=== PATIENT | female | born 1960 | race Caucasian/White ===

== ENCOUNTER 2019-04-04 14:03 | Day surgery (SDC) | payer OTHER, SELFPAY ==
--- NOTE | 2019-04-02 21:29 | PCM.HP.BLA ---
History and Physical Date of Admission: 04/04/19 Louise Vinson 1960 ? ? REFERRING PHYSICIAN: Luz Wisdom MD ? CHIEF COMPLAINT: Consult (Consult Colonoscopy) ? HPI: The patient is a 58 year old female presents for consideration of screening for colon cancer via colonoscopy. Last colonoscopy was in 2007 No colon cancer known in family. Denies heartburn, denies acid indigestion. Had been evaluated by ENT and felt that she had reflux. Trialed on antacids with no relief. Feels like mucus buildup in the pharyngeal area. Occasional blood in stools. Denies abdominal pain Denies changes in bowel habits. Denies weight changes, denies fevers. She states that she takes an herbal at night time to be able to have a bowel movement, otherwise when she stops taking, then she is constipated ? ? PAST MEDICAL HISTORY ? Multiple thyroid nodules ? ? PAST SURGICAL HISTORY ? APPENDECTOMY ? 1974 ? CARPAL TUNNEL Right 2013 ? COLONOSCOP W/ OR W/O [facility] SPEC ? 04/28/2008 ? Colonoscopy ? ? Current Outpatient Medications ? OTC NUTRITIONAL SUPPLEMENT immune support ? LYSINE ORAL Take by mouth. ? lisinopril (ZESTRIL, PRINIVIL) 10 mg tablet Take 10 mg by mouth once daily. ? hydroCHLOROthiazide (HYDRODIURIL, ESIDRIX) 25 mg tablet ? ? BURRER OPERATOR THYROID 30 mg tablet ? ? OTC NUTRITIONAL SUPPLEMENT liver balance ? multivitamin tablet Take 1 tablet by mouth once daily. ? peg 3350-electrolytes (COLYTE) 240-22.72-6.72 -5.84 gram solution Take 4,000 mL by mouth one time only for 1 dose. ? L.ACID/L.CASEI/B.BIF/B.KRYSTIAN/FOS (PROBIOTIC BLEND ORAL) Take by mouth. ? ? ALLERGIES: Nsaids (Non-Steroidal Anti-Inflammatory Drug) ? PERSONAL HISTORY: Social History Tobacco Use ? Smoking status: Never Smoker ? Smokeless tobacco: Never Used Substance Use Topics ? Alcohol use: No ? Drug use: No ? FAMILY HISTORY ? Heart Father ? ? Diabetes Father ? ? Cancer Sister ? ? Half Sister: Ovarian/Uterine ? Cancer Maternal Grandmother ? ? Ovarian/Uterine ? ? REVIEW OF SYSTEMS: General - denies fevers Cardiovascular - denies chest pain, has MVP Pulmonary - denies shortness of breath Gastrointestinal - see HPI, denies abdominal pain Neurological - denies seizures Genitourinary - denies burning with urination Hematological - denies spontaneous/prolonged bleeding Skin - denies nonhealing skin wounds Musculoskeletal - denies chronic joint/back pain Endocrine - denies diabetes Psychological ? denies hallucinations ? PHYSICAL EXAMINATION: General: ?The patient is 56 year old female, well nourished, well hydrated in no acute distress. ?The patient is oriented to time, place, and person. VITALS: Blood pressure 164/94, pulse 77, temperature 36.9 ?C (98.5 ?F), temperature source Temporal Artery, height 170.2 cm (5' 7), weight 76 kg (167 lb 9.6 oz), last menstrual period 05/16/2014, SpO2 100 %. Body mass index is 26.25 kg/m?. Head ? Normocephalic. EOM intact with sclera clear and no icterus noted. Mouth with mucus membranes moist. Neck - supple with no jugular venous distention noted. Trachea is midline. Lungs ? clear to auscultation. Normal breath sounds. No rales/rhonchi/wheezing noted. No labored breathing noted, such as retractions. . Heart ? normal S1 and S2 auscultated. No rubs/clicks/murmurs noted. Regular rate. Abdomen ? soft and benign. Normal bowel sounds. Extremities ? no calf tenderness noted. Skin ? normal skin integrity. Neurological ??gait normal, no focal deficits noted Psych ? calm and appropriate ? IMPRESSION: screening for colon cancer via colonoscopy ? PLAN: I have discussed the above with the patient. I have offered colonoscopy, possible biopsies I have explained the procedure to the patient. I have counseled the patient as to the risks of the procedure, including but not limited to: infection, bleeding, perforation of the GI tract, injury to any intraabdominal organs such as the liver/spleen, inability to complete the procedure, complications of anesthesia, etc. ? the patient understands. The patient wishes to proceed. I have answered all questions to the patient?s satisfaction and the patient has no further questions. . Diagnoses: (Z12.11) Screening for colon cancer (primary encounter diagnosis) Return to Clinic: The patient is instructed to follow-up with me as above
[2019-04-04] VITALS (7 sets, daily range): BP systolic 145–159; BP diastolic 79–92; PULSE 63–68; RESP 16; TEMP 35.6–36.7; O2SAT 98–100; BMI 25.4
--- NOTE | 2019-04-04 15:15 | COLBX_PTH ---
PATIENT: THELMA TOLEDO LOC: EN U#:[id number] AGE/SX: 58/F ROOM: RE04/04/[address]: Dr. Luz Wisdom MD : 1960 BED: DIS: 04/04/2019 SPEC #: [id number] RECD: 04/04/19 16:47 STATUS: LEOBARDO RELuis Antonio #: [id number] MARK: 04/04/19 15:[address]: Luz Wisdom DEPT: SURGICAL PATHOLOGY RECD BY: Jose Guadalupe Horton ENTERED: 04/05/19 10:45 SP TYPE: COLON BX OTHR DR: Dr. Narcisa Segovia, Tissues: COLON BIOPSY Procedures: Surgery Specimen Level IV HEADER OPERATION: Colonoscopy (MAC) PRE-OP DIAGNOSIS: Screening TISSUE SUBMITTED: Right colon polyp (cold snare) MICROSCOPIC DIAGNOSIS Right colon polyp, biopsy: Tubular adenoma. AM:malena 04/06/19 MICROSCOPIC DESCRIPTION Slides are reviewed. GROSS DESCRIPTION Received in fixative is one container labeled with the patient's name and designated right colon polyp. The specimen consists of one irregular fragment of light cisneros soft tissue that measures 0.2 x 0.2 x 0.1 cm. The specimen is totally submitted in one cassette. / AM:malena 04/05/19 TC:5 CPT: 19495
--- NOTE | 2019-04-04 16:39 | OP.COLON_ITS ---
Patient Name: Louise Vinson Procedure Date: 04/04/2019 3:32 PM Date of : 1960 Age: 58 Procedure: Colonoscopy Indications: Screening for colorectal malignant neoplasm Providers: Luz Wisdom MD Referring MD: Narcisa Segovia Medicines: See the Anesthesia note for documentation of the administered medications Patient Profile: Refer to note in patient chart for documentation of history and physical. Last Colonoscopy: 10 years ago. Complications: No immediate complications. Procedure: Pre-Anesthesia Assessment: - see anesthesia note After I obtained informed consent, the scope was passed under direct vision. Throughout the procedure, the patient's blood pressure, pulse, and oxygen saturations were monitored continuously. The colonoscope was introduced through the anus and advanced to the cecum, identified by the appendiceal orifice, IC valve and transillumination. The colonoscopy was performed without difficulty. The patient tolerated the procedure well. The quality of the bowel preparation was poor, there was still retained fecal material. Therefore lavage and aspiration was done to clear the fecal material. This took some time. The wilkins were cleared adequately after prolonged time was spent in doing this. Scope In: 3:42:55 PM Scope Withdrawal Time 0 hours 14 minutes 58 seconds Scope Out: 4:29:39 PM Total Procedure Duration Time 0 hours 46 minutes 44 seconds Findings: The perianal and digital rectal examinations were normal. Pertinent negatives include normal sphincter tone. A 3 to 8 mm polyp was found in the ascending colon. The polyp was semi-pedunculated. The polyp was removed with a cold biopsy forceps. Resection and retrieval were complete. Verification of patient identification for the specimen was done by the nurse. Estimated blood loss was minimal. Non-bleeding internal hemorrhoids were found. Impression: - Preparation of the colon was poor. - One 3 to 9 mm polyp in the ascending colon, removed with a cold biopsy forceps. Resected and retrieved. - Non-bleeding internal hemorrhoids. Recommendation: - Repeat colonoscopy date to be determined after pending pathology results are reviewed for surveillance based on pathology results. - My office will telephone with pathology results in 1-2 weeks with above - Continue present medications. Procedure Code(s): --- Professional --- 77215, Colonoscopy, flexible; with biopsy, single or multiple Diagnosis Code(s): --- Professional --- Z12.11, Encounter for screening for malignant neoplasm of colon K64.8, Other hemorrhoids D12.2, Benign neoplasm of ascending colon CPT copyright 2017 [employer]. All rights reserved. The codes documented in this report are preliminary and upon travel coordinator review may be revised to meet current compliance requirements. MD Luz Blair MD 04/04/2019 4:38:38 PM This report has been signed electronically. Number of Addenda: 0 Note Initiated On: 04/04/2019 3:32 PM
== END 2019-04-04 17:22 | disposition home or self-care (01) ==
LOC: EN 14:05 → AC 14:09
PROVIDERS: Referring Provider Surgery; Visit Provider Surgery
PROC: 0DJD8ZZ Inspection of Lower Intestinal Tract, Via Natural or Artificial Opening Endoscopic (ICD-10-PCS; CPT 45378; principal; 2019-04-04 15:10)
DX: Z12.11 Encounter for screening for malignant neoplasm of colon (principal); D12.2 Benign neoplasm of ascending colon; K64.8 Other hemorrhoids; I10 Essential (primary) hypertension; E04.1 Nontoxic single thyroid nodule; Z78.0 Asymptomatic menopausal state; Z79.899 Other long term (current) drug therapy
CPT/HCPCS: 45380; 88305; J7050; J7120; J2405

== ENCOUNTER 2021-02-21 17:29 | Outpatient (CLI) | payer OTHER, SELFPAY ==
[2021-02-21] MEDS: 0.9% Saline Lock 10 ML Syringe IV (17:43)
[2021-02-21 17:45] VITALS: BP 126/69; PULSE 89; RESP 16; TEMP 37.4; O2SAT 99; BMI 25.8
[2021-02-21 18:40] VITALS: BP 130/63; PULSE 73; RESP 16; TEMP 36.8; O2SAT 99
[2021-02-21 19:40] VITALS: BP 156/82; PULSE 98; RESP 16; TEMP 36.7; O2SAT 100
== END 2021-02-21 19:40 | disposition home or self-care (01) ==
LOC: MS3OUT 17:29 → MS3 17:30
PROVIDERS: Referring Provider Nurse Practitioner Adult Health; Visit Provider Nurse Practitioner Adult Health
DX: U07.1 COVID-19 (principal)
CPT/HCPCS: J7050; M0243; A4216; Q0240

== ENCOUNTER 2022-01-18 16:10 | Emergency (ER) | payer OTHER, SELFPAY ==
[2022-01-18 16:12] VITALS: BP 175/72; PULSE 83; RESP 16; TEMP 36.4; O2SAT 98; BMI 25.7
--- NOTE | 2022-01-18 16:20 | EKG12_ITS ---
Test Reason : CP Blood Pressure : / mmHG Vent. Rate : 076 BPM Atrial Rate : 076 BPM P-R Int : 156 ms QRS Dur : 084 ms QT Int : 380 ms P-R-T Axes : 046 018 045 degrees QTc Int : 427 ms Normal sinus rhythm with sinus arrhythmia Nonspecific ST and T wave abnormality Abnormal ECG Confirmed by RENZO FRANCISCO, BRODERICK ([id number]), editor managing newspaper AILYN BOWMAN ([id number]) on 01/20/2022 11:16:29 AM Referred By: TL Confirmed By:BRODERICK MULLER MD
[2022-01-18 16:32] VITALS: O2SAT 98
--- NOTE | 2022-01-18 16:34 | NURSING ---
NO OLD EKGS
--- NOTE | 2022-01-18 16:48 | RAD_ITS ---
STUDY: X-RAY CHEST REASON FOR EXAM: Female, 61 years old. chest pain TECHNIQUE: Single AP portable view of the chest. COMPARISON: None. FINDINGS: The lungs are clear and expanded. There is no demonstrated pleural abnormality. Normal size heart. Normal mediastinum and angela. Normal visualized pulmonary arteries. Normal visualized aortic arch and descending thoracic aorta. Normal visualized thoracic spine. Normal visualized ribs, clavicles, and shoulders. There is no demonstrated abnormality of the visualized soft tissue structures of the upper abdomen. RAD/Chest 1 View (Portable) IMPRESSION: Normal x-ray examination of the chest. Electronically Signed: Win Melgar MD at 17:42 EDT ,
[2022-01-18 16:52] LABS: Absolute Lymphocyte Count 1.94 X10^3/uL (0.83-4.51); Absolute Neutrophil Count 2.7 X10^3/uL (2.0-7.7); Basophil# 0.03 X10^3/uL; Basophil% 0.6 % (0-1); Eosinophil# 0.04 X10^3/uL; Eosinophils% 0.8 % (0-5); Hematocrit 35.5 % (37-47); Hemoglobin 11.5 g/dL (12.0-15.0); Lymphocyte # 1.94 X10^3/ul (0.83-4.51); Lymphocyte % 37.4 % (19-41); Mean Corp Hgb Conc 32.4 g/dL (32-36); Mean Corpuscular Hgb 28.8 pg (27.0-32.0); Mean Platelet Vol. 10.5 fl (6.2-12.0); Monocyte# 0.52 X10^3/uL; NRBC Flagged by Analyzer 0 % (0-5); Neutrophil # 2.65 X10^3/uL (2.7-7.7); Platelet Count 235 K/mm3 (150-450); RBC Distribution Width CV 13.5 % (11.6-14.6); RBC Distribution Width SD 44.3 fl (35.1-43.9); Red Blood Count 3.99 M/mm3 (4.2-5.4); White Blood Count 5.2 K/mm3 (4.4-11.0)
[2022-01-18 17:11] LABS: Anion Gap 7 (5-15); BUN 18 mg/dL (7-18); BUN/Creat Ratio 20.9 RATIO (10-20); Calcium,Total 9.7 mg/dL (8.5-10.1); Chloride 107 mmol/L (98-107); Creatinine, Serum 0.86 mg/dL (0.55-1.02); EST Glomerular Filtration Rate 71 mL/min (>60); Est Glom Filt Rate - Afr Amer 86 mL/min (>60); Glucose 109 mg/dL (74-106); Potassium 3.4 mmol/L (3.5-5.1); Sodium Level 141 mmol/L (136-145); Troponin-I HS 10 pg/mL (3.0-54.0)
--- NOTE | 2022-01-18 17:19 | CT_ITS ---
STUDY: CT BRAIN WITHOUT CONTRAST REASON FOR EXAM: Female, 61 years old. headaches RADIATION DOSAGE (If Supplied By Facility): CTDIvol = ( 44.99 ) mGy, DLP = ( 762.36 ) mGycm TECHNIQUE: Transaxial CT imaging of the brain was performed without administration of intravenous contrast material. Individualized dose optimization techniques were used for this CT. COMPARISON: No relevant priors. FINDINGS: Normal soft tissue structures. Normal calvarium. Normal size ventricles and extra-axial spaces for the patient''s age. Normal white matter tracts of the cerebral hemispheres. Normal basal ganglia and thalami. Normal brainstem. Normal cerebellum. There is no intracranial hemorrhage. There are no findings of an acute ischemic infarction. Normal visualized paranasal sinuses. CT/Brain/Head without Contrast IMPRESSION: Normal unenhanced CT scan of the brain. Electronically Signed: Win Melgar MD at 17:51 EDT ,
[2022-01-18 18:09] VITALS: BP 152/78; PULSE 64; RESP 16; O2SAT 99
--- NOTE | 2022-01-18 18:47 | EDS_ITS ---
HPI History of Present Illness Chief Complaint: Hypertension Informant: patient Narrative Narrative: Patient is here for concern of her blood pressure. She has a longstanding history of blood pressure. She was on twelve 1/2 hydrochlorothiazide and 10 mg of lisinopril. She was having some intermittent palpitations and pounding in her chest with a little pressure in the back of her head. This was correlated with elevated blood pressure. She saw her doctor and her dose was increased to 20 of lisinopril and 12-1/2 of hydrochlorothiazide. She still has a symptoms occasionally. She denies chest pain but she gets a thumping feeling. She was concerned because her blood pressures been running 150s and even as high as 190 once at home. She is due to fly out of the country here in a few days and she was concerned because of the blood pressure. She is not having symptoms now. [facility] Medical History HTN (hypertension) HTN (hypertension) Home Medications hydrochlorothiazide 25 mg tablet 12.5 mg PO DAILY 03/14/16 [History Last Taken Unknown] lisinopril 20 mg tablet 20 mg PO QHS 03/14/16 [History Last Taken Unknown] thyroid (pork) 30 mg tablet ([place] Thyroid) 30 mg PO DAILY 03/14/16 [History Last Taken 04/04/19] Vsc 1 cap PO DAILY 04/01/19 [History Last Taken Unknown] Mucinex 02/21/21 [History Last Taken Unknown] [place] 3 02/21/21 [History Last Taken Unknown] famotidine 20 mg tablet (Pepcid) 20 mg PO DAILY 02/21/21 [History Last Taken Unknown] Allergy/AdvReac Type Severity Reaction Status Date / Time NSAIDS (Non-Steroidal AdvReac Other Verified 01/18/22 16:39 Anti-Inflamma Social History Smoking Status: Never smoker ROS ROS ED Constitutional Constitutional ED: Denies chills or fever(s) Eyes Eyes: Denies blurry vision, change in vision or diplopia ENT ENT ED: Denies rhinorrhea or sore throat Cardiovascular Cardiovascular: Reports palpitations; Denies chest pain or racing heartbeat Respiratory/Chest Respiratory/Chest: Denies cough or dyspnea Gastrointestinal Gastrointestinal: Denies nausea or vomiting Musculoskeletal Musculoskeletal: Denies back pain or neck pain Integumentary Denies rash Neurologic Neurologic: Reports headache(s); Denies paresthesias or weakness Endocrine Endocrinology: Denies polydipsia or polyuria Hematologic/Lymphatic Hematologic/Lymphatic: Denies easy bleeding or easy bruising Allergic/Immunologic Allergic/Immunologic ED: Denies urticaria EXAM Physical Exam Const Vital Signs: 01/18/22 16:12 01/18/22 16:32 01/18/22 16:39 Temperature 97.5 F L Temperature Source Temporal Pulse Rate 83 Respiratory Rate 16 Respiratory Effort Normal Blood Pressure 175/72 H Blood Pressure Mean 106 Pulse Ox 98 98 Oxygen Delivery Method Room Air Room Air 01/18/22 18:09 Temperature Temperature Source Pulse Rate 64 Respiratory Rate 16 Respiratory Effort Blood Pressure 152/78 H Blood Pressure Mean 102 Pulse Ox 99 Oxygen Delivery Method Room Air Positive well nourished Constitutional Narrative: No temporal artery tenderness. No sign of mass skin changes or tenderness on the scalp General Appearance ED: NAD HEENT Reports moist mucous membranes Eyes PERRL and EOMs intact bilaterally Resp normal respiratory effort and clear to auscultation bilaterally Cardio regular rate and regular rhythm GI normal to inspection, nondistended, normoactive bowel sounds and non-tender Palpation: soft Back/Spine no CVA tenderness Extremity normal to inspection General Extremety ED: Negative for edema or tenderness General Extremity: Negative for edema Neuro oriented x3 and no sensory deficits noted Sensorium / Orientation: alert Motor Exam: strength 5/5 throughout Psych mental status grossly normal Skin no rashes or lesions noted MDM MDM MDM Narrative Medical decision making narrative: Patient had an essentially normal CBC other than minimal anemia at 11.5. This is nonspecific and can be worked up as an outpatient. Potassium was minimally low at 3.4. Diet should correct this. Glucose was 109. Troponins negative. Chest x-ray was negative. CT scan of the head was negative Patient's blood pressure is generally been running about 150s over 80s here. I explained that this needs long-term treatment but does not need acute lowering. She has room to increase her lisinopril if her blood pressure remains high. We recommended contacting her physician. Return with chest pain, trouble breathing, neurologic deficit or other concerns Lab Data Attestation: I reviewed the patient's lab results. Labs: Laboratory Results - last 24 hr 01/18/22 01/18/22 16:35 16:35 WBC 5.2 RBC 3.99 L Hgb 11.5 L Hct 35.5 L MCV 89.0 MCH 28.8 MCHC 32.4 RDW Std Deviation 44.3 H RDW Coeff of [place] 13.5 Plt Count 235 MPV 10.5 Immature Gran % (Auto) 0.200 Neut % (Auto) 51.0 Lymph % (Auto) 37.4 [place] % (Auto) 10.0 Eos % (Auto) 0.8 Baso % (Auto) 0.6 Absolute Neuts (auto) 2.7 Absolute Lymphs (auto) 1.94 Nucleated RBC % 0 Sodium 141 Potassium 3.4 L Chloride 107 Carbon Dioxide 27.0 Anion Gap 7 BUN 18 Creatinine 0.86 Estim Creat Clear Calc 66.80 Est GFR (MDRD) Af Amer 86 Est GFR (MDRD) Non-Af 71 BUN/Creatinine Ratio 20.9 H Glucose 109 H Calcium 9.7 Troponin I High Sens 10 Radiography Diagnostic Testing: Clinical Impression(s) from Imaging Studies Chest X-Ray 01/18/22 16:48 IMPRESSION: Normal x-ray examination of the chest. Electronically Signed: Win Melgar MD at 17:42 EDT , Brain CT 01/18/22 17:19 IMPRESSION: Normal unenhanced CT scan of the brain. Electronically Signed: Win Melgar MD at 17:51 EDT , Discharge Plan Triage Chief Complaint: Hypertension ED Provider: Alireza Hutton Dx/Rx/DC Orders Clinical Impression: Elevated blood pressure reading, Intermittent headache, History of palpitations Prescriptions: No Action lisinopril 20 MG tablet 20 mg PO QHS hydrochlorothiazide 25 MG tablet 12.5 mg PO DAILY thyroid (pork) [[place] Thyroid] 30 MG tablet 30 mg PO DAILY Vsc 1 cap PO DAILY famotidine [Pepcid] 20 mg Tablet 20 mg PO DAILY Mucinex [place] 3 Primary Care Provider: Carmen Man NP Referrals: Carmen Man NP, [employer] [Primary Care Provider] - As soon as possible Disposition Disposition: Home, Self Care
--- NOTE | 2022-01-18 18:54 | EX.ED.DYSGE1 ---
HPI History of Present Illness Chief Complaint: Hypertension [facility] Medical History HTN (hypertension) HTN (hypertension) Home Medications hydrochlorothiazide 25 mg tablet 12.5 mg PO DAILY 03/14/16 [History Last Taken Unknown] lisinopril 20 mg tablet 20 mg PO QHS 03/14/16 [History Last Taken Unknown] thyroid (pork) 30 mg tablet ([place] Thyroid) 30 mg PO DAILY 03/14/16 [History Last Taken 04/04/19] Vsc 1 cap PO DAILY 04/01/19 [History Last Taken Unknown] Mucinex 02/21/21 [History Last Taken Unknown] [place] 3 02/21/21 [History Last Taken Unknown] famotidine 20 mg tablet (Pepcid) 20 mg PO DAILY 02/21/21 [History Last Taken Unknown] Allergy/AdvReac Type Severity Reaction Status Date / Time NSAIDS (Non-Steroidal AdvReac Other Verified 01/18/22 16:39 Anti-Inflamma Social History Smoking Status: Never smoker EXAM Physical Exam Const Vital Signs: 01/18/22 16:12 01/18/22 16:32 01/18/22 16:39 Temperature 97.5 F L Temperature Source Temporal Pulse Rate 83 Respiratory Rate 16 Respiratory Effort Normal Blood Pressure 175/72 H Blood Pressure Mean 106 Pulse Ox 98 98 Oxygen Delivery Method Room Air Room Air 01/18/22 18:09 Temperature Temperature Source Pulse Rate 64 Respiratory Rate 16 Respiratory Effort Blood Pressure 152/78 H Blood Pressure Mean 102 Pulse Ox 99 Oxygen Delivery Method Room Air [facility] MDM Lab Data Labs: Laboratory Results - last 24 hr 01/18/22 01/18/22 16:35 16:35 WBC 5.2 RBC 3.99 L Hgb 11.5 L Hct 35.5 L MCV 89.0 MCH 28.8 MCHC 32.4 RDW Std Deviation 44.3 H RDW Coeff of [place] 13.5 Plt Count 235 MPV 10.5 Immature Gran % (Auto) 0.200 Neut % (Auto) 51.0 Lymph % (Auto) 37.4 [place] % (Auto) 10.0 Eos % (Auto) 0.8 Baso % (Auto) 0.6 Absolute Neuts (auto) 2.7 Absolute Lymphs (auto) 1.94 Nucleated RBC % 0 Sodium 141 Potassium 3.4 L Chloride 107 Carbon Dioxide 27.0 Anion Gap 7 BUN 18 Creatinine 0.86 Estim Creat Clear Calc 66.80 Est GFR (MDRD) Af Amer 86 Est GFR (MDRD) Non-Af 71 BUN/Creatinine Ratio 20.9 H Glucose 109 H Calcium 9.7 Troponin I High Sens 10 Radiography Diagnostic Testing: Clinical Impression(s) from Imaging Studies Chest X-Ray 01/18/22 16:48 IMPRESSION: Normal x-ray examination of the chest. Electronically Signed: Win Melgar MD at 17:42 EDT Reading Location ID and State: [id number] / [employer] Tel , Service support , Brain CT 01/18/22 17:19 IMPRESSION: Normal unenhanced CT scan of the brain. Electronically Signed: Win Melgar MD at 17:51 EDT Reading Location ID and State: [id number] / [employer] Tel , Service support , EKG Initial EKG: Comments: He can for work-up of palpitations read by me shows sinus rhythm with mild sinus arrhythmia. Overall rate of 76. Nonspecific ST and T wave change but no sign of infarct or ischemia acutely. WI interval, QRS duration and QTc normal. Discharge Plan Triage Chief Complaint: Hypertension ED Provider: Alireza Hutton Dx/Rx/DC Orders Clinical Impression: Elevated blood pressure reading, Intermittent headache, History of palpitations Prescriptions: No Action lisinopril 20 MG tablet 20 mg PO QHS hydrochlorothiazide 25 MG tablet 12.5 mg PO DAILY thyroid (pork) [[place] Thyroid] 30 MG tablet 30 mg PO DAILY Vsc 1 cap PO DAILY famotidine [Pepcid] 20 mg Tablet 20 mg PO DAILY Mucinex [place] 3 Primary Care Provider: Carmen Man NP Referrals: Carmen Man NP, [facility] [Primary Care Provider] - As soon as possible Disposition Disposition: Home, Self Care
[2022-01-18 19:25] VITALS: BP 152/78; RESP 18
== END 2022-01-18 19:27 | disposition home or self-care (01) ==
PROVIDERS: Emergency Provider Emergency Medicine; PCP Nurse Practitioner Family; Visit Provider Emergency Medicine
DX: I10 Essential (primary) hypertension (principal); R51.9 Headache, unspecified; Z79.899 Other long term (current) drug therapy
CPT/HCPCS: 70450; 71045; 80048; 84484; 85025; 93005; 99284; A4216

== ENCOUNTER 2022-04-25 05:55 | Day surgery (SDC) | payer OTHER, SELFPAY ==
--- NOTE | 2022-04-24 22:36 | PCM.HP.BLA ---
History and Physical Date of Admission: 04/25/22 HISTORY OF PRESENT ILLNESS 61 year old woman presents with a painful soft tissue mass left anterior thigh that she has had for several years that has recently enlarged over the last several months.? She denies any trauma.? She denies any recent infection. She also noticed a soft tissue mass on her right anterior thigh that has started to enlarge but more slowly as compared to the left thigh. ? She has smaller soft tissue masses on her bilateral upper extremities and right upper abdominal wall/lower chest wall that are not bothering her at this time.? She has had a basal cell carcinoma excised from her right medial leg in the past.? She has no problems with using her extremities for activities of daily living.? There is some discomfort when the left anterior thigh mass is bumped.? She presents at this time for further evaluation and treatment. PAST MEDICAL HISTORY Benign lipomatous neoplasm of kidney COVID-19 Dysesthesia Rosibel's thyroiditis Heart murmur HTN (hypertension) HTN (hypertension) Personal history of skin cancer Skin cancer, basal cell Subcutaneous mass of abdominal wall Subcutaneous mass of left lower extremity Subcutaneous mass of left upper extremity Subcutaneous mass of right lower extremity Subcutaneous mass of right upper extremity UTI (urinary tract infection) PAST SURGICAL HISTORY Carpal tunnel syndrome History of appendectomy ALLERGIES NSAIDS MEDICATIONS hydrochlorothiazide lisinopril thyroid (pork) ([place] Thyroid) Vsc 1 [place] 3? famotidine FAMILY HISTORY Mother - Angina at rest, Hypertension, Multiple lipomas Father - Angina at rest, Diabetes, Heart disease, CVA (cerebral vascular accident), Lymphoma Brother - Diabetes, Heart disease Sister - Lymphoma SOCIAL HISTORY Smoking Status:? Never smoker alcohol intake:? never substance use type:? does not use REVIEW OF SYSTEMS General - Denies fever and weight loss.? Has fatigue. Eyes - Denies cataracts and glaucoma. ENT - Denies nasal congestion and sore throat. Endocrine - Has excessive thirst and urination.? Has Rosibel's disease. Skin - Has personal history of skin cancer.? Has painful soft tissue mass left anterior thigh.? Has soft tissue masses right anterior thigh, bilateral upper extremities, and right upper abdominal wall/lower chest wall. Musculoskeletal - Denies joint pain, joint stiffness, weakness of muscles and joints, back pain, and arthritis. Neuro - Denies headaches. Cardiovascular - Denies chest pain, fatigue, and shortness of breath with exertion. Psych - Denies anxiety and depression. Respiratory - Denies chronic cough and shortness of breath. Gastrointestinal - Denies nausea, vomiting, diarrhea, and constipation. Hematologic - Denies abnormal bruising and bleeding. Genitourinary - Denies hematuria.? Has urinary frequency. PHYSICAL EXAMINATION General - Alert and Oriented. HEENT - PERRL. EOMI.? Throat is clear.? No suspicious lesions noted. Neck - Supple and nontender.? No cervical adenopathy.? No suspicious lesions noted. Lungs - Clear to auscultation. Heart - Regular rate and rhythm. Abdomen - Soft and nondistended.? On the right upper abdominal wall/lower chest wall over the lower ribs is a soft tissue mass.? Measures 2 cm.? It is mobile.? No evidence of infection. No other suspicious lesions noted. Extremities - FROM. No axillary adenopathy.? Radial pulses are palpable.? Patient is right hand dominant.? On the left proximal anterior thigh is a soft tissue mass that is multilobular.? It is mobile.? Some discomfort with palpation.? Measures 9 cm.? No ulceration.? No evidence of infection.? On the right proximal anterior thigh is a soft tissue mass.? It is mobile.? Measures 7 cm.? No ulceration.? Mass is nontender.? No evidence of infection. On the left proximal volar forearm are two soft tissue masses.? They are mobile.? The radial one measures 2.5 cm.? The ulnar one measures 2.5 cm.? No ulceration.? Masses are nontender.? No evidence of infection. On the left medial antecubital area is a soft tissue mass.? It is mobile.? Measures 4 cm.? No ulceration.? Mass is nontender.? No evidence of infection. On the left anterior arm is a soft tissue mass.? It is mobile.? Measures 4 cm.? No ulceration.? Mass is nontender.? No evidence of infection. On the right volar forearm are three soft tissue masses.? They are mobile.? The proximal one measures 2 cm.? The mid forearm one measures 4 cm.? The distal one measures 2 cm.? No ulceration.? Masses are nontender.? No evidence of infection. On the right medial antecubital area is a soft tissue mass.? It is mobile.? Measures 4 cm.? No ulceration.? Mass is nontender.? No evidence of infection. On the right anterior arm is a soft tissue mass.? It is mobile.? Measures 2 cm.? No ulceration.? Mass is nontender.? No evidence of infection. Neuro - CN II-XII grossly intact. Psych - Normal mood and affect. ASSESSMENT 1.? 9 cm painful soft tissue mass left proximal anterior thigh. 2.? 7 cm soft tissue mass right proximal anterior thigh. 3.? 2 cm soft tissue mass right upper abdominal wall/lower chest wall. 4.? 2.5 cm soft tissue mass left proximal volar forearm, ulnar. 5.? 2.5 cm soft tissue mass left proximal volar forearm, radial. 6.? 4 cm soft tissue mass left medial antecubital area. 7.? 4 cm soft tissue mass left anterior arm. 8.? 2 cm soft tissue mass right proximal volar forearm. 9.? 4 cm soft tissue mass right mid volar forearm. 10.? 2 cm soft tissue mass right distal volar forearm. 11,? 4 cm soft tissue mass right medial antecubital area. 12. 2 cm soft tissue mass right anterior arm. 13.? Personal history of skin cancer. PLAN Recommend excision of the painful soft tissue mass left proximal anterior thigh and send it to Pathology for analysis to rule out carcinoma.? If carcinoma is present, then further excision is necessary.? Skin graft or skin flap reconstruction may be needed. The other soft tissue masses are not bothering her at this time.? If they become symptomatic in the future, then excision can be done at that time. Due to the large size of the soft tissue mass left proximal anterior thigh, a drain will be placed for 7-10 days followed by irland[place] wrap compression to minimize a seroma formation postoperatively. After excision, if there are some irregularities at the edges, power assisted lipoplasty may be done to help feather out the edges. Surgery can be done under local anesthesia and IV sedation or general anesthesia on an outpatient basis. Patient was informed of the risks and complications of the procedure including alternatives to surgery.? These were discussed with the patient personally.? Patient voices understanding and wishes to proceed. Some of the risks and complications were included in a form from the [place] [employer]. Patient states that she may have one of her kidneys removed in the near future due to what appears to be the growth of a benign appearing mass with a vascular component according to the patient. After healing has occurred, she will have the soft tissue mass right proximal anterior thigh excised. UPDATE Since the dictation was done yesterday, 04/24/22, there has been no changes to her History and Physical for her elective surgery on 04/25/22. Assessment & Plan Assessment/Plan (1) Subcutaneous mass of left lower extremity: (2) Dysesthesia: (3) Personal history of skin cancer:
[2022-04-25] VITALS (7 sets, daily range): BP systolic 123–174; BP diastolic 67–80; PULSE 63–79; RESP 16–18; TEMP 36.6–36.7; O2SAT 94–99; BMI 26.6
[2022-04-25] MEDS: Lactated Ringers 1,000 ML 15 ML IV (06:30)
[2022-04-25] MEDS: Cefazolin 2 GM in 0.9% Normal Saline 100 ML IV (07:26)
--- NOTE | 2022-04-25 07:30 | MASS_PTH ---
PATIENT: THELMA TOLEDO LOC: [facility] [place] U#:[id number] AGE/SX: 61/F ROOM: RE04/25/[address]: Dr. Mynor Le MD : 1960 BED: DIS: 04/25/2022 SPEC #: [id number] RECD: 04/25/22 10:35 STATUS: LEOBARDO REQ #: [id number] MARK: 04/25/22 07:[address]: Mynor Le DEPT: SURGICAL PATHOLOGY RECD BY: Di Parish ENTERED: 04/25/22 13:12 SP TYPE: Mass OTHR DR: Carmen Man, SAS ETL DEVELOPER-C Tissues: Thigh, NOS Procedures: Surgery Specimen Level IV HEADER OPERATION: Excision soft tissue mass anterior thigh PRE-OP DIAGNOSIS: 9 cm painful soft tissue mass left proximal anterior thigh TISSUE SUBMITTED: Left proximal anterior thigh mass MICROSCOPIC DIAGNOSIS Left proximal anterior thigh soft tissue mass, excision: Consistent with angiolipoma. AM:malena 04/28/2022 MICROSCOPIC DESCRIPTION Slides are reviewed. GROSS DESCRIPTION Received in fixative is one container labeled with the patient's name and designated left proximal anterior thigh mass. The specimen consists of multiple lobulated fragments of yellow adipose tissue that in aggregate measure 14 x 13 x 4 cm. Sections reveal yellow adipose cut surfaces without area of hemorrhage, necrosis or cystic degeneration. Lime Kiln Operator sections are submitted in four cassettes. / SJ:malena 04/25/2022 TC:1 CPT: 29540
[2022-04-25] MEDS: Lidocaine 2% /Epi 1:100 (20ml) 20 ML VIAL (07:57)
[2022-04-25] MEDS: Mupirocin Ointment 22gm Tube 1 APPLIC (09:40)
--- NOTE | 2022-04-25 09:49 | PCM.OPRPT ---
Problems Associated Problem List Diagnoses (1) Subcutaneous mass of left lower extremity: (2) Dysesthesia: (3) Personal history of skin cancer: Report of Operation Date of Procedure: 04/25/22 Pre-Operative Diagnosis: 1. 9 cm painful soft tissue mass left proximal anterior thigh. 2. Personal history of skin cancer. Post-Operative Diagnosis: Same. Surgery/Procedure Performed:: Excision 9 cm painful soft tissue mass left proximal anterior thigh with 9 cm layered closure. Description of Surgical Findings:: 61 year old woman presents with a painful soft tissue mass left anterior thigh that she has had for several years that has recently enlarged over the last several months.? She denies any trauma.? She denies any recent infection. She also noticed a soft tissue mass on her right anterior thigh that has started to enlarge but more slowly as compared to the left thigh. ? She has smaller soft tissue masses on her bilateral upper extremities and right upper abdominal wall/lower chest wall that are not bothering her at this time.? She has had a basal cell carcinoma excised from her right medial leg in the past.? She has no problems with using her extremities for activities of daily living.? There is some discomfort when the left anterior thigh mass is bumped.? She presents at this time for further evaluation and treatment. Patient was informed of the risks and complications of the procedure including alternatives to surgery. These were discussed with the patient personally. Patient voices understanding and wishes to proceed. Some of the risks and complications were included in a form from the [employer] [employer]. I used Brandee absorbable hemostat, (I used 2 vials). Reference Number - [id number]. Lot Number - [id number]. Expiration - November 05, 2026. Reference Number - [id number]. Lot Number - [id number]. Expiration - July 08, 2026. I used 900 ml Tumescent Anesthetic Solution 0.05%. ? Normal Saline- 936.5 ml. ? Lidocaine 1% - 50 ml. ? Epinephrine (1 mg/ml) - 1 ml. ? Sodium Bicarbonate - 12.5 mEq I removed 300 ml fatty aspirate from the left proximal anterior thigh area. Another 300 ml of tumescent anesthetic solution oozed out of the wound incision during the lipoplasty. Surgeon: Mynor Le MD supervisor home economics: Rhiannon Frank RNFA. Type of Anesthesia: General Anesthesiologist: Flaquito Mckeon MD and Sebastian Nguyen CRNA Specimen's removed: Painful soft tissue mass left proximal anterior thigh to Pathology. Drains: Khadar. Estimated Blood Loss (mL): 50. Description of Procedure: Patient was taken to OR in supine position and was placed under general anesthesia. The left thigh was prepped and draped in the usual fashion. SCD's were placed for DVT prophylaxis. Perioperative antibiotics were given intravenously. Longitudinal marking was made in the central aspect of the soft tissue mass. Using xylocaine with epinephrine, the marking left proximal anterior thigh was infiltrated. After waiting 5 minutes for the anesthetic to take effect, I made an incision into the subcutaneous tissue. The soft tissue mass was lumpy. There were several smaller soft tissue masses in the superficial subcutaneous tissue that were manually removed and will be sent with the rest of the specimen. After dissecting the mass in its entirety, I then excised the mass off the underlying muscle and fascia. There was no involvement of the mass with the muscle and fascia. The femoral sensory nerves overlying the muscle were seen and preserved. There was some lumpiness at the edges of the wound, so I used power assisted lipoplasty to help with contouring and feathering in this area. I temporarily closed the thigh incision with surgical clips. I used the existing incision for the infiltration of the tumescent solution into the left proximal anterior thigh. ?I I infiltrated about 900 mL into the area.? I then used a power-assisted lipoplasty and removed about 300 mL of fatty aspirate from the left proximal anterior thigh.? I stopped when there was minimal friction and the areas felt clinically smooth and some bloody aspirate was noted in the canister. Because the wound was not occlusive with the surgical clips, some of the tumescent solution came out of the wound, about 250 ml. I irrigated the wound with saline. Hemostasis was obtained with electrocautery. I placed a size 15 blade through a separate stab incision inferiorly and secured to the skin with 3-0 Nylong suture. I sprayed Brandee absorbable hemostat into the left thigh wound to minimize seroma. I used 2 vials. I closed the thigh wound in a multiple layered fashion with 3-0 Monocryl interrupted sutures for the deep dermis and subcutaneous tissue. The skin was approximated with 4-0 Prolene vertical mattress interrupted sutures. ? At the end of the procedure, no hematomas were noted.? I placed antibiotic ointment on the incision followed by Kerlix gauze and a compression irland[place] wrap. ? Patient tolerated the procedure well and was sent to PACU in satisfactory condition. Patient will be sent home on antibiotics and pain medication. Patient will followup in a week for a wound check and for discussion of the pathology report. The sutures will be removed in 2 weeks. The drain will be removed in 10-14 days. She will keep her left leg elevated when sitting. She can ambulate but should minimize standing. Grafts/Implants Used: Brandee x2. Procedure Start Time: 07:57 Procedure Stop Time: 09:46 Complications None. Admit VTE Documentation VTE Present on Admission: No VTE Mechan Device Prophylaxis: SCD's VTE Pharm Prophylaxis ordered?: No Addendum Addendum: Surgery Charges CPT - 69252 ICD-10 - R22.42, R20.8, Z85.828
--- NOTE | 2022-04-25 10:14 | PCM.DC ---
Discharge Instructions Diet Discharge Diet: No restrictions Activity Discharge Activity: May Shower (place plastic bag over left entire leg when showering. Or leave the left leg out of the shower and when finished, can wash the left leg in the sink. Avoid getting the drain site wet.) and - (elevate left leg when sitting. minimize standing.) May shower in (days): 1 (place plastic bag over left entire leg when showering. ) May resume sexual activity in: 10-14 days Weight Bearing Status: Weight bearing as tolerated Keep extremity elevated above heart level: Left Leg Additional Activity Instructions:: if the ir[place]a is too tight, patient may loosen the [place] and rewrap the thigh. Dressing / Incision Call your doctor if your incision/area has: Continuous Slow Oozing, Sudden Increased Bleeding, Increased Pain/ Swelling, Increased Redness, Foul Smelling Discharge and Swelling at the incision site Call your doctor if you observe: Fever of 101 or Higher, Coldness, Increased Pain, Shortness of breath, Chest pain, Calf discomfort and Uncontrolled pain Change Dressing in: do not change dressing (will change operative dressing in the office.) Remove Dressing in: do not remove dressing (can remove the outer [place] wrap if it is too tight and then rewrap a little looser.) Cleanse incision/area with: Keep Dressing Clean & Dry (wear plastic bag over left leg when showering.) Drain: Suction (empty and record drainage daily.) Follow Up Care Please Follow Up With: Mynor Le MD When: one week. call [phone] for appt. Test Results: Test results from this visit will be discussed in further detail at your follow-up appointment, if applicable. Discharge Plan Admission Primary Reason for Your Visit: excision painful soft tissue mass left proximal anterior thigh Attending Provider: Mynor Le Primary Care Provider: Carmen Man NP Discharge Orders/Prescriptions Prescriptions: New cefadroxil 500 mg capsule 500 mg PO BID Qty: 30 0RF L.acidoph,saliva-B.bif-S.therm [Acidophilus Probiotic Blend] 175 mg capsule 1 cap PO DAILY Qty: 30 0RF oxycodone-acetaminophen [Percocet] 5-325 mg tablet 1 tab PO Q6H PRN (Reason: pain (scale score 7-10)) 7 Days Qty: 28 0RF Rx Instructions: 28 tabs (twenty-eight) Continued lisinopril 20 MG tablet 20 mg PO BID hydrochlorothiazide 25 MG tablet 6.25 mg PO DAILY thyroid (pork) [[place] Thyroid] 30 MG tablet 30 mg PO DAILY [place] 3 1 tab OTHER DAILY famotidine [Pepcid] 20 mg tablet 20 mg PO DAILY PRN (Reason: Heartburn) garlic 1,000 mg Capsule 1,000 mg PO DAILY Bill Multiple/Chelated Mineral Tablet 3 tab PO BID multivitamin Capsule 1 cap PO DAILY fiber Capsule 6 cap PO DAILY cholecalciferol (vitamin D3) [Vitamin D3] 25 mcg (1,000 unit) Capsule 25 mcg PO DAILY Referrals / Follow Up: Mynor Le MD [Med Staff - Active Staff] - (followup one week.) Carmen Man NP, UROGYNECOLOGY PHYSICIAN-C [Primary Care Provider] - Disposition Disposition (needs filled in before D/C Order can be placed): Home, Self Care
== END 2022-04-25 12:10 | disposition home or self-care (01) ==
LOC: SDC 05:55 → AC 05:56
PROVIDERS: PCP Nurse Practitioner Family; Referring Provider Nurse Practitioner Family; Visit Provider Surgery
PROC: (CPT 27337; principal; 2022-04-25 07:15)
DX: R22.42 Localized swelling, mass and lump, left lower limb (principal); R20.8 Other disturbances of skin sensation; I10 Essential (primary) hypertension; Z86.16 Personal history of COVID-19; R19.01 Right upper quadrant abdominal swelling, mass and lump; Z85.828 Personal history of other malignant neoplasm of skin; E06.3 Autoimmune thyroiditis; R22.32 Localized swelling, mass and lump, left upper limb; R22.31 Localized swelling, mass and lump, right upper limb; R22.41 Localized swelling, mass and lump, right lower limb
CPT/HCPCS: 27337; 00400; 88305; J7030; J7120; J2405

== ENCOUNTER → 2022-09-17 | Outpatient (CLI) | payer OTHER, SELFPAY ==
--- NOTE | 2022-09-17 08:25 | CT_ITS ---
STUDY: CT ABDOMEN AND PELVIS WITH CONTRAST REASON FOR EXAM: Female, 61 years old. Hypertension -- Creatinine on August 01 was 0.58. RADIATION DOSAGE (If Supplied By Facility): CTDIvol = ( 14.74 ) mGy, DLP = ( 835.69 ) mGycm TECHNIQUE: Transaxial images were obtained from the dome of the diaphragm to the symphysis pubis without oral contrast. Oral and amp; IV Readi-CAT and amp; 100mL Isovue-370 was administered. Sagittal and coronal images were reconstructed. Individualized dose optimization techniques were used for this CT. COMPARISON: None. FINDINGS: The visualized lung bases are unremarkable. The visualized portions of the heart are within normal limits. There is decreased attenuation of the liver consistent with steatosis. Normal gallbladder and extrahepatic biliary system. Normal spleen. Normal pancreas. Normal bilateral adrenal glands. 2 adjacent subcentimeter cysts are seen in the lateral upper pole of the right kidney. Small cysts are also seen in the left kidney. There is a small hiatal hernia. Normal small intestine. Moderate amount of fecal material is seen in the colon more prominent in the right hemicolon. The patient is status post appendectomy. Normal abdominal aorta. Normal inferior vena cava. Normal retroperitoneum. Normal urinary bladder. Normal abdominal wall. Normal osseous structures. CT/Abdomen/Pelvis WITH Contrast IMPRESSION: Moderate amount of fecal material is seen in the colon. Fatty projection of the liver. Small bilateral renal cysts. Electronically Signed: Steve Land MD at 14:53 EDT ,
[2022-09-17 08:55] LABS: CREATININE FINGERSTICK < 0.9 mg/dL (0.55-1.02); EGFR FINGERSTICK > 60.0000 mL/min (>60)
== END | disposition home or self-care (01) ==
LOC: CT 08:24
PROVIDERS: PCP Nurse Practitioner Family; Referring Provider Internal Medicine Cardiovascular Disease; Visit Provider Internal Medicine Cardiovascular Disease
DX: I10 Essential (primary) hypertension (principal)
CPT/HCPCS: 74177; Q9967

== ENCOUNTER → 2022-11-25 | Outpatient (CLI) | payer OTHER, SELFPAY ==
[2022-11-25 10:42] LABS: Anion Gap 3 (5-15); BUN 15 mg/dL (7-18); BUN/Creat Ratio 21.2 RATIO (10-20); Calcium,Total 9.1 mg/dL (8.5-10.1); Chloride 106 mmol/L (98-107); Creatinine, Serum 0.71 mg/dL (0.55-1.02); EST Glomerular Filtration Rate 89 mL/min (>60); Est Glom Filt Rate - Afr Amer 108 mL/min (>60); Glucose 94 mg/dL (74-106); Potassium 3.6 mmol/L (3.5-5.1); Sodium Level 139 mmol/L (136-145)
== END | disposition home or self-care (01) ==
PROVIDERS: PCP Nurse Practitioner Family; Referring Provider Nurse Practitioner Family; Visit Provider Nurse Practitioner Family
DX: Z51.81 Encounter for therapeutic drug level monitoring (principal); Z79.899 Other long term (current) drug therapy
CPT/HCPCS: 36415; 80048

== ENCOUNTER → 2023-04-14 | Outpatient (CLI) | payer OTHER, SELFPAY ==
--- NOTE | 2023-04-14 13:45 | ST.MBS ---
Modified Barium Swallow Patient Information Study Date: 04/14/23 Study Time: 13:00 Direct Billable Minutes: 98 Total Minutes procedure & reportin Diagnosis: Dysphagia R13.10 Referring Physician: Johann Leos Reason for Referral: Objectively assess swallow function, assess risk for aspiration, and determine recommendations for least restrictive diet textures and compensatory strategies to improve safety of swallow. Medical History: PMH: Dysphagia, HTN, Hiatal hernia, GERD (SEE EMR for full PMH). The patient was referred from Dr. Leos due to concerns for dysphagia. The patient had an EGD completed years ago that revealed a hiatal hernia and recommended taking medication for reflux. The patient felt that reflux medication did not help. She had an episode of choking on her own saliva in congregational ~1 month ago resulting in her gasping for air. She has ~1-2 episodes of coughing and choking on foods every 6 months, which also resulted in her gasping for air. These issues have been happening for the past 2-3 years. She also reports excess mucous in her throat and coughing when she lies down. Current Diet Ordered: Regular textures / Thin liquids Dentition: WNL and Natural Teeth Mental Status: WNL Respiratory Status: Oxygenating on Room Air Penetration-Aspiration Scale Penetration-Aspiration Scale: OBJECTIVE ASSESSMENT OF SWALLOW FUNCTION (QUANTITATIVE ? PER TRIAL): PENETRATION / ASPIRATION SCALE (GARBER): 1 = does not enter airway 2 = enters airway/above vocal folds/ejected 3 = enters airway/above vocal folds/not ejected 4 = enters airway/contacts vocal folds/ejected 5 = enters airway/contacts vocal folds/not ejected 6 = enters airway/below vocal folds/ejected 7 = enters airway/below vocal folds/not ejected despite effort 8 = enters airway/below vocal folds/no effort VIDEOFLOROSCOPIC SCALE SCORE (GARBER): Grade I = aspiration of material that has penetrated into the laryngeal vestibule, intact cough reflex Grade II = aspiration < 10 % of the bolus, intact cough reflex Grade III = aspiration of < 10 % of the bolus, reduced cough reflex or aspiration of > 10 % of the bolus, intact cough reflex Grade IV = aspiration of > 10 % of the bolus, reduced cough reflex Penetration-Aspiration Scale Score Thin Liquid via teaspoon: Result: 1= does not enter airway Thin Liquid via teaspoon Trial 2: Result: 1= does not enter airway Thin Liquid via large single sip: cup: Result: 1= does not enter airway Patrick Thick Liquid via large single sip: cup: Result: 1= does not enter airway Pudding via teaspoon: Result: 1= does not enter airway Comment: Esophageal screen = complete clearance. 1/2 Cookie: Result: 1= does not enter airway Comment: Esophageal screen = Retention of ~1/2 of cookie throughout the mid and lower esophagus. Thin Liquid via sequential sips:straw: Result: 1= does not enter airway Comment: Esophageal screen = retrograde flow of barium contrast from the lower to mid esophagus with eventual clearance. Oral Phase Labial Seal: No Labial Escape Tongue Control During Bolus Hold: Posterior escape of less than half of bolus Bolus Preparation/Mastication: Timely and efficient chewing and mashing Bolus Transport/Lingual Motion: Brisk tongue motion Oral Residue: Residue collection on oral structures (piecemeal deglutition of cookie) Pharyngeal Phase Initiation of Pharyngeal Swallow: Bolus head in pyriforms Soft Palate Elevation: Trace column of contrast/air between soft palate and pharyngeal wall Laryngeal Elevation: Comp. Superior move thyroid cart w/comp. apprx arytenoid cart-epig pet Anterior Hyoid Excursion: Complete anterior movement Epiglottic Movement: Complete inversion Laryngeal Vestibule Closure at Height of Swallow: Complete; no air/contrast in laryngeal vestibule Pharyngeal Stripping Wave: Present - complete Pharyngoesophageal Segment Opening: Complete distension and complete duration; no obstruction of flow Tongue Base Retraction: Narrow column of contrast between tongue base & post. pharyngeal wall (sequential sips of thin via straw) Pharyngeal Residue: Collection of residue within or on pharyngeal structures (mild pharyngeal residue with sequential sips of thin, independently cleared with an additional swallow after completion of drink) Esophageal Phase Esophageal Clearance: Esophageal retention w/ retrograde flow below pharyngoesophageal seg. Diagnosis/Impression Diagnosis: Oropharyngeal swallow function grossly WNL; Esophageal dysphagia R13.14 Impression: The patient's oropharyngeal swallow function was grossly WNL. Piecemeal deglutition of cookie with complete clearance after second swallow. The patient's swallow onset with the bolus head in the pyriforms with larger or sequential sips; however, she demonstrated good airway closure throughout the study with no laryngeal penetration or aspiration observed. Small collection of residue in the pyriforms with sequential sips of thin liquids, which she fully cleared with an additional swallow; otherwise, the patient had trace pharyngeal residues after the swallow. The esophageal phase is primarily marked by... -Esophageal retention of cookie in the mid and lower esophagus, which cleared after liquid wash. -Retrograde flow of thin liquids from the lower to the mid esophagus prior to emptying through the lower esophageal sphincter. -CP bar at the level of C5, which did not appear to impact bolus clearance through the upper esophageal sphincter. Recommendations Diet: Regular Textures and Thin Liquids Compensatory Strategies: Small Bites, Small Sips, Slow Rate, Alternate bites/solids and sips/liquids, Sitting upright and Remain sitting upright for 30 minutes after PO intake Recommend Repeat Modified Barium Swallow: No Need for Skilled Speech Therapy Services: No Recommended Referrals: GI Consult (Esophageal retention of cookie. Retrograde flow of liquids.) Education Completed: 1. Described result of evaluation. Status Active ST Patient: Active Contact Information [facility] Speech Therapy:: Willa Lancaster M.A. [facility] Speech-Language Pathologist [facility] [id number] [place] [address] [phone]
== END | disposition home or self-care (01) ==
LOC: RAD 12:57
PROVIDERS: Referring Provider Surgery; Visit Provider Surgery
DX: R13.10 Dysphagia, unspecified (principal)
CPT/HCPCS: 74230; 92611

== ENCOUNTER → 2023-09-23 | Outpatient (CLI) | payer OTHER, SELFPAY ==
--- NOTE | 2023-09-23 17:28 | US_ITS ---
STUDY: RENAL ULTRASOUND - COMPLETE REASON FOR EXAM: Female, 62 years old. RENAL MASS TECHNIQUE: Ultrasound evaluation of the kidneys was performed with real-time and static malave-scale imaging. COMPARISON: CT 09/17/2022 FINDINGS: RIGHT KIDNEY: Normal location of the right kidney, which is normal in size. The right kidney measures 11.2 cm. There is a normal cortex of the right kidney. The renal cortex measures 1.4 cm. There is no change in the 2 subcentimeter hyperechoic areas within the midsection of right kidney corresponding to the fat-containing mass is seen on CT consistent with small lipomas. There are no right renal calculi. There is no right hydronephrosis. DISTAL RIGHT URETER: There is non-visualization of the distal right ureter. There is no demonstrated right ureterovesical junction calculus. There is a visualized right ureteral jet. LEFT KIDNEY: Normal location of the left kidney, which is normal in size. The left kidney measures 10.5 cm. There is a normal cortex of the left kidney. The renal cortex measures 1.3 cm. Similar 3 cm bilobed hyperechoic mass within the midsection of the left kidney which corresponds to a heterogeneous area seen on CT but not definitely consistent with a lipoma or angiomyolipoma. Therefore correlation with a renal mass protocol CT is recommended. There are no left renal calculi. There is no left hydronephrosis. DISTAL LEFT URETER: There is non-visualization of the distal left ureter. There is no demonstrated left ureterovesical junction calculus. There is a visualized left ureteral jet. BLADDER: The distended urinary bladder has a volume of 175 ml. The empty urinary bladder has a volume of 120 ml. There is a normal wall thickness of the distended urinary bladder. There is no demonstrated mass within the urinary bladder. There are no demonstrated bladder calculi. US/Kidney and Bladder IMPRESSION: 1. 2 subcentimeter lipomas in the midsection of right kidney. 2. 3 cm hyperechoic mass in the midsection left kidney likely consistent with lipoma or angiomyolipoma. Correlation with renal mass protocol CT is recommended. 3. Significant post void residual. Electronically Signed: Win Melgar MD at 19:47 EDT ,
== END | disposition home or self-care (01) ==
LOC: US 17:27
PROVIDERS: Referring Provider Urology; Visit Provider Urology
DX: D49.511 Neoplasm of unspecified behavior of right kidney (principal)
CPT/HCPCS: 76770

== ENCOUNTER → 2023-10-15 | Outpatient (CLI) | payer OTHER, SELFPAY ==
--- NOTE | 2023-10-15 07:58 | CT_ITS ---
STUDY: CT ABDOMEN AND PELVIS WITH AND WITHOUT CONTRAST REASON FOR EXAM: Female, 63 years old. Follow up for renal mass. RADIATION DOSAGE (If Supplied By Facility): CTDIvol = ( 14.17 ) mGy, DLP = ( 2074.15 ) mGycm TECHNIQUE: Transaxial images were obtained from the dome of the diaphragm to the symphysis pubis without oral contrast. 100ML ISOVUE 370 was administered. Sagittal and coronal images were reconstructed. Individualized dose optimization techniques were used for this CT. COMPARISON: Comparison is made with prior study dated September 17, 2022. FINDINGS: The visualized lung bases are unremarkable. The visualized portions of the heart are within normal limits. There is decreased attenuation of the liver consistent with steatosis. Normal gallbladder and extrahepatic biliary system. Normal spleen. Normal pancreas. Normal bilateral adrenal glands. Tiny hypodensities in the right kidney. These were demonstrated to be angiomyolipomas on prior ultrasound. Stable 2 cm x 2.9 cm fat-containing renal mass in the midsection of the left kidney suggestive of a angiomyolipoma. This corresponds to the sonographic findings dated September 23, 2023. 1 cm cyst in the lateral aspect of the left kidney.. There is a small hiatal hernia. Normal small intestine. There are scattered colonic diverticula consistent with diverticulosis. The patient is status post appendectomy. There is scattered atherosclerotic calcification of the abdominal aorta, without a demonstrated aneurysm. Normal inferior vena cava. Normal retroperitoneum. Normal urinary bladder. Normal abdominal wall. Normal osseous structures. CT/CT Abd/Pelvis W/WO Contrast IMPRESSION: Stable fat-containing nodular density in the left kidney as described corresponding to the sonographic findings. This most likely represents angiomyolipoma. Fatty infiltration of the liver. Electronically Signed: Steve Land MD at 9:09 EDT ,
[2023-10-15 08:24] LABS: CREATININE FINGERSTICK < 1.0 mg/dL (0.55-1.02); EGFR FINGERSTICK > 60.0000 mL/min (>60)
== END | disposition home or self-care (01) ==
LOC: CT 07:56
PROVIDERS: Referring Provider Urology; Visit Provider Urology
DX: D49.511 Neoplasm of unspecified behavior of right kidney (principal)
CPT/HCPCS: 74178; Q9967

== ENCOUNTER → 2024-09-20 | Outpatient (CLI) | payer OTHER, SELFPAY ==
--- NOTE | 2024-09-20 12:30 | US_ITS ---
PROCEDURE: KIDNEY AND BLADDER 09/20/2024 REASON FOR EXAM: RENAL MASS TECHNIQUE: Bilateral renal ultrasound. COMPARISON: Comparison is made with prior sonogram dated September 23, [address] scan dated October 15, 2023. FINDINGS: RIGHT Kidney Size: 10.8 cm x 5.2 cm x 6.1 cm Volume: 177.6 mL Cortical Thickness (if discernible): 1.4 (>6mm is normal) Once again, there are 2 subcentimeter angiomyolipomas. These are unchanged. The larger measures 8 mm x 8 mm x 9 mm. LEFT Kidney Size: 10.6 cm x 4.2 cm x 4.9 cm Volume: 113.6 mL Cortical Thickness (if discernible): 1.5 (>6mm is normal) Stable 1.9 cm x 2 cm x 1.8 cm angiomyolipoma. Stable 1.4 cm x 1.5 cm 1.2 cm renal cyst. The urinary bladder is unremarkable. US/Kidney and Bladder IMPRESSION: Stable examination with bilateral angiomyolipomas and left renal cyst. Reading Location: [id number]
== END | disposition home or self-care (01) ==
LOC: OPUS 12:27
PROVIDERS: Referring Provider Urology; Visit Provider Urology
DX: D49.511 Neoplasm of unspecified behavior of right kidney (principal)
CPT/HCPCS: 76770

== ENCOUNTER 2024-12-01 15:36 | Emergency (ER) | payer OTHER, SELFPAY ==
[2024-12-01 15:37] VITALS: BP 152/64; PULSE 67; RESP 18; TEMP 37; O2SAT 98; BMI 26.5
--- NOTE | 2024-12-01 16:06 | EKG12_ITS ---
Test Reason : Blood Pressure : */* mmHG Vent. Rate : 69 BPM Atrial Rate : 69 BPM P-R Int : 172 ms QRS Dur : 86 ms QT Int : 400 ms P-R-T Axes : 38 -10 9 degrees QTcB Int : 428 ms Sinus rhythm with marked sinus arrhythmia Minimal voltage criteria for LVH, may be normal variant ( R in aVL ) Nonspecific ST abnormality Abnormal ECG Confirmed by RENZO FRANCISCO, BRODERICK ([id number]), features editor REX LOPEZ ([id number]) on 12/05/2024 9:40:51 AM Referred By: Mainor Portillo Confirmed By: BRODERICK MULLER MD
--- NOTE | 2024-12-01 16:07 | ED.VIS.BACK ---
HPI History of Present Illness Chief Complaint: Back Narrative Narrative: 64-year-old female past medical history of hypertension presents with her daughter because of thoracic back pain that she has had between her shoulder blades since Thursday, 4 days ago. Today, she began having anterior chest pain and heaviness. She denies any fevers or chills, no cough, no nausea or vomiting, no diaphoresis. She also had left arm pain. It is described more as dull and achy. Her back pain is relatively constant, and her chest pain that began today at around 1030 approximately 5 hours ago is relatively constant as well. No recent falls or trauma. 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 Skin cancer, basal cell Heart murmur UTI (urinary tract infection) COVID-19 Home Medications ?Medication ?Instructions ?Recorded ?Last Taken ?Type thyroid (pork) 30 mg tablet 30 mg PO DAILY 03/14/16 12/01/24 History ([place] Thyroid) lisinopril 20 mg tablet 20 mg PO DAILY #90 tabs 04/28/24 12/01/24 Rx hydrochlorothiazide 25 mg tablet 25 mg PO DAILY #90 tabs 09/29/24 12/01/24 Rx Allergy/AdvReac Type Severity Reaction Status Date / Time NSAIDS (Non-Steroidal AdvReac Other Verified 12/01/24 15:38 Anti-Inflamma Family History Mother Angina at rest Hypertension Multiple lipomas Atrial fibrillation Father Angina at rest Diabetes Heart disease CABG CVA (cerebral vascular accident) Lymphoma CAD (coronary artery disease) 14 stents between heart, carotids, kidney Atrial fibrillation Brother Diabetes Heart disease Sister Lymphoma Uterine cancer Grandmother Cervical cancer Surgical History Status post excision of lipoma History of carpal tunnel release History of appendectomy Carpal tunnel syndrome Social History Smoking Status: Never smoker alcohol intake: never substance use type: does not use caffeine: Yes (Rarely) additional social history: Does Take Aspirin As Needed Does Take Ibuprofen As Needed ROS ROS ED ROS Narrative Review of systems positive for thoracic back pain worse with some movements, and touching a small area. No fevers or chills, no nausea or vomiting. Positive chest achiness midsternal, pinpoint. No diaphoresis. Reported left arm heaviness as well. EXAM Physical Exam Narrative Exam Narrative: Afebrile. Vital signs noted. Nontoxic-appearing. Cardiovascular examination reveals a regular rate and rhythm. Lungs are clear to auscultation bilaterally. Abdomen is soft and nontender. Positive tenderness to palpation mid thoracic back between scapula. No step-off. Positive tenderness to palpation midsternal area between breasts, no crepitance. Full range of motion bilateral upper extremities. Ambulatory in ED. Neurological examination nonfocal and nonlateralizing. Const Vital Signs: 12/01/24 15:37 12/01/24 16:30 Temperature 98.6 F Temperature Source Oral Pulse Rate 67 Respiratory Rate 18 Blood Pressure 152/64 H Blood Pressure Mean 93 Pulse Ox 98 Oxygen Delivery Method Room Air Room Air MDM MDM MDM Narrative Medical decision making narrative: The differential diagnosis includes but not limited to thoracic compression fracture versus musculoskeletal back pain/thoracic strain versus ACS/unstable angina. History and physical does not necessarily support ACS. Comprehensive workup was pursued. She has not had a fall so I have lower suspicion for thoracic compression fracture. X-rays will be obtained of the thoracic spine to rule out fracture. EKG was obtained and interpreted by myself independently as normal sinus rhythm with sinus arrhythmia at [address] changes. No STEMI. Chest x-ray in 1 view interpreted by myself independently shows no evidence of an acute process, no pneumonia or pneumothorax. I reviewed the radiology report which confirms my independent interpretation. On my individual interpretation of the thoracic spine x-rays, there is no evidence of compression fracture. I reviewed the radiology report as well, which once again confirms my independent interpretation. In review of her laboratory work she has normal white count of 6.1, hemoglobin 13.2 with hematocrit normal at 38.0, platelet count 211. BMP is grossly unremarkable with normal sodium and potassium. Glucose 91. Initial high-sensitivity troponin is less than 6. Upon repeat examination, she feels that her chest tightness and dull achiness could have been from either the heat or inhalation of certain fumes. I did offer her analgesics for her back pain, but she declined. She has an intolerance to NSAIDs, and she was also offered Tylenol or something stronger/narcotic but she declined. As long as her second high-sensitivity troponin at 2 hours is within acceptable delta, I do feel that she can be discharged to follow-up with her primary care provider. Her second high-sensitivity troponin is 7 for an acceptable delta troponin. I feel she has been ruled out for ACS with biomarkers. Upon repeat examination, she remains resting comfortably on the cot. She is declining any prescriptions for analgesia. Return instructions were reviewed. Disposition is discharged home in stable condition. History & Record Review Discussion w/independent historian: Patient Additional record(s) reviewed:: Prior ED visit (Last visit 2021) Lab Data Attestation: I reviewed the patient's lab results. Labs: Laboratory Results - last 24 hr 12/01/24 12/01/24 16:26 18:14 WBC 6.1 RBC 4.30 Hgb 13.2 Hct 38.0 MCV 88.4 MCH 30.7 MCHC 34.7 RDW Std Deviation 40.6 RDW Coeff of Lynn 12.5 Plt Count 211 MPV 10.2 Immature Gran % (Auto) 0.200 Neut % (Auto) 57.9 Lymph % (Auto) 31.0 [place] % (Auto) 9.5 Eos % (Auto) 0.7 Baso % (Auto) 0.7 Absolute Neuts (auto) 3.5 Absolute Lymphs (auto) 1.89 Nucleated RBC % 0 Sodium 138 Potassium 3.6 Chloride 102 Carbon Dioxide 23.9 Anion Gap 13 BUN 16 Creatinine 0.95 Estim Creat Clear Calc 63.96 Est GFR (MDRD) Non-Af 67 BUN/Creatinine Ratio 17.1 Glucose 91 Calcium 9.4 Troponin T High Sens < 6 Troponin T Hi Sens 2 Hr 7 Radiography Chest X-Ray - ED: 1 View, Read by ED Physician, Read by Radiologist and No Acute Disease X-Ray: T-Spine, Read by ED Physician, Read by Radiologist, No Fracture and Normal Bony Alignment Diagnostic Testing: Clinical Impression(s) from Imaging Studies Chest X-Ray 12/01/24 16:37 IMPRESSION: No Acute Findings. Reading Location: [facility] Thoracic Spine X-Ray 12/01/24 16:37 IMPRESSION: No acute osseous abnormalities. Reading Location: [facility] Discharge Plan Triage Chief Complaint: Back ED Provider: Mainor Portillo Dx/Rx/DC Orders Clinical Impression: Thoracic back pain, Chest pain Instructions: ED Back Pain (Acute or Chronic), ED Chest Pain, Uncertain Cause, ED Pain, Acute, Uncertain Cause Prescriptions: No Action lisinopril 20 mg tablet 20 mg PO DAILY Qty: 90 3RF thyroid (pork) [[place] Thyroid] 30 MG tablet 30 mg PO DAILY hydrochlorothiazide 25 mg tablet 25 mg PO DAILY Qty: 90 3RF Primary Care Provider: Mena Junior Referrals: Mena Juinor [Primary Care Provider] - 3-5 Days if not improving Activity Restrictions/Additional Instructions: Return with increasing pain, new or worsening symptoms. Follow-up with your primary care provider. Print Language: Ecuadorean Disposition Disposition: Home, Self Care
[2024-12-01 16:35] LABS: Hematocrit 38.0 % (37-47); Hemoglobin 13.2 g/dL (12.0-15.0); Immature Granulocytes Count 0.010 X10^3/uL (0.0-0.0); Mean Corp Hgb Conc 34.7 g/dL (32-36); Mean Corpuscular Volume 88.4 fL (81-99); Mean Platelet Vol. 10.2 fl (6.2-12.0); NRBC Flagged by Analyzer 0 % (0-5); Platelet Count 211 K/mm3 (150-450); RBC Distribution Width CV 12.5 % (11.6-14.6); RBC Distribution Width SD 40.6 fl (35.1-43.9); Red Blood Count 4.30 M/mm3 (4.2-5.4); White Blood Count 6.1 K/mm3 (4.4-11.0)
--- NOTE | 2024-12-01 16:37 | RAD_ITS ---
PROCEDURE: THORACIC SPINE 3 VIEWS 12/01/2024 REASON FOR EXAM: PAIN TECHNIQUE: THORACIC SPINE 3 VIEWS COMPARISON: None. FINDINGS: No evidence of acute fracture or dislocation. Mild discogenic degenerative changes. S shaped scoliosis. RAD/Thoracic Spine 3 Views IMPRESSION: No acute osseous abnormalities. Reading Location: [id number]
--- NOTE | 2024-12-01 16:37 | RAD_ITS ---
PROCEDURE: CHEST 1 VIEW (PORTABLE) 12/01/2024 REASON FOR EXAM: CHEST PAIN TECHNIQUE: Frontal view of the chest. COMPARISON: None. FINDINGS: The heart is normal in size. The lungs are clear. No pleural effusion or pneumothorax. No acute osseous abnormalities. RAD/Chest 1 View (Portable) IMPRESSION: No Acute Findings. Reading Location: [id number]
[2024-12-01 17:16] LABS: Anion Gap 13 (5-15); BUN 16 mg/dL (4-19); BUN/Creat Ratio 17.1 RATIO (10-20); Calcium,Total 9.4 mg/dL (7.6-11.0); Carbon Dioxide 23.9 mmol/L (21.0-32.0); Chloride 102 mmol/L (98-108); Estimated Creatinine Clearance 63.96 ml/min (50-250); Glucose 91 mg/dL (70-99); Potassium 3.6 mmol/L (3.3-5.1); Troponin T High Sensitivity < 6 ng/L (<=14)
[2024-12-01 18:40] LABS: Troponin T High Sens 2 HR 7 ng/L (<=14)
[2024-12-01 18:55] VITALS: BP 152/64; PULSE 67; RESP 18; TEMP 37; O2SAT 98
== END 2024-12-01 18:55 | disposition home or self-care (01) ==
PROVIDERS: Emergency Provider Emergency Medicine; Referring Provider Emergency Medicine; Visit Provider Emergency Medicine
DX: M54.6 Pain in thoracic spine (principal); I10 Essential (primary) hypertension; R07.9 Chest pain, unspecified; Z85.828 Personal history of other malignant neoplasm of skin; Z79.899 Other long term (current) drug therapy; Z90.49 Acquired absence of other specified parts of digestive tract
CPT/HCPCS: 71045; 72072; 80048; 84484; 85025; 93005; 99284; A4216

== ENCOUNTER → 2025-02-10 | Outpatient (CLI) | payer OTHER, SELFPAY ==
--- OUTSIDE RECORDS SUMMARY | 2025-02-10 12:35 | XMS RPT_ITS | CCD ---
Author Organization [facility] CliniSyaz Care Team Providers Care Mechanism Inspector Name Role Phone DONOVAN POND-JEFF, CARMEN Primary Care Physician ( [phone] Donovan PUBLIC RELATIONS COORDINATOR, PUBLIC RELATIONS COORDINATOR-C Carmen Primary Care Provider [phone] [phone] Donovan PUBLIC RELATIONS COORDINATOR, PUBLIC RELATIONS COORDINATOR-C Carmen Referring Provider Dr. Mynor Le Attending Provider [phone] Dr. Mynor Le Other Provider [phone] REBA POND-JEFF, MENA A Primary Care Physi [facility] Donovan PUBLIC RELATIONS COORDINATOR, PUBLIC RELATIONS COORDINATOR-C Carmen Primary Care Provider 1(08 [phone] Donovan PUBLIC RELATIONS COORDINATOR, PUBLIC RELATIONS COORDINATOR-C Carmen Referring Provider Gerda PUBLIC RELATIONS COORDINATOR, PUBLIC RELATIONS COORDINATOR-C Gloria Ramon Attending Provider [phone] Mari Fox Attending Provider Unavailable Dr. Mahesh Hoyt Attending Provider [phone] Donovan PUBLIC RELATIONS COORDINATOR, PUBLIC RELATIONS COORDINATOR-C Carmen Referring Provider Emile PUBLIC RELATIONS COORDINATOR, PUBLIC RELATIONS COORDINATOR-C Sakina Attending Provider Mena Britton Primary Care Provider Unavail able Mena Britton Referring Provider UnavailDr. Annelise Linder Attending Provider JOYA RAMOS Attending Ana BRITTON APRN-JEFF, MENA A Primary Care Un available RONIT SAHUN-NUTRITION WORKEROLIVE Attending Unavailab jannet BRITTON APRN-JEFF, MENA Troncoso Primary Care Un available REBA SAHUN-NUTRITION WORKER, MENA Troncoso Attending Un available REBA POND-NUTRITION WORKER, MENA A Primary Care Un available REBA SAHUN-JEFF, MENA A Attending Un available REBA COMMUNITY SERVICE PATROL OFFICER-NUTRITION WORKER, MENA A Primary Care Un available REBA COMMUNITY SERVICE PATROL OFFICER-NUTRITION WORKER, MENA A Attending Un available REBA COMMUNITY SERVICE PATROL OFFICER-NUTRITION WORKER, MENA A Primary Care Un available Reba COMMUNITY SERVICE PATROL OFFICER.NUTRITION WORKER, Mena Primary Care Provide r Unavailable JOEYNIRMAL OBRIENEL Bin Attending Unavailable AMARILYS DEMARCO Referring Unavailable HANNAHAMARILYS Attending Unavailable REBA COMMUNITY SERVICE PATROL OFFICER-NUTRITION WORKER, MENA A Attending Un available REBA COMMUNITY SERVICE PATROL OFFICER-NUTRITION WORKER, MENA A Primary Care Un available Reba, Mena Primary Care Provider Unavail able Doyle FRANCISCO, Dr. Gil Attending Provider Doyle FRANCISCO, Dr. Gil Referring Provider [phone] Bandar FRANCISCO, Mainor Referring Provider [phone] Mainor Portillo MD Emergency Provider Mainor Portillo Attending Unavailable Mainor Portillo Referring Unavailable Reba, Mena Primary Care Unavailable Reba PUBLIC RELATIONS COORDINATOR, Mena Attending Unavailabl e Reba PUBLIC RELATIONS COORDINATOR, Mena Referring Unavailabl e Reba, Mena Primary Care Unavailable Reba PUBLIC RELATIONS COORDINATOR, Mena Attending Unavailabl e Reba, Mena Primary Care Unavailable Mahesh Hoyt Attending Unavailable Reba, Mena Primary Care Unavailable Reba, Mena Referring Unavailable Thelma Kwon Attending Unavailable Thelma Kwon Referring Unavailable Reba, Mena Primary Care Unavailable Allergies Allergy Classification Reported Allergen(s) Allergy Type Date of Onset Reaction(s) Facility (11 sources) Ibuprofen; Translations: [ibuprofen] Drug Allergy Reflux gastritis (disorder) [facility] (11 sources) nonsteroidal antiinflammatory agent; Translations: [nonsteroidal anti-inflammatory agents] Drug allergy [facility] (5 sources) Nonsteroidal Anti-inflammatory Compounds Propensity to adverse reactions 01-19-20 22 Other [facility] Comment on above: reflux (2 sources) Non-steroidal anti-inflammatory agent; Translations: [NSAIDS (NON-STEROIDAL ANTI-INFLAMMATORY DRUG)] Drug Intolerance 03-25-20 19 GI Upset [facility] (1 source) NSAIDs Drug allergy (disorder) 12-02-19 [facility] Repository Medications Current Medications Medication Drug Class(es) Dates Sig (Normalized) Sig (Original) Ascorbic Acid (3 sources) Vitamin C Start: 2 vitamin c vitamin c, 0 Refill(s), 76.7 Start Date: 01/08/22 Status: Ordered Aspirin (2 sources) Platelet Aggregation Inhibitor, Nonsteroidal Anti-inflammator y Drug Start: 1 aspirin 81 mg oral delayed release tablet Dose : 81 mg = 1 tab(s), Oral, Daily, 0 Refill(s) Start Date: 02/21/21 Status: Ordered beet root (3 sources) Start: 2 beet root beet root, 0 Refill(s), 76.7 Start Date: 01/08/22 Status: Ordered Fish Oils (3 sources) Start: 2 take 1 mg by mouth once daily Manvel-3 Fish Oil mg =, Oral, qDay, 0 Refill(s) Start Date: 01/08/22 Status: Ordered hydroCHLOROthiazide 25 mg oral tablet (20 sources) Thiazide Diuretic Start: 3 End: 3 take 6.25 mg by mouth once daily Hydrochlorothiazide 12.5 mg tablet Discontinued 6.25 mg PO DAILY September 05, 2022 12:00am September 05, 2022 2:12pm Start: 09-05-2022 End: 09-05-2022 take 6.25 mg by mouth once daily Hydrochlorothiazide Discontinued 6.25 MG PO DAILY September 04, 2022 11:00pm September 05, 2022 1:12pm Start: 09-02-2022 End: 09-05-2022 Hydrochlorothiazide 25 mg ta blet Discontinued 12.5 mg PO DAILY September 02, 2022 3:24pm September 05, 2022 1:11pm Start: 09-02-2022 End: 09-05-2022 take 12.5 mg by mouth once daily Hydrochlorothiazide Discontinued 12.5 MG PO DAILY September 02, 2022 2:24pm September 05, 2022 12:11pm Start: 06-18-2022 End: 06-13-2023 take 0.5 tablet by mouth once daily hydroCHLOROthiazide 12.5 mg oral tablet 0.5, Oral, qDay, # 90 tab(s), 3 Refill(s), Pharmacy: [id number], 170.2, cm, 06/18/22 8:36:00 EST, Height, kg, 06/18/22 8:36:00 EST, Dosing Weight Start Date: 06/18/22 Stop Date: 06/13/23 Status: Ordered Start: 03-14-2021 End: 03-09-2022 take 0.5 tablet by mouth once daily hydroCHLOROthiazide 12.5 mg oral tablet 0.5, Oral, qDay, # 90 tab(s), 3 Refill(s), Pharmacy: [id number], 169.5, cm, 03/14/21 10:40:00 EDT, Height, kg, 03/14/21 10:40:00 EDT, Dosing Weight Start Date: 03/14/21 Stop Date: 03/09/22 Status: Ordered Start: 01-26-2017 End: 10-14-2025 hydroCHLOROthiazide 25 mg or al tablet Dose : 25 mg = 1 tab(s), Oral, qDay, TAKE 1 TABLET BY MOUTH ONCE DAILY, # 90 tab(s), 3 Refill(s), Pharmacy: [id number], 170, cm, 10/19/24 8:59:00 EDT, Height, kg, 10/19/24 8:59:00 EDT, Dosing Weight Start Date: 10/19/24 Stop Date: 10/14/25 Status: Ordered Quantity: 90.0 Unit: tab(s) Repeat number: 4 Start: 03-14-2016 End: 09-02-2022 take 6.25 mg by mouth once daily Hydrochlorothiazide 25 MG tablet Discontinued 6.25 mg PO DAILY March 14, 2016 12:00am September 02, 2022 3:28pm Start: 03-14-2016 End: 09-02-2022 take 6.25 mg by mouth once daily Hydrochlorothiazide Discontinued 6.25 MG PO DAILY March 13, 2016 11:00pm September 02, 2022 2:28pm Start: 03-14-2016 take 12.5 mg by mout h once daily Hydrochlorothiazide Active 12.5 MG PO DAILY March 14, 2016 12:00am hydroCHLOROthiazide 12.5 mg / lisinopril 20 mg oral tablet (1 source) Thiazide Diuretic, Angiotensin Converting Enzyme Inhibitor Start: 01-08-2022 End: 02-07-2022 take 1 tablet by mouth once daily hydrochlorothiazide-lisinopril 12.5 mg-20 mg oral tablet Dose = 1 tab(s), Oral, Daily, # 30 tab(s), 0 Refill(s), Pharmacy: [id number], 170, cm, 01/08/22 7:59:00 EDT, Height Start Date: 01/08/22 Stop Date: 02/07/22 Status: Ordered Inulin (1 source) take 4 capsules by mouth once daily FIBER CHOICE ORAL Take 4 capsules by mouth once daily. Active lisinopril 20 mg oral tablet (20 sources) Angiotensin Converting Enzyme Inhibitor Start: 04-28-2024 End: 10-14-2025 lisinopril 20 mg oral tablet Dose : 20 mg = 1 tab(s), Oral, qDay, TAKE 1 TABLET BY MOUTH ONCE DAILY, # 90 tab(s), 3 Refill(s), Pharmacy: [id number], 170, cm, 10/19/24 8:59:00 EDT, Height, kg, 10/19/24 8:59:00 EDT, Dosing Weight Start Date: 10/19/24 Stop Date: 10/14/25 Status: Ordered Quantity: 90.0 Unit: tab(s) Repeat number: 4 Start: 04-28-2024 End: 04-28-2024 Lisinopril 40 mg tablet Disc ontinued 20 mg PO DAILY April 28, 2024 9:59am April 28, 2024 10:20am Start: 09-05-2022 End: 04-28-2024 take 1 tablet by mouth once daily Lisinopril 40 mg tablet Discontinued 40 mg PO DAILY 90 3 October 01, 2023 8:35am April 28, 2024 10:00am Start: 09-05-2022 End: 09-05-2022 take 1 tablet by mouth once daily in the evening Lisinopril 20 mg tablet Discontinued 20 mg PO EVERY EVENING September 05, 2022 12:00am September 05, 2022 2:12pm Start: 09-02-2022 End: 09-05-2022 take 1 tablet by mouth once daily in the morning Lisinopril 30 mg tablet Discontinued 30 mg PO EVERY MORNING September 05, 2022 1:08pm September 05, 2022 2:13pm Start: 06-18-2022 lisinopril 20 mg oral tablet Dose : 20 mg = 1 tab(s), Oral, BID, # 180 tab(s), 3 Refill(s), Pharmacy: [id number], 170.2, cm, 06/18/22 8:36:00 EST, Height, kg, 06/18/22 8:36:00 EST, Dosing Weight Start Date: 06/18/22 Status: Ordered Start: 03-14-2021 End: 03-09-2022 lisinopril 10 mg oral tablet Dose : 10 mg = 1 tab(s), Oral, qDay, # 90 tab(s), 3 Refill(s), Pharmacy: [id number], 169.5, cm, 03/14/21 10:40:00 EDT, Height, kg, 03/14/21 10:40:00 EDT, Dosing Weight Start Date: 03/14/21 Stop Date: 03/09/22 Status: Ordered Start: 03-14-2016 End: 09-02-2022 take 1 tablet by mouth twice daily Lisinopril 20 MG tablet Discontinued 20 mg PO TWICE A DAY March 14, 2016 12:00am September 02, 2022 3:23pm multivitamin tablet (1 source) take 1 tablet by mouth once daily multivitamin tablet Take 1 tablet by mouth once daily. Active nitrofurantoin, macrocrystals 25 mg / nitrofurantoin, monohydrate 75 mg oral capsule (1 source) Nitrofuran Antibacterial Start: 06-18-19 End: 06-23-19 nitrofurantoin macrocrystals-monohyd rate 100 mg oral capsule Dose : 100 mg = 1 cap(s), Oral, BID, Take with food, X 5 day(s), # 10 cap(s), 0 Refill(s), 06/23/22 9:04:00 EST, Pharmacy: [facility]/pharmacy #[id number], Dysuria, 170.2, cm, 06/18/22 8:36:00 EST, Height, 76.1 Start Date: 06/18/22 Stop Date: 06/23/22 Status: Ordered nutritional supplement (5 sources) Start: 12-25-19 nutritional supplement fiber, 0 Refill(s) Start Date: 12/24/22 Status: Ordered Repeat number: 1 Start: 12-24-2022 nutritional best pplement fiber, 0 Refill(s) Start Date: 12/24/22 Status: Ordered sulfamethoxazole 800 mg / trimethoprim 160 mg oral tablet (3 sources) Dihydrofolate Reductase Inhibitor Antibacterial, Sulfonamide Antimicrobial Start: 11-26-2023 End: 12-01-2023 take 1 tablet by mouth twice daily Bactrim DS 800 mg-160 mg oral tablet Dose = 1 tab(s), Oral, BID, X 5 day(s), # 10 tab(s), 0 Refill(s), Pharmacy: [facility]/pharmacy #[id number], 170, cm, 11/26/23 10:59:00 EDT, Height, 77.1, kg, 11/26/23 10:59:00 EDT, Dosing Weight Start Date: 11/26/23 Stop Date: 12/01/23 Status: Ordered Start: 07-26-2022 End: 07-31-2022 take 1 tablet by mouth every twelve hours sulfamethoxazole-trimethoprim 800 mg-160 mg oral tablet Dose = 1 tab(s), Oral, q12h, X 5 day(s), # 10 tab(s), 0 Refill(s), 76.7 Start Date: 07/26/22 Stop Date: 07/31/22 Status: Ordered Start: 10-17-2021 End: 10-24-2021 take 1 tablet by mouth every twelve hours Bactrim DS 800 mg-160 mg oral tablet Dos e = 1 tab(s), Oral, q12h, X 7 day(s), # 14 tab(s), 0 Refill(s), Pharmacy: [facility]/pharmacy #[id number], 168.91, cm, 10/17/21 10:13:00 EDT, Height, 76.7 Start Date: 10/17/21 Stop Date: 10/24/21 Status: Ordered Thyroid (Pork) ([place] Thyroid) 30 MG tablet (1 source) Start: 03-14-2016 take 1 tablet by mouth once daily Thyroid (Pork) ([place] Thyroid) 30 MG tablet Active 30 mg PO DAILY March 14, 2016 12:00am thyroid ([facility]) 30 mg oral tablet (16 sources) Start: 10-19-2024 End: 01-17-2025 PUBLIC RELATIONS COORDINATOR Thyroid 30 mg oral tablet Dose : 30 mg = 1 tab(s), Oral, qDay, # 90 tab(s), 0 Refill(s), Pharmacy: [id number], Hypothyroid, 170, cm, 10/19/24 8:59:00 EDT, Height, kg, 10/19/24 8:59:00 EDT, Dosing Weight Start Date: 10/19/24 Stop Date: 01/17/25 Status: Ordered Quantity: 90.0 Unit: tab(s) Repeat number: 1 Indications: Hypothyroidism, unspecified; Start: 03-14-2016 End: 07-16-2024 PUBLIC RELATIONS COORDINATOR Thyroid 30 mg oral tablet Dose : 30 mg = 1 tab(s), Oral, qDay, # 90 tab(s), 3 Refill(s), Pharmacy: [id number], Hypothyroid, 169.5, cm, 07/22/23 9:12:00 EDT, Height, kg, 07/22/23 9:12:00 EDT, Dosing Weight Start Date: 07/22/23 Stop Date: 07/16/24 Status: Ordered Vitamin D (3 sources) Start: 01-08-2022 vitamin D senthil min D, 0 Refill(s), 76.7 Start Date: 01/08/22 Status: Ordered Vsc (1 source) Start: 04-01-2019 take 1 capsule by [facility] once daily Vsc Active 1 CAP PO DAILY April 01, 2019 1:00am Completed/Discontinued Medications Medication Drug Class(es) Dates Sig (Normalized) Sig (Original) acetaminophen 500 mg oral tablet (7 sources) Start: 09-02-2022 End: 09-05-2022 take 2 tablets by mouth three times daily as needed Acetaminophen 500 mg tablet Discontinued 1000 mg PO THREE TIMES A DAY as needed September 02, 2022 12:00am September 05, 2022 1:07pm Start: 09-02-2022 End: 09-05-2022 take 1000 mg by mouth three times daily Acetaminophen Discontinued 1000 MG PO THREE TIMES A DAY September 01, 2022 11:00pm September 05, 2022 12:07pm Start: 10-17-2021 acetaminophen 500 mg oral tablet Dose : 1,000 mg = 2 tab(s), Oral, TID, PRN pain or fever, 0 Refill(s) Start Date: 10/17/21 Status: Ordered acetaminophen 325 mg / oxyCODONE hydrochloride 5 mg oral tablet (4 sources) Opioid Agonist Start: 04-25-2022 End: 06-03-2022 take 7-10 tablets by mouth every six hours as needed for pain Oxycodone-Acetaminophen (Percocet) 5-325 mg tablet Discontinued 1 {tbl} PO EVERY 6 HOURS as needed for pain (scale score 7-10) 28 7 0 April 25, 2022 June 03, 2022 10:06am Other acute postprocedural pain Other acute postprocedural pain 28 tabs (twenty-eight) amLODIPine 10 mg oral tablet (12 sources) Dihydropyridine Calcium Channel Roopa Start: 04-28-2024 End: 04-28-2024 take 5 mg by mouth once daily Amlodipine 10 mg tablet Discontinued 5 mg PO DAILY April 28, 2024 9:59am April 28, 2024 10:20am Start: 09-05-2022 End: 04-28-2024 take 1 tablet by mouth once daily Amlodipine 10 mg tablet Discontinued 10 mg PO DAILY 90 3 October 01, 2023 8:35am April 28, 2024 10:00am cefadroxil 500 mg oral capsule (4 sources) Cephalosporin Antibacterial Start: 04-25-2022 End: 05-13-2022 take 1 capsule by mouth twice daily Cefadroxil 500 mg capsule Discontinued 500 mg PO TWICE A DAY 30 0 April 25, 2022 1:00am May 13, 2022 10:18am cholecalciferol 0.025 mg oral capsule (4 sources) Vitamin D Start: 04-18-2022 End: 02-25-2023 take 1 capsule by mouth once daily Cholecalciferol (Vitamin D3) (Vitamin D3) 25 mcg (1,000 unit) Capsule Discontinued 25 ug PO DAILY April 18, 2022 1:00am February 25, 2023 8:31am collagen peptides Powder (3 sources) Start: 05-20-2022 End: 09-02-2022 collagen peptides Powder Discontinued PO DAILY May 20, 2022 12:00am September 02, 2022 2:27pm 1-2 teaspoons daily in liquid drink Start: 05-20-2022 End: 09-02-2022 collagen peptides Powder Dis continued PO DAILY May 20, 2022 1:00am September 02, 2022 3:27pm 1-2 teaspoons daily in liquid drink famotidine 20 mg oral tablet (9 sources) Histamine-2 Receptor Antagonist Start: 02-21-2021 End: 09-02-2022 take 1 tablet by mouth once daily as needed for gastroesophageal reflux disease Famotidine (Pepcid) 20 mg tablet Discontinued 20 mg PO DAILY as needed for Heartburn March 05, 2022 10:56am September 02, 2022 3:27pm Fiber (4 sources) Start: 04-18-2022 End: 09-02-2022 take 1 capsule by mouth once daily Fiber Capsule Discontinued 6 NMA PO DAILY April 18, 2022 1:00am September 02, 2022 3:26pm Start: 04-18-2022 End: 09-02-2022 take 6 capsules by mouth once daily Fiber Discontinued 6 CAP PO DAILY April 18, 2022 12:00am September 02, 2022 2:26pm Start: 04-18-2022 End: 09-02-2022 take 6 capsules by mouth once daily Fiber Discontinued 6 CAP PO DAILY April 18, 2022 1:00am September 02, 2022 3:26pm Start: 04-18-2022 take 6 capsules by m out once daily Fiber Active 6 CAP PO DAILY April 18, 2022 12:00am Garlic (7 sources) Non-Standardized Food Allergenic Extract Start: 04-18-2022 End: 02-25-2023 take 1 capsule by mouth once daily Garlic 1,000 mg Capsule Discontinued 1000 mg PO DAILY April 18, 2022 1:00am February 25, 2023 8:31am Start: 04-18-2022 End: 02-25-2023 take 1000 mg by mouth once daily Garlic Discontinued 1000 MG PO DAILY April 18, 2022 12:00am February 25, 2023 7:31am Start: 04-18-2022 take 1000 mg by mout h once daily Garlic Active 1000 MG PO DAILY April 18, 2022 1:00am Start: 04-18-2022 take 1000 mg by mout h once daily Garlic Active 1000 MG PO DAILY April 18, 2022 12:00am Start: 01-08-2022 garlic garlic, 0 Refill(s), 76.7 Start Date: 01/08/22 Status: Ordered guaiFENesin (5 sources) Start: 02-21-2021 End: 03-05-2022 Mucinex Discontinued February 21, 2021 12:00am March 05, 2022 10:56am Start: 02-21-2021 End: 03-05-2022 Mucinex Discontinued February 20, 2021 11:00pm March 05, 2022 9:56am Start: 02-21-2021 Mucinex Active February 21, 2021 12:00am L.Acidoph,Saliva-B.Bif-S.The rm (Acidophilus Probiotic Blend) 175 mg capsule (4 sources) Start: 04-25-2022 End: 06-03-2022 take 1 capsule by mouth once daily L.Acidoph,Saliva-B.Bif-S.Therm (Acidophilus Probiotic Blend) 175 mg capsule Discontinued 1 NMA PO DAILY April 25, 2022 1:00am June 03, 2022 10:06am Start: 04-25-2022 End: 06-03-2022 take 1 capsule by mouth once daily L.Acidoph,Saliva-B.Bif-S.Therm (Acidophi jona Probiotic Blend) 175 mg capsule Discontinued 1 CAP PO DAILY April 25, 2022 12:00am June 03, 2022 9:06am Start: 04-25-2022 End: 06-03-2022 take 1 capsule by mouth once daily L.Acidoph,Saliva-B.Bif-S.Therm (Acidophi jona Probiotic Blend) 175 mg capsule Discontinued 1 CAP PO DAILY April 25, 2022 1:00am June 03, 2022 10:06am Start: 04-25-2022 take 1 capsule by mouth once daily L.Acidoph,Saliva-B.Bif-S.Therm (Acidophi jona Probiotic Blend) 175 mg capsule Active 1 CAP PO DAILY April 25, 2022 12:00am 24 hr metoprolol succinate 50 mg extended release oral tablet (16 sources) beta-Adrenergic Roopa Start: 04-28-2024 End: 04-28-2024 take 2 tablets by mouth once daily Metoprolol Succinate (Toprol Xl) 50 mg tablet extended release 24 hr Discontinued 25 mg PO DAILY April 28, 2024 10:00am April 28, 2024 10:20am Start: 12-09-2022 Metoprolol Suc cinate ER 50 mg oral TABLET extended release Dose : 50 mg = 1 tab(s), Oral, qDay, # 30 tab(s), 0 Refill(s) Start Date: 12/09/22 Status: Ordered Start: 11-26-2022 End: 04-28-2024 take 1 tablet by mouth once daily Metoprolol Succinate (Toprol Xl) 50 mg tablet extended release 24 hr Discontinued 50 mg PO DAILY 90 3 September 28, 2023 10:34am April 28, 2024 10:00am Start: 11-25-2022 End: 11-26-2022 take 2 tablets by mouth once daily Metoprolol Succinate (Toprol Xl) 50 mg tablet extended release 24 hr Discontinued 25 mg PO DAILY 60 2 November 25, 2022 12:28pm November 26, 2022 1:04pm Start: 09-17-2022 End: 11-25-2022 take 1 tablet by mouth once daily Metoprolol Succinate (Toprol Xl) 50 mg tablet extended release 24 hr Discontinued 50 mg PO DAILY 60 2 October 14, 2022 10:27am November 25, 2022 12:28pm Multivitamin Capsule (1 source) Start: 04-18-2022 End: 02-25-2023 Multivitamin Capsule Discontinued 1 NMA PO DAILY April 18, 2022 1:00am February 25, 2023 8:46am Multivitamin preparation (9 sources) Start: 04-18-2022 End: 02-25-2023 take 1 capsule by mouth once daily Multivitamin Discontinued 1 CAP PO DAILY April 18, 2022 12:00am February 25, 2023 7:46am Start: 04-18-2022 take 1 capsule by mo ut once daily Multivitamin Active 1 CAP PO DAILY April 18, 2022 1:00am Start: 04-18-2022 take 1 capsule by mo uth once daily Multivitamin Active 1 CAP PO DAILY April 18, 2022 12:00am Start: 09-18-2017 [facility] Mult[facility]itamin Dose = 1 tab(s), Oral, Daily, 0 Refill(s) Start Date: 09/18/17 Status: Ordered Multivitamin With Minerals ( Bill Multiple/Chelated Mineral) Tablet (4 sources) Start: 04-18-2022 End: 09-02-2022 Multivitamin With Minerals (Bill Multiple/Chelated Mineral) Tablet Discontinued 3 {tbl} PO TWICE A DAY April 18, 2022 1:00am September 02, 2022 3:27pm Start: 04-18-2022 End: 09-02-2022 take 3 tablets by mouth twice daily Multivitamin With Minerals (Bill Multiple/Chelated Mineral) Tablet Discontinued 3 TABLET PO TWICE A DAY April 18, 2022 12:00am September 02, 2022 2:27pm Start: 04-18-2022 End: 09-02-2022 take 3 tablets by mouth twice daily Multivitamin With Minerals (Bill Multiple/Chelated Mineral) Tablet Discontinued 3 TABLET PO TWICE A DAY April 18, 2022 1:00am September 02, 2022 3:27pm Start: 04-18-2022 take 3 tablets by mo [facility] twice daily Multivitamin With Minerals (Bill Multiple/Chelated Mineral) Tablet Active 3 TABLET PO TWICE A DAY April 18, 2022 12:00am Nervous system supplement (3 sources) Start: 09-05-2022 End: 02-25-2023 Nervous system supplement Discontinued PO September 05, 2022 12:00am February 25, 2023 8:46am Start: 09-05-2022 End: 02-25-2023 Nervous system supplement Di scontinued PO September 04, 2022 11:00pm February 25, 2023 7:46am Start: 09-05-2022 Nervous system supplement Active PO September 05, 2022 12:00am Manvel 3 (5 sources) Start: 02-21-2021 End: 09-02-2022 Manvel 3 Discontinued 1 {tbl} OTHER DAILY February 21, 2021 12:00am September 02, 2022 3:25pm Start: 02-21-2021 End: 09-02-2022 Manvel 3 Discontinued 1 TABLE T OTHER DAILY February 20, 2021 11:00pm September 02, 2022 2:25pm Start: 02-21-2021 End: 09-02-2022 Manvel 3 Discontinued 1 TABLE T OTHER DAILY February 21, 2021 12:00am September 02, 2022 3:25pm Start: 02-21-2021 Manvel 3 Active 1 TABLET OTHER DAILY February 20, 2021 11:00pm Start: 02-21-2021 Manvel 3 Active February 21, 2021 12:00am Manvel 6-Fba-Ebw-Fish Oil (Fi sh Oil) 1,200 (144-216) mg capsule (2 sources) Start: 04-07-2023 End: 04-28-2024 Manvel 2-Hbl-Ryw-Fish Oil (Fi sh Oil) 1,200 (144-216) mg capsule Discontinued NMA PO April 07, 2023 1:00am April 28, 2024 10:00am Start: 04-07-2023 Manvel 3-Dha-Ep a-Fish Oil (Fish Oil) 1,200 (144-216) mg capsule Active CAP PO April 07, 2023 12:00am Xymvh-2l-Oxq-Epa-Fish Oil (Manvel-3 Fish Oil) 300-1,000 mg capsule (3 sources) Start: 09-02-2022 End: 02-25-2023 take 3-300 capsules by mouth once daily Spzdc-2j-Wnk-Epa-Fish Oil ([place]vel-3 Fish Oil) 300-1,000 mg capsule Discontinued 1 NMA PO DAILY September 02, 2022 12:00am February 25, 2023 8:46am Start: 09-02-2022 End: 02-25-2023 Kkbah-3w-Lxj-Epa-Fish Oil (O bill-3 Fish Oil) 300-1,000 mg capsule Discontinued 1 CAP PO DAILY September 01, 2022 11:00pm February 25, 2023 7:46am Start: 09-02-2022 Rllyl-1r-Qhd-E pa-Fish Oil ([place]-3 Fish Oil) 300-1,000 mg capsule Active 1 CAP PO DAILY September 02, 2022 12:00am psyllium 520 mg oral capsule (4 sources) Start: 04-28-2024 End: 12-01-2024 Psyllium Husk (Daily Fiber) 0.52 gram capsule Discontinued 0.52 g PO daily April 28, 2024 1:00am December 01, 2024 4:33pm Start: 09-05-2022 End: 04-07-2023 Psyllium Husk (Daily Fiber) 0.4 gram capsule Discontinued 0.4 g PO DAILY September 05, 2022 12:00am April 07, 2023 2:51pm saccharomyces boulardii 250 mg oral capsule (2 sources) Start: 04-07-2023 End: 12-01-2024 take 1 capsule by mouth twice daily Saccharomyces Boulardii (Daily Probiotic (S. Boulardii)) 250 mg capsule Discontinued 250 mg PO TWICE A DAY April 07, 2023 1:00am December 01, 2024 4:32pm Vitamin D3-Vitamin K2 (Mk4) (K2 Plus D3) 1,000-100 unit-mcg tablet (2 sources) Start: 04-07-2023 End: 04-28-2024 Vitamin D3-Vitamin K2 (Mk4) (K2 Plus D3) 1,000-100 unit-mcg tablet Discontinued 1 {tbl} PO DAILY April 07, 2023 1:00am April 28, 2024 9:59am Start: 04-07-2023 take 1 tablet by nima th once daily Vitamin D3-Vitamin K2 (Mk4) (K2 Plus D3) 1,000-100 unit-mcg tablet Active 1 TABLET PO DAILY April 07, 2023 12:00am Problems Active Problems Problem Classification Problem Date Documented Da te Episodic/Chronic Endometriosis (3 sources) Uterine adenomyosis; Translations: [Adenomyosis of uterus] 09-05-2022 Chronic Esophageal disorders (20 sources) Gastroesophageal reflux disease; Translations: [Reflux] 08-26-2020 Chronic Essential hypertension (20 sources) Hypertensive disorder; Translations: [Essential (primary) hypertension] Onset: 5 09-16-2017 Chronic Genitourinary symptoms and ill-defined conditions (4 sources) Painful micturition, unspecified; Translations: [Unspecified symptoms and signs involving the genitourinary system] Onset: 3 Episodic Headache; including migraine (13 sources) Headache; Translations: [Intermittent headache] 01-08-2022 Episodic Nonspecific chest pain (1 source) Chest pain; Translations: [Chest pain, unspecified] 12-01-2024 Episodic Other aftercare (1 source) Patient encounter status; Translations: [Encounter for therapeutic drug level monitoring] 11-14-2022 Episodic Other aftercare (1 source) Long-term current use of diuretic; Translations: [Encounter for therapeutic drug level monitoring] 11-14-2022 Episodic Other and unspecified benign neoplasm (4 sources) Benign neoplasm of kidney; Translations: [Benign lipomatous neoplasm of kidney] 03-05-2022 Episodic Other circulatory disease (5 sources) Elevated blood pressure; Translations: [Elevated blood-pressure reading, without diagnosis of hypertension] 01-26-2022 Episodic Other connective tissue disease (2 sources) Swelling of left lower limb; Translations: [Other specified soft tissue disorders] 11-27-2022 Episodic Comment on above: distal aspect left t high after excision of angiolipoma and power assisted lipoplasty to feather out the edges of the lipoma site. Other connective tissue disease (1 source) Pain in left foot; Translations: [Pain in left foot] Onset: Episodic Other connective tissue disease (1 source) Metatarsalgia, unspecified foot; Translations: [Metatarsalgia, unspecified foot] Onset: Episodic Other gastrointestinal disorders (2 sources) Dysphagia; Translations: [Dysphagia, unspecified] 04-07-2023 Episodic Other gastrointestinal disorders (1 source) Dysphagia, unspecified; Translations: [Dysphagia, unspecified] 04-07-2023 Episodic Other lower respiratory disease (11 sources) Wheezing 02-21-2021 Episodic Other nervous system disorders (11 sources) Carpal tunnel syndrome 06-01-2019 Chronic Other nervous system disorders (4 sources) Acute postoperative pain; Translations: [Other acute postprocedural pain] 04-25-2022 Episodic Other nervous system disorders (4 sources) Abnormal sensation; Translations: [Other disturbances of skin sensation] 03-07-2022 Episodic Comment on above: 9 cm painful soft ti ssue mass left proximal anterior thigh Other nervous system disorders (3 sources) Other disturbances of skin sensation; Translations: [Disturbance of skin sensation] Episodic Other nervous system disorders (5 sources) Paresthesia 12-24-2022 Episodic Other nervous system disorders (2 sources) Paresthesia of left lower limb; Translations: [Paresthesia of skin] 11-27-2022 Episodic Comment on above: involving left later al thigh in area of lateral femoral cutaneous nerve Other non-epithelial cancer of skin (7 sources) History of malignant neoplasm of skin; Translations: [Personal history of other malignant neoplasm of skin] Episodic Other nutritional; endocrine; and metabolic disorders (11 sources) 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 Other skin disorders (4 sources) Mass of subcutaneous tissue of left lower limb; Translations: [Localized swelling, mass and lump, left lower limb] 03-07-2022 Episodic Comment on above: 9 cm painful soft ti ssue mass left proximal anterior thigh Other skin disorders (4 sources) Mass of subcutaneous tissue of right lower limb; Translations: [Localized swelling, mass and lump, right lower limb] 03-07-2022 Episodic Other skin disorders (4 sources) Mass of subcutaneous tissue of right upper limb; Translations: [Localized swelling, mass and lump, right upper limb] 03-07-2022 Episodic Comment on above: 2 cm soft tissue mas s right proximal volar forearm.4 cm soft tissue mass right mid volar forearm.2 cm soft tissue mass right distal volar forearm.4 cm soft tissue mass right medial antecubital area.2 cm soft tissue mass right anterior arm. Other skin disorders (4 sources) Mass of subcutaneous tissue of left upper limb; Translations: [Localized swelling, mass and lump, left upper limb] 03-07-2022 Episodic Comment on above: 2.5 cm soft tissue m ass left proximal volar forearm, ulnar.2.5 cm soft tissue mass left proximal volar forearm, radial.4 cm soft tissue mass left medial antecubital area.4 cm soft tissue mass left anterior arm. Other skin disorders (1 source) Localized swelling, mass and lump, trunk; Translations: [Localized superficial swelling, mass, or lump] Episodic Other skin disorders (3 sources) Localized swelling, mass and lump, left lower limb; Translations: [Localized superficial swelling, mass, or lump] Episodic Other skin disorders (2 sources) Localized swelling, mass and lump, left upper limb; Translations: [Localized superficial swelling, mass, or lump] Episodic Other skin disorders (2 sources) Localized swelling, mass and lump, right lower limb; Translations: [Localized superficial swelling, mass, or lump] Episodic Other skin disorders (1 source) Localized swelling, mass and lump, right upper limb; Translations: [Localized superficial swelling, mass, or lump] Episodic Other upper respiratory infections (11 sources) Maxillary sinusitis 02-25-2019 Chronic Residual codes; unclassified (5 sources) History of palpitations; Translations: [Personal history of other specified conditions] 01-26-2022 Episodic Residual codes; unclassified (5 sources) Edema of lower extremity 12-24-2022 Episodic Residual codes; unclassified (2 sources) H/O: neoplasm; Translations: [Other specified postprocedural states] 11-27-2022 Episodic Comment on above: excision 9 cm painfu l soft tissue mass left proximal anterior thigh with 9 cm layered closure - 04/25/22 Spondylosis; intervertebral disc disorders; other back problems (2 sources) Thoracic back pain; Translations: [Pain in thoracic spine] Onset: 5 12-01-2024 Episodic Thyroid disorders (20 sources) Goiter; Translations: [Hypothyroidism] Onset: 5 06-01-2019 Chronic Unclassified (18 sources) Patient encounter status 08-27-2020 Urinary tract infections (4 sources) Urinary tract infectious disease 07-26-2022 Episodic Viral infection (5 sources) Disease caused by 2019-nCoV; Translations: [COVID-19] 03-05-2022 Episodic Viral infection (11 sources) Disease caused by 2019-nCoV 02-21-2021 Past or Other Problems Problem Classification Problem Date Documented Da te Episodic/Chronic Neoplasms of unspecified nature or uncertain behavior (12 sources) Neoplasm of kidney; Translations: [Neoplasm of unspecified behavior of right kidney] Onset: 09-29-2024 09-18-2017 Episodic Other and unspecified benign neoplasm (1 source) History of polyp of colon; Translations: [History of colonic polyps] Onset: 06-04-2023 06-04-2023 Episodic Other and unspecified benign neoplasm (1 source) Personal history of colonic polyps; Translations: [History of colonic polyps] Onset: 06-04-2023 Episodic Other screening for suspected conditions (not mental disorders or infectious disease) (1 source) Encounter for screening for malignant neoplasm of colon; Translations: [Encounter for screening for malignant neoplasm of colon] Onset: 06-04-2023 Episodic Results Test Name Value Interpretation Reference Range Facility 12 Lead EKGon 12-01-2024 12 Lead EKG [facility] Cardiovascular Services [address] [place] [address] 12 Lead EKG 12/01/24 1617 MR#: [id number] Acct: [id number] Name: THELMA VINSON Rep #: [id number] : 1960 64 From: Mahesh Hoyt MD Attending Dr: Status: DEP ER Ordering Dr: Mianor Portillo MD Date: 12/01/24 Location: ED Sex: F C Admitted: Test Reason : Blood Pressure : */* mmHG Vent. Rate : 69 BPM Atrial Rate : 69 BPM P-R Int : 172 ms QRS Dur : 86 ms QT Int : 400 ms P-R-T Axes : 38 -10 9 degrees QTcB Int : 428 ms Sinus rhythm with marked sinus arrhythmia Minimal voltage criteria for LVH, may be normal variant ( R in aVL ) Nonspecific ST abnormality Abnormal ECG Confirmed by MAHESH HOYT MD ([id number]), purchasing expeditor REX LOPEZ ([id number]) on 12/05/2024 9:40:51 AM Referred By: Mainor Portillo Confirmed By: MAHESH HOYT MD 12/05/24 0940 Date Mahesh Hoyt MD CC: Dr. Mainor Portillo MD; Mena Britton Signed Normal [facility] Absolute lymphocyte countOrd ered By: Mainor Portillo on 12-01-2024 Lymphocytes Auto (Unsp spec) [#/Vol] 1.89 10*3/uL 0.83-4.51 [facility] Absolute neutrophil countOrd ered By: Mainor Portillo on 12-01-2024 Neutrophils (Bld) [#/Vol] 3.5 10*3/uL 2.0-7.7 [facility] Anion gap in Serum or Plasma Ordered By: Mainor Portillo on 12-01-2024 Anion gap [Moles/Vol] 13 mmol/L 5- [facility] Automated lymphocyte count a s percentage of total leukocytesOrdered By: Mainor Portillo on 12-01-2024 Lymphocytes/100 WBC Auto (Unsp spec) 31.0 % [facility] BUN/creatinine ratioOrdered By: Mainor Portillo on 12-01-2024 Urea nitrogen/Creatinine [Mass ratio] 17.1 mg/mg 02-27 [facility] Basic Metabolic Profile (BMP )on 12-01-2024 BUN/CRE 17.1 RATIO Normal 02-27 [facility] Comment on above: Performed By: #### L 500.2500, L100.0100, L501.4021 #### [facility] [address] [place], [address] Calcium [Mass/Vol] 9.4 mg/dL Normal 7.6-11.0 [facility] Comment on above: Performed By: #### L 500.2500, L100.0100, L501.4021 #### [facility] [address] [place], [address] Chloride [Moles/Vol] 102 mmol/L Normal 98-108 [facility] Comment on above: Performed By: #### L 500.2500, L100.0100, L501.4021 #### [facility] [address] [place], [address] CO2 [Moles/Vol] 23.9 mmol/L Normal 21.0-32.0 [facility] Comment on above: Performed By: #### L 500.2500, L100.0100, L501.4021 #### [facility] [address] [place], [address] Creatinine [Mass/Vol] 0.95 mg/dL Normal 0.70-1.20 [facility] Comment on above: Performed By: #### L 500.2500, L100.0100, L501.4021 #### [facility] [address] [place], [address] ECRCL 63.96 ml/min Normal 50-250 [facility] Comment on above: Performed By: #### L 500.2500, L100.0100, L501.4021 #### [facility] [address] [place], [address] GAP 13 Normal 5-15 [facility] Comment on above: Performed By: #### L 500.2500, L100.0100, L501.4021 #### [facility] [address] [place], [address] GFR/1.73 sq M.predicted among non-blacks MDRD (S/P/Bld) [Vol rate/Area] 67 mL/min/{1.73_m2} Normal >60 [facility] Comment on above: Result Comment: mL/m in/1.73m2 CKD-EPI Creatinine Equation (2020) Performed By: #### L 500.2500, L100.0100, L501.4021 #### [facility] [address] [place], [address] Glucose [Mass/Vol] 91 mg/dL Normal 70-99 [facility] Comment on above: Performed By: #### L 500.2500, L100.0100, L501.4021 #### [facility] [address] [place], [address] Potassium [Moles/Vol] 3.6 mmol/L Normal 3.3-5.1 [facility] Comment on above: Performed By: #### L 500.2500, L100.0100, L501.4021 #### [facility] [address] [place], [address] Sodium [Moles/Vol] 138 mmol/L Normal 133-145 [facility] Comment on above: Performed By: #### L 500.2500, L100.0100, L501.4021 #### [facility] [address] [place], [address] Urea nitrogen [Mass/Vol] 16 mg/dL Normal 4-19 [facility] Comment on above: Performed By: #### L 500.2500, L100.0100, L501.4021 #### [facility] [address] [place], [address] Basophil percentageOrdered B y: Mainor Portillo on 12-01-2024 Basophils/100 WBC (Bld) 0.7 % 0-1 [facility] CBC W/Diff, Automatedon 11-09 Absolute Lymph 1.89 X10 3/uL Normal 0.83-4.51 [facility] Comment on above: Performed By: #### L 500.2500, L100.0100, L501.4021 #### [facility] [address] [place], [address] Absolute Neut 3.5 X10 3/uL Normal 2.0-7.7 [facility] Comment on above: Performed By: #### L 500.2500, L100.0100, L501.4021 #### [facility] [address] [place], [address] Basophils/100 WBC (Bld) 0.7 % Normal 0-1 [facility] Comment on above: Performed By: #### L 500.2500, L100.0100, L501.4021 #### [facility] [address] [place], [address] Eosinophils/100 WBC (Bld) 0.7 % Normal 0-5 [facility] Comment on above: Performed By: #### L 500.2500, L100.0100, L501.4021 #### [facility] [address] [place], [address] Erythrocyte distribution width (RBC) [Ratio] 12.5 % Normal 11.6-14.6 [facility] Comment on above: Performed By: #### L 500.2500, L100.0100, L501.4021 #### [facility] [address] [place], [address] Hematocrit (Bld) [Volume fraction] 38.0 % Normal 37-47 [facility] Comment on above: Performed By: #### L 500.2500, L100.0100, L501.4021 #### [facility] [address] [place], [address] Hemoglobin (Bld) [Mass/Vol] 13.2 g/dL Normal 12.0-15.0 [facility] Comment on above: Performed By: #### L 500.2500, L100.0100, L501.4021 #### [facility] [address] [place], [address] IG% 0.200 Normal 0.0-0.9 [facility] Comment on above: Result Comment: IG% - Immature Granulocytes (promyelocytes, myelocytes and metamyelocytes) > 1% indicates that a LEFT SHIFT is Present. Performed By: #### L 500.2500, L100.0100, L501.4021 #### [facility] [address] [place], [address] Lymphocytes/100 WBC (Bld) 31.0 % Normal 19-41 [facility] Comment on above: Performed By: #### L 500.2500, L100.0100, L501.4021 #### [facility] [address] [place], [address] MCH (RBC) [Entitic mass] 30.7 pg Normal 27.0-32.0 [facility] Comment on above: Performed By: #### L 500.2500, L100.0100, L501.4021 #### [facility] [address] [place], [id number] MCHC (RBC) [Mass/Vol] 34.7 g/dL Normal 32-36 [facility] Comment on above: Performed By: #### L 500.2500, L100.0100, L501.4021 #### [facility] [address] [place], [id number] MCV (RBC) [Entitic vol] 88.4 fL Normal 81-99 [facility] Comment on above: Performed By: #### L 500.2500, L100.0100, L501.4021 #### [facility] [address] [place], [id number] Monocytes/100 WBC (Bld) 9.5 % Normal 0-10 [facility] Comment on above: Performed By: #### L 500.2500, L100.0100, L501.4021 #### [facility] [address] [place], [id number] Neutrophils/100 WBC (Bld) 57.9 % Normal 47-70 [facility] Comment on above: Performed By: #### L 500.2500, L100.0100, L501.4021 #### [facility] [address] [place], [id number] Nucleated RBC (Bld) [#/Vol] 0 10*3/uL Normal 0-5 [facility] Comment on above: Performed By: #### L 500.2500, L100.0100, L501.4021 #### [facility] [address] [place], [id number] Platelet mean volume (Bld) [Entitic vol] 10.2 fL Normal 6.2-12.0 [facility] Comment on above: Performed By: #### L 500.2500, L100.0100, L501.4021 #### [facility] [address] [place], [address] Platelets (Bld) [#/Vol] 211 10*3/uL Normal 150-450 [facility] Comment on above: Performed By: #### L 500.2500, L100.0100, L501.4021 #### [facility] [address] [place], [address] RBC (Bld) [#/Vol] 4.30 10*6/uL Normal 4.2-5.4 [facility] Comment on above: Performed By: #### L 500.2500, L100.0100, L501.4021 #### [facility] [address] [place], [address] RDW SD 40.6 fl Normal 35.1-43.9 [facility] Comment on above: Performed By: #### L 500.2500, L100.0100, L501.4021 #### [facility] [address] [place], [address] WBC (Bld) [#/Vol] 6.1 10*3/uL Normal 4.4-11.0 [facility] Comment on above: Performed By: #### L 500.2500, L100.0100, L501.4021 #### [facility] [address] [place], [address] Carbon dioxide, total [Moles /volume] in Central venous bloodOrdered By: Mainor Portillo on 12-01-2024 CO2 [Moles/Vol] 23.9 mmol/L 21.0-32.0 [facility] Chest 1 View (Portable)on Chest 1 View (Portable) [facility] Imaging Services [address] [place] [address] Chest 1 View (Portable) MR#: [id number] Acct: [id number] Name: THELMA VINSON Rep #: [id number] : 1960 F 64 From: Abel Salazar MD PCP: Mena Britton Status: REG ER Study: Chest 1 View (Portable) Date of Exam: 12/01/24 Exam# [id number] Ordering Dr: Mainor Portillo MD PROCEDURE: CHEST 1 VIEW (PORTABLE) 12/01/2024 REASON FOR EXAM: CHEST PAIN TECHNIQUE: Frontal view of the chest. COMPARISON: None. FINDINGS: The heart is normal in size. The lungs are clear. No pleural effusion or pneumothorax. No acute osseous abnormalities. RAD/Chest 1 View (Portable) IMPRESSION: No Acute Findings. Reading Location: [facility] CC: Dr. Mainor Portillo MD; Mena Britton Tree Surgeon: Signed Normal [facility] Chloride assayOrdered By: Nasir Portillo on 12-01-2024 Chloride [Moles/Vol] 102 mmol/L 98-108 [facility] Emergency Department Summary on 12-01-2024 Emergency Department Summary [facility] Medical Records Department [address] [place] [address] Emergency Department Summary 12/01/24 MR#: [id number] Acct: [id number] Name: THELMA VINSON Rep #: [id number] : 1960 64 From: Maionr Portillo MD PCP: Mena Britton Status:REG ER Location: ED HPI History of Present Illness Chief Complaint: Back Narrative Narrative: 64-year-old female past medical history of hypertension presents with her daughter because of thoracic back pain that she has had between her shoulder blades since Thursday, 4 days ago. Today, she began having anterior chest pain and heaviness. She denies any fevers or chills, no cough, no nausea or vomiting, no diaphoresis. She also had left arm pain. It is described more as dull and achy. Her back pain is relatively constant, and her chest pain that began today at around 1030 approximately 5 hours ago is relatively constant as well. No recent falls or trauma. 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 Skin cancer, basal cell Heart murmur UTI (urinary tract infection) COVID-19 Home Medications ???Medication ???Instructions ???Recorded ???Last Taken ???Type thyroid (pork) 30 mg tablet 30 mg PO DAILY 03/14/16 12/01/24 H istory ([place] Thyroid) lisinopril 20 mg tablet 20 mg PO DAILY #90 tabs 04/28/24 0 12/01/24 Rx hydrochlorothiazide 25 mg tablet 25 mg PO DAILY #90 tabs 09/29/24 0 12/01/24 Rx Allergy/AdvReac Type Severity Reaction Status Date / Time NSAIDS (Non-Steroidal AdvReac Other Verified 12/01/24 15:38 Anti-Inflamma Family History Mother Angina at rest Hypertension Multiple lipomas Atrial fibrillation Father Angina at rest Diabetes Heart disease CABG CVA (cerebral vascular accident) Lymphoma CAD (coronary artery disease) 14 stents between heart, carotids, kidney Atrial fibrillation Brother Diabetes Heart disease Sister Lymphoma Uterine cancer Grandmother Cervical cancer Surgical History Status post excision of lipoma History of carpal tunnel release History of appendectomy Carpal tunnel syndrome Social History Smoking Status: Never smoker alcohol intake: never substance use type: does not use caffeine: Yes (Rarely) additional social history: Does Take Aspirin As Needed Does Take Ibuprofen As Needed ROS ROS ED ROS Narrative Review of systems positive for thoracic back pain worse with some movements, and touching a small area. No fevers or chills, no nausea or vomiting. Positive chest achiness midsternal, pinpoint. No diaphoresis. Reported left arm heaviness as well. EXAM Physical Exam Narrative Exam Narrative: Afebrile. Vital signs noted. Nontoxic-appearing. Cardiovascular examination reveals a regular rate and rhythm. Lungs are clear to auscultation bilaterally. Abdomen is soft and nontender. Positive tenderness to palpation mid thoracic back between scapula. No step-off. Positive tenderness to palpation midsternal area between breasts, no crepitance. Full range of motion bilateral upper extremities. Ambulatory in ED. Neurological examination nonfocal and nonlateralizing. Const Vital Signs: 12/01/24 15:37 12/01/24 16:30 Temperature 98.6 F Temperature Source Oral Pulse Rate 67 Respiratory Rate 18 Blood Pressure 152/64 H Blood Pressure Mean 93 Pulse Ox 98 Oxygen Delivery Method Room Air Room Air MDM MDM MDM Narrative Medical decision making narrative: The differential diagnosis includes but not limited to thoracic compression fracture versus musculoskeletal back pain/thoracic strain versus ACS/unstable angina. History and physical does not necessarily support ACS. Comprehensive workup was pursued. She has not had a fall so I have lower suspicion for thoracic compression fracture. X-rays will be obtained of the thoracic spine to rule out fracture. EKG was obtained and interpreted by myself independently as normal sinus rhythm with sinus arrhythmia at [address] changes. No STEMI. Chest x (more content not included)... Normal [facility] Eosinophil percentageOrdered By: Mainor Portillo on 12-01-2024 Eosinophils/100 WBC (Bld) 0.7 % 0-5 [facility] Erythrocyte distribution wid th ratioOrdered By: Mainor Portillo on 12-01-2024 Erythrocyte distribution width (RBC) [Ratio] 12.5 % 11.6-14.6 [facility] Erythrocyte distribution wid th standard deviationOrdered By: Mainor Portillo on 12-01-2024 Erythrocyte distribution width (RBC) [Ratio] 40.6 fl 35.1-43.9 [facility] Glomerular filtration rate ( GFR) estimation/1.73 sq m using serum, plasma, or whole bOrdered By: Mainor Portillo on 12-01-2024 GFR/1.73 sq M.predicted among non-blacks MDRD (S/P/Bld) [Vol rate/Area] 67 mL/min/{1.73_m2} >60 [facility] Comment on above: mL/min/1.73m2 CKD-EP I Creatinine Equation (2020) Hematocrit Auto (Bld) [Volum e fraction]Ordered By: Mainor Portillo on 12-01-2024 Hematocrit (Bld) [Volume fraction] 38.0 % 37-47 [facility] Hemoglobin measurementOrdere d By: Mainor Portillo on 12-01-2024 Hemoglobin (Bld) [Mass/Vol] 13.2 g/dL 12.0-15.0 [facility] Immature granulocytes/100 WB C Auto (Bld)Ordered By: Mainor Portillo on 12-01-2024 Immature granulocytes/100 WBC (Bld) 0.200 % 0.0-0.9 [facility] Comment on above: IG% - Immature Granu locytes (promyelocytes, myelocytes and metamyelocytes) > 1% indicates that a LEFT SHIFT is Present. L501.4021on 12-01-2024 Trop T High Sen < 6 Normal <=14 [facility] Comment on above: Performed By: #### L 500.2500, L100.0100, L501.4021 #### [facility] Laboratory [address] [facility] [place], [address] MCV (mean corpuscular volume ) determinationOrdered By: Mainor Portillo on 12-01-2024 MCV (RBC) [Entitic vol] 88.4 fL 81-99 [facility] Mean corpuscular hemoglobin (MCH) determinationOrdered By: Mainor Portillo on 12-01-2024 MCH (RBC) [Entitic mass] 30.7 pg 27.0-32.0 [facility] Mean corpuscular hemoglobin concentration (MCHC) determinationOrdered By: Mainor Portillo on 12-01-2024 MCHC (RBC) [Mass/Vol] 34.7 g/dL 32-36 [facility] Mean platelet volume determi nationOrdered By: Mainor Portillo on 12-01-2024 Platelet mean volume (Bld) [Entitic vol] 10.2 fL 6.2-12.0 [facility] Monocyte percentageOrdered B y: Mainor Portillo on 12-01-2024 Monocytes/100 WBC (Bld) 9.5 % 0-10 [facility] Neutrophil percentageOrdered By: Mainor Portillo on 12-01-2024 Neutrophils/100 WBC (Bld) 57.9 % 47-70 [facility] Nucleated red blood cell per centageOrdered By: Mainor Portillo on 12-01-2024 Nucleated RBC/100 WBC (Bld) [Ratio] 0 % 0-5 [facility] Platelet countOrdered By: Nasir Portillo on 12-01-2024 Platelets (Bld) [#/Vol] 211 10*3/uL 150-450 [facility] Potassium measurement (mass/ volume)Ordered By: Mainor Portillo on 12-01-2024 Potassium (Unsp spec) [Mass/Vol] 3.6 mmol/L 3.3-5.1 [facility] RBC Auto (Bld) [#/Vol]Ordere d By: Mainor Portillo on 12-01-2024 RBC (Bld) [#/Vol] 4.30 10*6/uL 4.2-5.4 [facility] Serum creatinine measurement (mass/volume)Ordered By: Mainor Portillo on 12-01-2024 Creatinine [Mass/Vol] 0.95 mg/dL 0.70-1.20 [facility] Serum glucose measurement (m ass/volume)Ordered By: Mainor Portillo on 12-01-2024 Glucose [Mass/Vol] 91 mg/dL 70-99 [facility] Serum or plasma calcium sue urement (mass/volume)Ordered By: Mainor Portillo on 12-01-2024 Calcium [Mass/Vol] 9.4 mg/dL 7.6-11.0 [facility] Serum or plasma urea nitroge n measurement (mass/volume)Ordered By: Mainor Portillo on 12-01-2024 Urea nitrogen [Mass/Vol] 16 mg/dL 4-19 [facility] Sodium levelOrdered By: Mainor Portillo on 12-01-2024 Sodium [Moles/Vol] 138 mmol/L 133-145 [facility] Thoracic Spine 3 Viewson Thoracic Spine 3 Views [facility] Imaging Services [address] [address] Thoracic Spine 3 Views MR#: [id number] Acct: [id number] Name: THELMA VINSON Rep #: [id number] : 1960 F 64 From: Abel Salazar MD PCP: Mena Britton Status: REG ER Study: Thoracic Spine 3 Views Date of Exam: 12/01/24 Exam# [id number] Ordering Dr: Mainor Portillo MD PROCEDURE: THORACIC SPINE 3 VIEWS 12/01/2024 REASON FOR EXAM: PAIN TECHNIQUE: THORACIC SPINE 3 VIEWS COMPARISON: None. FINDINGS: No evidence of acute fracture or dislocation. Mild discogenic degenerative changes. S shaped scoliosis. RAD/Thoracic Spine 3 Views IMPRESSION: No acute osseous abnormalities. Reading Location: [facility] CC: Dr. Mainor Portillo MD; Mena Britton Tree Surgeon: Signed Normal [facility] Troponin T HS 2 HRon 025 Trop T High Sen 7 ng/L Normal <=14 [facility] Comment on above: Performed By: #### L 499.0042 #### [facility] Laboratory [address] [place], [place], [address] Troponin T HS 4 HRon 025 Trop T High Sen Normal <=14 [facility] Comment on above: Result Comment: Canc elled via OM: Order cancelled - Patient discharged Performed By: #### L 499.0043 ####[facility] [id number] [facility] [place], [place], [address] Troponin T.cardiac [Mass/vol ume] in Serum or Plasma by High sensitivity methodOrdered By: Mainor Portillo on 12-01-2024 Troponin T.cardiac High sensitivity method [Mass/Vol] 7 ng/L <14 [facility] Troponin T.cardiac High sensitivity method [Mass/Vol] < 6 ng/L <14 [facility] White blood cell (WBC) count Ordered By: Mainor Portillo on 12-01-2024 WBC (Bld) [#/Vol] 6.1 10*3/uL 4.4-11.0 [facility] MAMMOGRAM SCREENING BILAT ERAL W/TOMOon 11-04-2024 MA MAMMOGRAM SCREENING BILATERAL W/LUPILLO ORIGINAL FROM: [place] [address] [address] PROCEDURE FOR: THELMA VINSON [address] [place] [address] Home: PID#: [id number] Exam#: [id number] : 1960 Age: 64 TO: MENA BRITTON [employer] [facility] [address] [place], [place] [address] Fax: NO FAX EXAMINATION: SCREENING DIGITAL BILATERAL MAMMOGRAM WITH TOMOSYNTHESIS, 11/04/2024 8:03 am TECHNIQUE: Screening mammography of the bilateral breasts was performed with tomosynthesis. 2D standard and 3D tomosynthesis combination imaging performed through both breasts in the MLO and CC projection. Computer aided detection was utilized in the interpretation of this exam. COMPARISON: 08/05/2023, 07/24/2022 HISTORY: Breast cancer screening. FINDINGS: BREAST DENSITY: There are scattered areas of fibroglandular density. There are no significant masses or calcifications. IMPRESSION: No mammographic evidence of malignancy. Continued screening with annual mammograms is recommended. Jenni Zamudio risk calculations, generated with the history provided, report this patient's 10 year risk and lifetime risk for developing breast cancer at 2.8% and 6.0%, respectively. Based on this assessment tool, if the patient's calculated lifetime risk is below 20%, then the patient is considered at average risk for developing breast cancer. If the patient's calculated lifetime risk is at or above 20%, then the patient is considered high risk for developing breast cancer and may be a candidate for supplemental breast MRI screening in addition to annual mammographic screening per the [place] [employer]. BIRADS: BI-RADS: 1: Negative RECALL: 1 year screening RECALL TYPE: mammo LETTER SENT: Normal BI-RADS 1 and 2 Interpreted by: Edmond Peck MD Preliminary Report By: Edmond Peck MD Electronically signed By Edmond Peck MD Dictated Date: 11/04/2024 11:01:37 AM Prelim Date: 11/04/2024 11:05:23 AM Sign Date: 11/04/2024 11:05:23 AM Ordering Provider: MENA BRITTON Interpreted by: Edmond Peck MD Preliminary Report By: Edmond Peck MD Electronically signed By Edmond Peck MD Dictated Date: 11/04/2024 11:01:37 AM Prelim Date: 11/04/2024 11:05:23 AM Sign Date: 11/04/2024 11:05:23 AM Ordering Provider: MENA BRITTON Sulphate Tester: JOÃO LEBLANC RT(R)(CT) letter sent: Normal BI-RADS 1 and 2 Mammogram BI-RADS: [address] [facility] Kidney and Bladderon 025 Kidney and Bladder [facility] Imaging Services [address] [place] [id number] Kidney and Bladder MR#: [id number] Acct: [id number] Name: THELMA VINSON Rep #: [id number] : 1960 F 63 From: Steve ames MD PCP: Mena Britton Status: REG CLI Study: Kidney and Bladder Date of Exam: 09/20/24 Exam# [id number] Ordering Dr: Thelma Kwon MD PROCEDURE: KIDNEY AND BLADDER 09/20/2024 REASON FOR EXAM: RENAL MASS TECHNIQUE: Bilateral renal ultrasound. COMPARISON: Comparison is made with prior sonogram dated September 23, [address] scan dated October 15, 2023. FINDINGS: RIGHT Kidney Size: 10.8 cm x 5.2 cm x 6.1 cm Volume: 177.6 mL Cortical Thickness (if discernible): 1.4 (>6mm is normal) Once again, there are 2 subcentimeter angiomyolipomas. These are unchanged. The larger measures 8 mm x 8 mm x 9 mm. LEFT Kidney Size: 10.6 cm x 4.2 cm x 4.9 cm Volume: 113.6 mL Cortical Thickness (if discernible): 1.5 (>6mm is normal) Stable 1.9 cm x 2 cm x 1.8 cm angiomyolipoma. Stable 1.4 cm x 1.5 cm 1.2 cm renal cyst. The urinary bladder is unremarkable. US/Kidney and Bladder IMPRESSION: Stable examination with bilateral angiomyolipomas and left renal cyst. Reading Location: [id number] CC: Dr. Thelma Kwon MD; Mena Britton Tree Surgeon: Signed Normal [facility] Cardiology Visit Reporton Cardiology Visit Report [facility] [address] [place] [address] OFFICE VISIT Date of Service: 04/28/24 MR#: [id number] Acct: [id number] Name: THELMA VINSON Rep #: [id number] : 1960 Provider: Dr. Mahesh Hoyt MD Age/Sex: 63/F [place] [facility] [place] Status: Signed HPI HPI History of Present Illness Details: This is a 63-year-old lady who presents to the office today for a cardiovascular follow-up visit. She has a history of hypertension, history of Rosibel's thyroiditis and difficult to control blood pressure. She says that she has had this problem since she developed COVID about a year and a half ago. She has also been quite concerned since her friend also . She has been under some amount of stress. She has been in the emergency room in January 2022 and was evaluated. She did have an echocardiogram performed recently which demonstrated an ejection fraction of 55 to 60% with no wall motion abnormalities. Valvular structures were noted to be normal. From a cardiac standpoint, the patient is doing well. She denies any palpitations, chest pain, pressure or heaviness. She denies SOB, Orthopnea, and PND. She does not have bleeding issues; no blood in urine, stool or nosebleeds. She denies any decrease in energy level, myalgias, or claudication. She does not have edema, or sudden weight gain. She denies dizziness, lightheadedness, syncopal or near syncopal episodes, and headaches. 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 boulardii)) hydrochlorothiazide 25 mg tablet 25 mg PO DAILY #90 tabs 10/01/23 04/28/24 Rx lisinopril 20 mg tablet 20 mg PO DAILY #90 tabs 04/28/24 04/28/24 Rx psyllium husk 0.52 gram capsule 0.52 g PO QDAY 04/28/24 04/28/24 History (Daily Fiber) Have you fallen in the past year?: No PFSH Medical History Dysphagia Paresthesia of left lower extremity Swelling of left lower extremity Adenomyosis GERD (gastroesophageal reflux disease) Essential hypertension Other acute postprocedural pain Wears glasses History of hiatal hernia Heartburn Non-smoker History of echocardiogram History of stress test Personal history of skin cancer Subcutaneous mass of left lower extremity Subcutaneous mass of right lower extremity Subcutaneous mass of abdominal wall Subcutaneous mass of left upper extremity Subcutaneous mass of right upper extremity Dysesthesia Benign lipomatous neoplasm of kidney Rosibel's thyroiditis Skin cancer, basal cell Heart murmur UTI (urinary tract infection) COVID-19 Surgical History Status post excision of lipoma History of carpal tunnel release History of appendectomy Carpal tunnel syndrome Family History Mother Angina at rest Hypertension Multiple lipomas Atrial fibrillation Father Angina at rest Diabetes Heart disease CABG CVA (cerebral vascular accident) Lymphoma CAD (coronary artery disease) 14 stents between heart, carotids, kidney Atrial fibrillation Brother Diabetes Heart disease Sister Lymphoma Uterine cancer Grandmother Cervical cancer Social History Smoking Status: Never smoker alcohol intake: never substance use type: does not use caffeine: Yes (Rarely) additional social history: Does Take Aspirin As Needed Does Take Ibuprofen As Needed ROS Const Const: Negative for fatigue, weakness, headache(s), daytime sleepiness or difficulty sleeping ENT ENT: Negative for headache(s), dizziness or Nosebleed/epistaxis Cardio Chest Pain: No Palpitations: No Edema: None Resp Respiratory: Negative for SOB with activity, SOB at rest, SOB orthopnea SOB lying down or Cough GI GI: Negative nausea, vomiting or heartburn Neuro Neuro: Negative for dizziness, lightheadedness, near syncope, headache(s) or weakness Endo Endo: Negative for fatigue Cardiology Exam Const Appearance: cooperative, healthy appearing, no ac (more content not included)... Normal [facility] No Panel Informationon 11-25 Culture Urine No growth at 48 hours. [facility] Work Phone: MA MAMMOGRAM SCREENING BILAT ERAL W/TOMOon 08-09-2023 MA MAMMOGRAM SCREENING BILATERAL W/LUPILLO ORIGINAL FROM: [address] [address] PROCEDURE FOR: THELMA VINSON [address] [place] [address] Home: PID#: [id number] Exam#: [id number] : 1960 Age: 62 TO: MENA BRITTON APRN [address] [address] Fax: NO FAX EXAMINATION: SCREENING DIGITAL BILATERAL MAMMOGRAM WITH TOMOSYNTHESIS, 08/05/2023 11:30 am TECHNIQUE: Screening mammography of the bilateral breasts was performed with tomosynthesis. 2D standard and 3D tomosynthesis combination imaging performed through both breasts in the MLO and CC projection. Computer aided detection was utilized in the interpretation of this exam. COMPARISON: 07/24/2022, 08/31/2020 HISTORY: Breast cancer screening. FINDINGS: BREAST DENSITY: Scattered fibroglandular tissue There are no significant masses or calcifications. IMPRESSION: No mammographic evidence of malignancy. Continued screening with annual mammograms is recommended. Jenni Zamudio risk calculations, generated with the history provided, report this patient's 10 year risk and lifetime risk for developing breast cancer at 2.8% and 6.4%, respectively. Based on this assessment tool, if the patient's calculated lifetime risk is below 20%, then the patient is considered at average risk for developing breast cancer. If the patient's calculated lifetime risk is at or above 20%, then the patient is considered high risk for developing breast cancer and may be a candidate for supplemental breast MRI screening in addition to annual mammographic screening per the [place] [employer]. BIRADS: MAMMOGRAM BI-RADS: 1: Negative RECALL: 1 year screening RECALL TYPE: mammo LETTER SENT: Normal BI-RADS 1 and 2 Interpreted by: Edmond Peck MD Preliminary Report By: Edmond Peck MD Electronically signed By Edmond Peck MD Dictated Date: 08/09/2023 2:45:31 PM Prelim Date: 08/09/2023 2:47:46 PM Sign Date: 08/09/2023 2:47:46 PM Ordering Provider: MENA BRITTON Sulphate Tester: DIANE LICONA RT(R)(M)(CT) PROJ MGR letter sent: Normal BI-RADS 1 and 2 Mammogram BI-RADS: 1 Negative Normal [facility] (ID) .GFRon 07-17-2023 GFR Non- 101 ml/min/1.73sqm Normal [facility] ([place]) Comment on above: Result Comment: GFR Population mean for , Non- Americans Ages 20-29 = 116 mL/min/1.73 sq.m. Ages 30-39 = 107 mL/min/1.73 sq.m. Ages 40-49 = 99 mL/min/1.73 sq.m. Ages 50-59 = 93 mL/min/1.73 sq.m. Ages 60-69 = 85 mL/min/1.73 sq.m. Ages 70+ = 75 mL/min/1.73 sq.m. Chronic Kidney Disease: Less than 60 mL/min/1.73 square meters End Stage Renal Disease: Less than 15 mL/min/1.73 square meters Performed By: #### A HEATHER, ADIFF, CMP, FT4, GFR, CBC, TSH ####[address] [place], [place] [address] GFR 123 ml/min/1.73sqm Normal [facility] ([place]) Comment on above: Result Comment: GFR Population mean for , Non- Americans Ages 20-29 = 116 mL/min/1.73 sq.m. Ages 30-39 = 107 mL/min/1.73 sq.m. Ages 40-49 = 99 mL/min/1.73 sq.m. Ages 50-59 = 93 mL/min/1.73 sq.m. Ages 60-69 = 85 mL/min/1.73 sq.m. Ages 70+ = 75 mL/min/1.73 sq.m. Chronic Kidney Disease: Less than 60 mL/min/1.73 square meters End Stage Renal Disease: Less than 15 mL/min/1.73 square meters Performed By: #### A HEATHER, ADIFF, CMP, FT4, GFR, CBC, TSH ####[address] [address] CMPon 07-17-2023 Albumin Level 3.9 G/dL Normal 3.4-4.8 [facility] ([place]) Comment on above: Performed By: #### A HEATHER, ADIFF, CMP, FT4, GFR, CBC, TSH #### [place] [address] [address] Albumin/Globulin [Mass ratio] 1.2 {ratio} Normal 1.1-2.5 [facility] ([place]) Comment on above: Performed By: #### A HEATHER, ADIFF, CMP, FT4, GFR, CBC, TSH #### [address] [place] [address] [place], [place] [address] CO2 [Moles/Vol] 29 mmol/L Normal 23-31 [facility] ([place]) Comment on above: Performed By: #### A HEATHER, ADIFF, CMP, FT4, GFR, CBC, TSH #### [address] [address] Electrolyte Balance 8.0 mEq/L Normal 4.0-15.0 [facility] ([place]) Comment on above: Performed By: #### A HEATHER, ADIFF, CMP, FT4, GFR, CBC, TSH #### [address] [address] Globulin 3.2 G/dL Normal [facility] ([place]) Comment on above: Performed By: #### A HEATHER, ADIFF, CMP, FT4, GFR, CBC, TSH #### [address] [address] Total Protein 7.1 G/dL Normal 6.4-8.2 [facility] ([place]) Comment on above: Performed By: #### A HEATHER, ADIFF, CMP, FT4, GFR, CBC, TSH #### [place] [address] ALP [Catalytic activity/Vol] 85 U/L Normal 40-135 [facility] ([place]) Comment on above: Performed By: #### A HEATHER, ADIFF, CMP, FT4, GFR, CBC, TSH #### [address] [address] ALT [Catalytic activity/Vol] 33 U/L Normal 14-59 [facility] ([place]) Comment on above: Performed By: #### A HEATHER, ADIFF, CMP, FT4, GFR, CBC, TSH #### [address] [address] AST [Catalytic activity/Vol] 20 U/L Normal 10-40 [facility] ([place]) Comment on above: Performed By: #### A HEATHER, ADIFF, CMP, FT4, GFR, CBC, TSH #### [address] [address] Bili Total 0.5 mg/dL Normal 0.2-1.0 [facility] ([place]) Comment on above: Result Comment: Use of this assay is not recommended for patients undergoing treatment with eltrombopag due to the potential for falsely elevated results. Performed By: #### A HEATHER, ADIFF, CMP, FT4, GFR, CBC, TSH #### [address] [address] BUN/Creatinine Ratio 35 ratio High 7-27 [facility] ([place]) Comment on above: Performed By: #### A HEATHER, ADIFF, CMP, FT4, GFR, CBC, TSH #### [address] [address] Calcium [Mass/Vol] 9.0 mg/dL Normal 8.4-10.2 Replaced by [facility] ([place]) Comment on above: Performed By: #### A HEATHER, ADIFF, CMP, FT4, GFR, CBC, TSH #### [address] [address] Chloride [Moles/Vol] 101 mmol/L Normal 98-107 [facility] ([place]) Comment on above: Performed By: #### A HEATHER, ADIFF, CMP, FT4, GFR, CBC, TSH #### [address] [address] Creatinine [Mass/Vol] 0.60 mg/dL Normal 0.55-1.02 [facility] ([place]) Comment on above: Performed By: #### A HEATHER, ADIFF, CMP, FT4, GFR, CBC, TSH #### [address] [address] Glucose [Mass/Vol] 96 mg/dL Normal 80-115 Replaced by [facility] ([place]) Comment on above: Performed By: #### A HEATHER, ADIFF, CMP, FT4, GFR, CBC, TSH #### [address] [address] Potassium [Moles/Vol] 4.6 mmol/L Normal 3.5-5.1 [facility] ([place]) Comment on above: Performed By: #### A HEATHER, ADIFF, CMP, FT4, GFR, CBC, TSH #### [address] [address] Sodium [Moles/Vol] 138 mmol/L Normal 136-145 Replaced by [facility] ([place]) Comment on above: Performed By: #### A HEATHER, ADIFF, CMP, FT4, GFR, CBC, TSH #### [place] [address] Urea nitrogen [Mass/Vol] 21 mg/dL High 7-18 [facility] ([place]) Comment on above: Performed By: #### A HEATHER, ADIFF, CMP, FT4, GFR, CBC, TSH #### [place] [address] FT4on 07-17-2023 Free T4 [Mass/Vol] 0.89 ng/dL Normal 0.76-1.46 Replaced by [facility] ([place]) Comment on above: Performed By: #### A HEATHER, ADIFF, CMP, FT4, GFR, CBC, TSH #### [place] [address] TSHon 07-17-2023 TSH Qn 1.92 m[IU]/L Normal 0.36-3.74 [facility] ([place]) Comment on above: Performed By: #### A HEATHER, ADIFF, CMP, FT4, GFR, CBC, TSH #### [address] [address] .Auto Diffon 07-16-2023 Basophil, Absolute 0.0 10 3/mcL Normal 0.0-0.2 [facility] ([place]) Comment on above: Performed By: #### A HEATHER, ADIFF, CMP, FT4, GFR, CBC, TSH #### [address] [address] Basophils/100 WBC (Bld) 0.7 % Normal 0.0-2.5 [facility] ([place]) Comment on above: Performed By: #### A HEATHER, ADIFF, CMP, FT4, GFR, CBC, TSH #### [address] [address] Eosinophil, Absolute 0.1 10 3/mcL Normal 0.0-0.4 [facility] ([place]) Comment on above: Performed By: #### A HEATHER, ADIFF, CMP, FT4, GFR, CBC, TSH #### [address] [address] Eosinophils/100 WBC (Bld) 1.2 % Normal 0.0-7.0 [facility] ([place]) Comment on above: Performed By: #### A HEATHER, ADIFF, CMP, FT4, GFR, CBC, TSH #### [address] [address] Lymphocyte, Absolute 2.4 10 3/mcL Normal 0.8-3.9 [facility] ([place]) Comment on above: Performed By: #### A HEATHER, ADIFF, CMP, FT4, GFR, CBC, TSH #### [address] [address] Lymphocytes/100 WBC (Bld) 35.5 % Normal 10.0-50.0 [facility] ([place]) Comment on above: Performed By: #### A HEATHER, ADIFF, CMP, FT4, GFR, CBC, TSH #### [address] [address] Monocyte, Absolute 0.6 10 3/mcL Normal 0.2-1.0 [facility] ([place]) Comment on above: Performed By: #### A HEATHER, ADIFF, CMP, FT4, GFR, CBC, TSH #### [address] [address] Monocytes/100 WBC (Bld) 9.6 % Normal 1.7-13.0 [facility] ([place]) Comment on above: Performed By: #### A HEATHER, ADIFF, CMP, FT4, GFR, CBC, TSH #### [address] [address] Neutrophils/100 WBC (Bld) 53.0 % Normal 37.0-80.0 [facility] ([place]) Comment on above: Performed By: #### A HEATHER, ADIFF, CMP, FT4, GFR, CBC, TSH #### [address] [address] .NEUABSon 07-16-2023 Neutrophil, Absolute 3.5 10 3/mcL Normal 2.9-6.2 [facility] ([place]) Comment on above: Performed By: #### A HEATHER, ADIFF, CMP, FT4, GFR, CBC, TSH #### [address] [address] CBCon 07-16-2023 Erythrocyte distribution width (RBC) [Ratio] 12.7 % Normal 11.5-14.5 [facility] ([place]) Comment on above: Performed By: #### A HEATHER, ADIFF, CMP, FT4, GFR, CBC, TSH #### [address] [address] Hematocrit (Bld) [Volume fraction] 38.6 % Normal 37.0-47.0 [facility] ([place]) Comment on above: Performed By: #### A HEATHER, ADIFF, CMP, FT4, GFR, CBC, TSH #### [place] [id number] Hgb 13.8 G/dL Normal 12.0-16.0 [facility] ([place]) Comment on above: Performed By: #### A HEATHER, ADIFF, CMP, FT4, GFR, CBC, TSH #### [address] [address] MCH (RBC) [Entitic mass] 31.8 pg High 27.0-31.2 [facility] ([place]) Comment on above: Performed By: #### A HEATHER, ADIFF, CMP, FT4, GFR, CBC, TSH #### [address] [address] MCHC 35.8 G/dL Normal 33.0-37.0 [facility] ([place]) Comment on above: Performed By: #### A HEATHER, ADIFF, CMP, FT4, GFR, CBC, TSH #### [address] [address] MCV (RBC) [Entitic vol] 88.7 fL Normal 80.0-94.0 A [facility] ([place]) Comment on above: Performed By: #### A HEATHER, ADIFF, CMP, FT4, GFR, CBC, TSH #### [address] [address] Platelet 234 10 3/mcL Normal 130-400 [facility] ([place]) Comment on above: Performed By: #### A HEATHER, ADIFF, CMP, FT4, GFR, CBC, TSH #### [address] [address] Platelet mean volume (Bld) [Entitic vol] 8.7 fL Normal 7.4-10.4 [facility] ([place]) Comment on above: Performed By: #### A HEATHER, ADIFF, CMP, FT4, GFR, CBC, TSH #### [address] [address] RBC 4.35 10 6/mcL Normal 4.20-5.40 [facility] ([place]) Comment on above: Performed By: #### A HEATHER, ADIFF, CMP, FT4, GFR, CBC, TSH #### [address] [address] WBC 6.7 10 3/mcL Normal 4.6-10.8 [facility] ([place]) Comment on above: Performed By: #### A HEATHER, ADIFF, CMP, FT4, GFR, CBC, TSH #### [address] [address] LABORATORYOrdered By: SYSTEM SYSTEM on 07-16-2023 Basophil, Absolute 0.0 103/mcL Normal 0.0 - 0.2 10^3/mcL AO Workflow SS Basophils/100 WBC (Bld) 0.7 % Normal 0.0 - 2.5 % AO Workflow SS Eosinophil, Absolute 0.1 103/mcL Normal 0.0 - 0 .4 10^3/mcL AO Workflow SS Eosinophils/100 WBC (Bld) 1.2 % Normal 0.0 - 7.0 % AO Workflow SS Erythrocyte distribution width (RBC) [Ratio] 12.7 % Normal 11.5 - 14.5 % AO Workflow SS Hematocrit (Bld) [Volume fraction] 38.6 % Normal 37.0 - 47.0 % AO Workflow SS Hemoglobin (Bld) [Mass/Vol] 13.8 G/dL Normal 12.0 - 16.0 G/dL AO Workflow SS Lymphocyte, Absolute 2.4 103/mcL Normal 0.8 - 3 .9 10^3/mcL AO Workflow SS Lymphocytes/100 WBC (Bld) 35.5 % Normal 10.0 - 50.0 % AO Workflow SS MCH (RBC) [Entitic mass] 31.8 pg High 27.0 - 31.2 pg AO Workflow SS MCHC 35.8 G/dL Normal 33.0 - 37.0 G/dL AO Workflow SS MCV (RBC) [Entitic vol] 88.7 fL Normal 80.0 - 94.0 fL AO Workflow SS Monocyte, Absolute 0.6 103/mcL Normal 0.2 - 1.0 10^3/mcL AO Workflow SS Monocytes/100 WBC (Bld) 9.6 % Normal 1.7 - 13.0 % AO Workflow SS Neutrophil, Absolute 3.5 103/mcL Normal 2.9 - 6 .2 10^3/mcL AO Workflow SS Neutrophils/100 WBC (Bld) 53.0 % Normal 37.0 - 80.0 % AO Workflow SS Platelet mean volume (Bld) [Entitic vol] 8.7 fL Normal 7.4 - 10.4 fL AO Workflow SS Platelets (Bld) [#/Vol] 234 103/mcL Normal 130 - 400 10^3/mcL AO Workflow SS RBC (Bld) [#/Vol] 4.35 106/mcL Normal 4.20 - 5.4 0 10^6/mcL AO Workflow SS WBC (Bld) [#/Vol] 6.7 103/mcL Normal 4.6 - 10.8 10^3/mcL AO Workflow SS Colonoscopyon 06-04-2023 Colonoscopy [facility] Gastrointestinal Endoscopy Patient Name: Thelma Vinson Procedure Date: 06/04/2023 1:07 PM Date of : 1960 Admit Type: Outpatient Age: 62 Gender: Female Note Status: Experienced Truck Driver Override Procedure: Colonoscopy Indications: High risk colon cancer surveillance: Personal history of colonic polyps Providers: Giancarlo Corrales MD Patient Profile: This is a 62 year old female. Refer to note in patient chart for documentation of history and physical. Last Colonoscopy: 2018. Referring Physician: Amarilys Demarco (pa) (Referring MD) Medicines: Fentanyl 100 micrograms IV, Midazolam 7 mg IV, Diphenhydramine 50 mg IV, Meperidine 50 mg IV Complications: No immediate complications. Estimated blood loss: None. Requesting Provider: Procedure: Pre-Anesthesia Assessment: - Prior to the procedure, a History and Physical was performed, and patient medications and allergies were reviewed. The patient's tolerance of previous anesthesia was also reviewed. The risks and benefits of the procedure and the sedation options and risks were discussed with the patient. All questions were answered, and informed consent was obtained. Prior Anticoagulants: The patient has taken no anticoagulant or antiplatelet agents. ASA Grade Assessment: II - A patient with mild systemic disease. After reviewing the risks and benefits, the patient was deemed in satisfactory condition to undergo the procedure. - Prior to the procedure, a History and Physical was performed, and patient medications and allergies were reviewed. The patient's tolerance of previous anesthesia was also reviewed. The risks and benefits of the procedure and the sedation options and risks were discussed with the patient. All questions were answered, and informed consent was obtained. Prior Anticoagulants: The patient has taken no anticoagulant or antiplatelet agents. ASA Grade Assessment: II - A patient with mild systemic disease. After reviewing the risks and benefits, the patient was deemed in satisfactory condition to undergo the procedure. After I obtained informed consent, the scope was passed under direct vision. Throughout the procedure, the patient's blood pressure, pulse, and oxygen saturations were monitored continuously. The Colonoscope was introduced through the anus and advanced to the cecum, identified by appendiceal orifice and ileocecal valve. The patient tolerated the procedure well. The colonoscopy was performed with difficulty due to a tortuous colon. The ileocecal valve, appendiceal orifice, and rectum were photographed. The quality of the bowel preparation was adequate to identify polyps greater than 5 mm in size. Moderate Sedation: The administration of moderate sedation was initiated at 13:19 PM. Moderate (conscious) sedation was personally administered by the endoscopist. The following parameters were monitored: oxygen saturation, heart rate, blood pressure, respiratory rate, EKG, adequacy of pulmonary ventilation, and response to care. Total physician intraservice time was 32 minutes. Findings: The perianal and digital rectal examinations were normal. The colon (entire examined portion) was significantly tortuous. Advancing the scope required applying abdominal pressure. Non-bleeding internal hemorrhoids were found during retroflexion. The hemorrhoids were mild and small. The exam was otherwise without abnormality. Impression: - Tortuous colon. - Non-bleeding internal hemorrhoids. - The examination was otherwise normal. - No specimens collected. Recommendation: - Patient has a contact number available for emergencies. The signs and symptoms of potential delayed complications were discussed with the patient. Return to normal activities tomorrow. Written discharge instructions were provided to the patient. - Resume previous diet. - Continue present medications. - Await pathology results. - Repeat colonoscopy in 10 years for screening purposes. - Return to primary care physician PRN. Procedure Code(s): --- Professional --- 06885, Colonoscopy, flexible; diagnostic, including collection of specimen(s) by brushing or washing, when performed (separate procedure) G0500, Moderate sedation services provided by the same physician or other qualified health vp care management performing a gastrointestinal endoscopic service that sedation supports, requiring the presence of an independent trained observer to assist in the monitoring of the patient's level of consciousness and physiological status; initial 15 minutes of intra-service time; patient age 5 years or older (additional time may be reported with 73669, as appropriate) [address], Moderate sedation; each additional 15 minutes intraservice time Diagnosis Code(s): --- Professional --- Z12.11, Encounter for screening for malignant neoplasm of colon Z86.010, Personal history of col (more content not included)... [facility] HISTORY PHYSICALon HISTORY PHYSICAL HNO ID: [id number] Author: GIANCARLO CORRALES MD Service: General Surgery Author Type: Physician Type: H&P Filed: 06/04/2023 13:18 Note Text: HISTORY AND PHYSICAL Thelma Moreno [place]el 1960 REFERRING PHYSICIAN: No ref. provider found CHIEF COMPLAINT: Consult (Screening for colon cancer) HPI: The patient is a 62 year old female referred for endoscopy. Thelma notes no colon complaints currently. Patient denies any change in bowel habits, weight changes, blood in stools, black tarry stools or abdominal pain. Denies family history of colon issues. The patient notes no upper GI complaints. Thelma has undergone prior endoscopy. Most recent colonoscopy was March [address] Wisdom with 5 year follow-up recommended due to adenomatous polyp. Patient notes was also told her bowel prep was suboptimal at that time. Patient denies chest pain, shortness of breath or recent hospitalizations. Denies problems with sedation in the past. PAST MEDICAL HISTORY PAST MEDICAL HISTORY Diagnosis Date Dysuria Essential hypertension Hypothyroidism Multiple thyroid nodules PAST SURGICAL HISTORY PAST SURGICAL HISTORY Procedure Laterality Date APPENDECTOMY 1975 CARPAL TUNNEL Right 2014 COLONOSCOPY FLX DX W/COLLJ SPEC WHEN PFRMD 04/28/2008 Colonoscopy COLONOSCOPY W/BIOPSY SINGLE/MULTIPLE 04/04/2019 CURRENT MEDICATIONS Current Outpatient Medications Medication Sig metoprolol succinate ER (TOPROL XL) 50 mg 24 hr tablet Take 50 mg by mouth once daily. amLODIPine (NORVASC) 10 mg tablet Take 10 mg by mouth once daily. FIBER CHOICE ORAL Take 4 capsules by mouth once daily. lisinopril (ZESTRIL, PRINIVIL) 10 mg tablet Take 10 mg by mouth once daily. hydroCHLOROthiazide (HYDRODIURIL, ESIDRIX) 25 mg tablet PUBLIC RELATIONS COORDINATOR THYROID 30 mg tablet multivitamin tablet Take 1 tablet by mouth once daily. (Patient not taking: Reported on 06/01/2023) No current facility-administered medications for this visit. ALLERGIES: Nsaids (Non-Steroidal Anti-Inflammatory Drug) PERSONAL HISTORY: SOCIAL HISTORY Social History Tobacco Use Smoking status: Never Smokeless tobacco: Never Vaping Use Vaping Use: Never used Substance Use Topics Alcohol use: No Drug use: No FAMILY HISTORY: FAMILY HISTORY FAMILY HISTORY Problem Relation Age of Onset Heart Father Diabetes Father Cancer Sister Half Sister: Ovarian other (NON HODGEKIN) Sister Heart Brother Diabetes Brother Cancer Maternal Grandmother Ovarian/Uterine REVIEW OF SYMPTOMS: The review of systems data was entered by the nurse and reviewed by mn Nursing Notes: Julisa Silveira LPN 06/01/2023 8:44 AM Signed REVIEW OF SYSTEMS: General: The patient denies fatigue, denies weight loss, denies weight gain, denies feeling hot, and denies feelings of cold. Eyes: The patient denies glaucoma, denies eye injury/surgery, does not wear glasses or contacts. Ear/Nose/Throat: The patient NOTES allergies, denies hayfever, denies ear infections, and denies bloody noses. Cardiovascular: The patient denies chest pain, denies heart disease, NOTES high blood pressure,denies cardiac stent, denies prior heart attack, denies irregular heart beat, denies high cholesterol, denies poor circulation, denies heart failure, other cardiac issues, denies claudication, denies cold feet, denies peripheral arterial stent. Respiratory: The patient denies tuberculosis, denies pneumonia, denies frequent cough, denies pulmonary embolism, denies shortness of breath, and denies coughing up blood. Gastrointestinal: The patient denies difficulty swallowing, denies acid reflux, denies ulcers, denies vomiting, denies jaundice/hepatitis, denies gallbladder problems, denies black or tarry stools, denies hemorrhoids, denies bleeding from rectum, denies diverticulitis, denies constipation, denies diarrhea, denies loss of stool control, and denies hernias. Kidney/Bladder: The patient denies kidney stones, denies urine infections, and denies bloody urine. Skin: The patient NOTES a history of skin cancer, denies bleeding/changing moles, and denies a history of skin rash. Neurologic: The patient denies a history of epilepsy/convulsions, denies headaches, denies head/spinal injuries, and denies stroke/TIA. Psychiatric: The patient denies psychiatric medications, denies depression, and denies voices, denies substance abuse. Endocrine: The patient NOTES thyroid disorders, denies diabetes, and denies hormonal problems. Hematologic: The patient denies a history of bruising, denies bleeding, and denies anemia, denies blood clots. Infections: The patient denies a history of measles and mumps, denies rheumatic fever, and denies sexually transmitted diseases. Musculoskeletal: The patient denies back pain/injury, denies back problems, denies sciatica, denies knee/foot trouble, denies arthritis, or denies gout. When was patient's last Mammogram screening? 2022 Last Colonoscopy: 2 (more content not included)... [facility] NURSING PROGon 06-04-2023 NURSING PROG HNO ID: [id number] Author: BRENDA GRAY RN Service: ? Author Type: Registered Nurse Type: Nursing Progress Note Filed: 06/04/2023 14:55 Note Text: Patient awakens easily, requests to go to restroom, IV removed and ambulates with assist of 2 to restroom. [facility] NURSING PROG HNO ID: [id number] Author: BRENDA GRAY RN Service: ? Author Type: Registered Nurse Type: Nursing Progress Note Filed: 06/04/2023 14:28 Note Text: SBAR received from Jacob RAPHAEL. Patient continues to rest comfortably, spoke to patient, she responds to verbal stimuli, but not ready to sit up for snack yet. Her mother was brought to bedside while patient continues to rest on left side comfortably. [facility] NURSING PROG HNO ID: [id number] Author: JACOB MURPHY RN Service: ? Author Type: Registered Nurse Type: Nursing Progress Note Filed: 06/04/2023 14:14 Note Text: Patient arrived laying on left side. Patient does not appear to be in any pain at this time. Abdomen appears to be nondistended and soft to palpation. Patient encouraged to belch and pass gas as needed. [facility] CNOVon 06-01-2023 CNOV Office Visit (GENSWS ) THELMA VINSON ([id number]) 1960 F Date Time Provider Department 06/01/23 8:30 AM AMARILYS DEMARCO During your visit today, we recorded the following information about you: Temperature Pulse Blood pressure Weight 98.4 degrees 75/minute 128/86 83.1 kg Height 1.702 m Amarilys Demarco PA-C 06/01/2023 10:49 AM Signed HISTORY AND PHYSICAL Thelma Vinson 1960 REFERRING PHYSICIAN: No ref. provider found CHIEF COMPLAINT: Consult (Screening for colon cancer) HPI: The patient is a 62 year old female referred for endoscopy. Thelma notes no colon complaints currently. Patient denies any change in bowel habits, weight changes, blood in stools, black tarry stools or abdominal pain. Denies family history of colon issues. The patient notes no upper GI complaints. Thelma has undergone prior endoscopy. Most recent colonoscopy was March [address] Wisdom with 5 year follow-up recommended due to adenomatous polyp. Patient notes was also told her bowel prep was suboptimal at that time. Patient denies chest pain, shortness of breath or recent hospitalizations. Denies problems with sedation in the past. PAST MEDICAL HISTORY Diagnosis Date Dysuria Essential hypertension Hypothyroidism Multiple thyroid nodules PAST SURGICAL HISTORY Procedure Laterality Date APPENDECTOMY 1975 CARPAL TUNNEL Right 2014 COLONOSCOPY FLX DX W/COLLJ SPEC WHEN PFRMD 04/28/2008 Colonoscopy COLONOSCOPY W/BIOPSY SINGLE/MULTIPLE 04/04/2019 Current Outpatient Medications Medication Sig metoprolol succinate ER (TOPROL XL) 50 mg 24 hr tablet Take 50 mg by mouth once daily. amLODIPine (NORVASC) 10 mg tablet Take 10 mg by mouth once daily. FIBER CHOICE ORAL Take 4 capsules by mouth once daily. lisinopril (ZESTRIL, PRINIVIL) 10 mg tablet Take 10 mg by mouth once daily. hydroCHLOROthiazide (HYDRODIURIL, ESIDRIX) 25 mg tablet PUBLIC RELATIONS COORDINATOR THYROID 30 mg tablet multivitamin tablet Take 1 tablet by mouth once daily. (Patient not taking: Reported on 06/01/2023) No current facility-administered medications for this visit. ALLERGIES: Nsaids (Non-Steroidal Anti-Inflammatory Drug) PERSONAL HISTORY: Social History Tobacco Use Smoking status: Never Smokeless tobacco: Never Vaping Use Vaping Use: Never used Substance Use Topics Alcohol use: No Drug use: No FAMILY HISTORY: FAMILY HISTORY Problem Relation Age of Onset Heart Father Diabetes Father Cancer Sister Half Sister: Ovarian other (NON HODGEKIN) Sister Heart Brother Diabetes Brother Cancer Maternal Grandmother Ovarian/Uterine REVIEW OF SYMPTOMS: The review of systems data was entered by the nurse and reviewed by mn Nursing Notes: Julisa Silveira LPN 06/01/2023 8:44 AM Signed REVIEW OF SYSTEMS: General: The patient denies fatigue, denies weight loss, denies weight gain, denies feeling hot, and denies feelings of cold. Eyes: The patient denies glaucoma, denies eye injury/surgery, does not wear glasses or contacts. Ear/Nose/Throat: The patient NOTES allergies, denies hayfever, denies ear infections, and denies bloody noses. Cardiovascular: The patient denies chest pain, denies heart disease, NOTES high blood pressure,denies cardiac stent, denies prior heart attack, denies irregular heart beat, denies high cholesterol, denies poor circulation, denies heart failure, other cardiac issues, denies claudication, denies cold feet, denies peripheral arterial stent. Respiratory: The patient denies tuberculosis, denies pneumonia, denies frequent cough, denies pulmonary embolism, denies shortness of breath, and denies coughing up blood. Gastrointestinal: The patient denies difficulty swallowing, denies acid reflux, denies ulcers, denies vomiting, denies jaundice/hepatitis, denies gallbladder problems, denies black or tarry stools, denies hemorrhoids, denies bleeding from rectum, denies diverticulitis, denies constipation, denies diarrhea, denies loss of stool control, and denies hernias. Kidney/Bladder: The patient denies kidney stones, denies urine infections, and denies bloody urine. Skin: The patient NOTES a history of skin cancer, denies bleeding/changing moles, and denies a history of skin rash. Neurologic: The patient denies a history of epilepsy/convulsions, denies headaches, denies head/spinal injuries, and denies stroke/TIA. Psychiatric: The patient denies psychiatric medications, denies depression, and denies voices, denies substance abuse. Endocrine: The patient NOTES thyroid disorders, denies diabetes, and denies hormonal problems. Hematologic: The patient denies a history of bruising, denies bleeding, and denies anemia, denies blood clots. Infections: The patient denies a history of measles and mumps, denies rheumatic fever, and denies sexually transmitted diseases. Musculoskeletal: The patient denies back pain/in (more content not included)... Normal [facility] THELMA VINSON ([id number]) 1960 F Date Time Provider Department 06/01/23 AMARILYS DEMARCO During your visit today, we recorded the following information about you: Perla Warren 06/01/2023 9:12 AM Signed 06/18/2023 COLON ASC Patient to do 2 day clear fluid prep with Keila Panda please place order Perla Warren 06/01/2023 1:32 PM Signed Patient called in asking to be scheduled this 06/04/2023 instead Perla Warren Assistant Infant Toddler Teacher Allergies As of Date: 06/01/2023 Noted Allergy Reaction NSAIDS (NON-STEROIDAL ANTI-INFLAM*03/25/2019 8 - GI Upset Comments: Reflux Date Reviewed: 06/01/2023 Reviewed by: Amarilys Demarco PA-C - Fully Assessed Reason for Visit: 06/04/2023 COLON ASC [Other] Prescriptions as of 03/15/2024 - metoprolol succinate ER (TOPROL XL) 50 mg 24 hr tablet Take 50 mg by mouth once daily. - amLODIPine (NORVASC) 10 mg tablet Take 10 mg by mouth once daily. - FIBER CHOICE ORAL Take 4 capsules by mouth once daily. - lisinopril (ZESTRIL, PRINIVIL) 10 mg tablet Take 10 mg by mouth once daily. - hydroCHLOROthiazide (HYDRODIURIL, ESIDRIX) 25 mg tablet - PUBLIC RELATIONS COORDINATOR THYROID 30 mg tablet - multivitamin tablet Take 1 tablet by mouth once daily. Problem List As Of Date: 06/01/2023 (None) Encounter Status:Closed by BRANDYN MACIAS on 03/15/24 [facility] XR SPINE CERVICAL AP/LATon 0 01-02-2023 XR SPINE CERVICAL AP/LAT ORIGINAL EXAMINATION: 3 XRAY VIEWS OF THE CERVICAL SPINE01/02/2023 10:38 am COMPARISON: None. HISTORY: ORDERING SYSTEM PROVIDED HISTORY: Reason for Exam: burning in upper arms, NKI/hx of prev sx. FINDINGS: No acute fractures, compression deformity, or visible aggressive osseous lesions. Slight anterolisthesis seen of C5 on C6. Mild multilevel degenerative changes with anterior disc osteophytes best seen at C6. Mild disc space narrowing at C6-C7. Intervertebral foraminal spaces not adequately assessed on lateral view. Mild facet arthropathy seen in the lower cervical spine. There is no prevertebral soft tissue swelling. The C1-C2 relationship is maintained. The visualized thoracic structures are unremarkable. IMPRESSION: No compression deformity or osseous abnormality. Mild multilevel degenerative changes. I have personally reviewed the images of this examination and agree with the resident's findings and interpretation. Interpreted by: Derrell Mederos MD Preliminary Report By: Rosa Seymour Electronically signed By Derrell Mederos MD Dictated Date: 01/02/2023 2:10:16 PM Prelim Date: 01/02/2023 2:41:08 PM Sign Date: 01/02/2023 2:41:08 PM Ordering Provider: MENA BRITTON [facility]) XR SPINE LUMBAR AP/LATon XR SPINE LUMBAR AP/LAT ORIGINAL EXAMINATION: XRAY VIEWS OF THE LUMBAR SPINE01/02/2023 10:40 am LUMBAR SPINE 2 or 3 VIEWS COMPARISON: None HISTORY: ORDERING SYSTEM PROVIDED HISTORY: Reason for Exam: burning in legs burning in legs. NKI/hx of prev. sx FINDINGS: Lumbar vertebrae are intact with normal height and alignment. Lumbar disc spaces are well preserved. The pedicles are intact. There is no appreciable degenerate facet arthropathy or spondylolysis. Sacrum and sacroiliac joints are normal. IMPRESSION: Normal three-view lumbar spine. Interpreted by: Calvin Darling Preliminary Report By: Calvin Darling Electronically signed By Calvin Darling Dictated Date: 01/02/2023 10:43:11 AM Prelim Date: 01/02/2023 10:43:55 AM Sign Date: 01/02/2023 10:43:55 AM Ordering Provider: MENA BRITTON [facility] ([place]) Basophil percentageOrdered B y: Dr. Hoyt on 09-17-2022 Basophil percentage < 0.9 mg/dL 0.55-1.02 [facility] No Panel InformationOrdered By: Dr. Hoyt on 09-17-2022 Bedside Estimated GFR (eGFR) > 60.0000 mL/min >60 [facility] No Panel Informationon 07-26 Culture Urine <10,000 cfu/ml. No Significant growth. Sensitivity not indicated. [facility] Work Phone: AMIKACIN:SUSC:PT:ISOLATE:ORD QN:MICon 06-18-2022 Amikacin MARIA G [Susc] >100,000 cfu/ml Escherichia coli [facility] Work Phone: Amikacin MARIA G [Susc]on 2022 Escherichia coli Escherichia coli [facility] Work Phone: Absolute lymphocyte counton 01-18-2022 Lymphocytes Auto (Unsp spec) [#/Vol] 1.94 10*3/uL 0.83-4.51 [facility] Work Phone: Basophil percentageon 2021 Basophils/100 WBC (Bld) 0.6 % 0-1 [facility] Work Phone: Chloride [Moles/Vol] 107 mmol/L 98-107 [facility] Work Phone: Eosinophils/100 WBC (Bld) 0.8 % 0-5 [facility] Work Phone: Glucose [Mass/Vol] 109 mg/dL 74-106 [facility] Work Phone: Comment on above: Fasting Glucose resu lt from 100 to 125 mg/dL suggests IMPAIRED HOMEOSTASIS per A.D.A. criteria. Neutrophils (Bld) [#/Vol] 2.7 10*3/uL 2.0-7.7 [facility] Work Phone: Neutrophils/100 WBC (Bld) 51.0 % 47-70 [facility] Work Phone: Potassium [Moles/Vol] 3.4 mmol/L 3.5-5.1 [facility] Work Phone: Sodium [Moles/Vol] 141 mmol/L 136-145 [facility] Work Phone: WBC (Bld) [#/Vol] 5.2 10*3/uL 4.4-11.0 [facility] Work Phone: Blood erythrocytes count (nu mber/volume)on 01-18-2022 RBC (Bld) [#/Vol] 3.99 10*6/uL 4.2-5.4 [facility] Work Phone: Blood hemoglobin measurement (mass/volume)on 01-18-2022 Hemoglobin (Bld) [Mass/Vol] 11.5 g/dL 12.0-15.0 [facility] Work Phone: Blood lymphocytes/100 leukoc yteson 01-18-2022 Lymphocytes/100 WBC (Bld) 37.4 % 19-41 [facility] Work Phone: Blood monocytes/100 leukocyt eson 01-18-2022 Monocytes/100 WBC (Bld) 10.0 % 0-10 [facility] Work Phone: Blood platelet mean volumeon 01-18-2022 Platelet mean volume (Bld) [Entitic vol] 10.5 fL 6.2-12.0 [facility] Work Phone: Determination of erythrocyte mean corpuscular volume (MCV)on 01-18-2022 MCV (RBC) [Entitic vol] 89.0 fL 81-99 [facility] Work Phone: Hematocrit Auto (Bld) [Volum e fraction]on 01-18-2022 Hematocrit (Bld) [Volume fraction] 35.5 % 37-47 [facility] Work Phone: Laboratory - Chemistry and C hemistry - challengeon 01-18-2022 CO2 [Moles/Vol] 27.0 mmol/L 21.0-32.0 [facility] Work Phone: Urea nitrogen/Creatinine [Mass ratio] 20.9 mg/mg 10-20 [facility] Work Phone: Laboratory - Hematology and Cell countson 01-18-2022 Erythrocyte distribution width (RBC) [Entitic vol] 44.3 fL 35.1-43.9 [facility] Work Phone: Erythrocyte distribution width (RBC) [Ratio] 13.5 % 11.6-14.6 [facility] Work Phone: Immature granulocytes/100 WBC (Bld) 0.200 % 0.0-0.9 [facility] Work Phone: Comment on above: IG% - Immature Granu locytes (promyelocytes, myelocytes and metamyelocytes) > 1% indicates that a LEFT SHIFT is Present. MCH (RBC) [Entitic mass] 28.8 pg 27.0-32.0 [facility] Work Phone: [phone] Nucleated RBC/100 WBC (Bld) [Ratio] 0 % 0-5 [facility] Work Phone: [phone] MCHC Auto (RBC) [Mass/Vol]on 01-18-2022 MCHC (RBC) [Mass/Vol] 32.4 g/dL 32-36 [facility] Work Phone: No Panel Informationon 01-18 Estimated Creatinine Clearance Calc 66.80 ml/min [facility] Work Phone: [phone] Estimated GFR (MDRD) Amer 86 mL/min >60 [facility] Work Phone: [phone] Comment on above: GFR Calc Estimated GFR (MDRD) Non-Af Amer 71 mL/min >60 [facility] Work Phone: [phone] Comment on above: Non- GFR Calc Troponin I High Sensitivity 10 pg/mL 3.0-54.0 [facility] Work Phone: Comment on above: Please Note: New Michelle t Units and Gender Specific Reference Ranges. For more information see Policy Stat Procedure [place] High Sensitivity Troponin (TNIH) and attachments. Platelets bldon 01-18-2022 Platelets (Bld) [#/Vol] 235 10*3/uL 150-450 [facility] Work Phone: [phone] Serum or plasma calcium sue urement (mass/volume)on 01-18-2022 Calcium [Mass/Vol] 9.7 mg/dL 8.5-10.1 [facility] Work Phone: [phone] Serum or plasma creatinine m easurement (mass/volume)on 01-18-2022 Creatinine [Mass/Vol] 0.86 mg/dL 0.55-1.02 [facility] Work Phone: [phone] Comment on above: The validity of the calculated GFR & GFRAA in patients over 70 years has not been determined. Clinical correlation is essential. Serum or plasma urea nitroge n measurement (mass/volume)on 01-18-2022 Urea nitrogen [Mass/Vol] 18 mg/dL 7-18 [facility] Work Phone: Thin prep Papanicolaou smear with manual screeningon 01-18-2022 Thin prep Papanicolaou smear with manual screening 7 -15 [facility] Work Phone: LABORATORYOrdered By: Griselda Peralta on 01-08-2022 Albumin BCP dye [Mass/Vol] 3.9 G/dL Invalid Interpretation Code 3.4 - 4.8 G/dL AO ADM SS Albumin/Globulin [Mass ratio] 1.2 {ratio} Invalid Interpretation Code 1.1 - 2.5 ratio AO ADM SS ALP [Catalytic activity/Vol] 84 U/L Invalid Interpretation Code 40 - 135 U/L AO ADM SS ALT With P-5'-P [Catalytic activity/Vol] 28 U/L Invalid Interpretation Code 14 - 59 U/L AO ADM SS AST With P-5'-P [Catalytic activity/Vol] 19 U/L Invalid Interpretation Code 10 - 40 U/L AO ADM SS Bilirubin [Mass/Vol] 0.5 mg/dL Invalid Interpretation Code 0.2 - 1.0 mg/dL AO ADM SS Calcium [Mass/Vol] 8.8 mg/dL Invalid Interpretation Code 8.4 - 10.2 mg/dL AO ADM SS Chloride [Moles/Vol] 104 mmol/L Invalid Interpretation Code 98 - 107 mmol/L AO ADM SS Cholesterol [Mass/Vol] 243 mg/dL Invalid Interpretation Code 0 - 200 mg/dL AO ADM SS Cholesterol in HDL [Mass/Vol] 70 mg/dL Invalid Interpretation Code 40 - 60 mg/dL AO ADM SS Cholesterol in LDL [Mass/Vol] 155 mg/dL Invalid Interpretation Code 0 - 130 mg/dL AO ADM SS CO2 [Moles/Vol] 29 mmol/L Invalid Interpretation Code 23 - 31 mmol/L AO ADM SS Creatinine [Mass/Vol] 0.61 mg/dL Invalid Interpretation Code 0.55 - 1.02 mg/dL AO ADM SS Electrolyte Balance 9.0 mEq/L Invalid Interpretation Code 4.0 - 15.0 mEq/L AO ADM SS Globulin 3.2 G/dL Invalid Interpretation Code AO ADM SS Glucose [Mass/Vol] 96 mg/dL Invalid Interpretation Code 80 - 115 mg/dL AO ADM SS Potassium [Moles/Vol] 4.1 mmol/L Invalid Interpretation Code 3.5 - 5.1 mmol/L AO ADM SS Protein [Mass/Vol] 7.1 G/dL Invalid Interpretation Code 6.4 - 8.2 G/dL AO ADM SS Sodium [Moles/Vol] 142 mmol/L Invalid Interpretation Code 136 - 145 mmol/L AO ADM SS Triglyceride [Mass/Vol] 91 mg/dL Invalid Interpretation Code 0 - 150 mg/dL AO ADM SS TSH Qn 2.25 m[IU]/L Invalid Interpretation Code 0.36 - 3.74 mcIU/mL AO ADM SS Urea nitrogen [Mass/Vol] 15 mg/dL Invalid Interpretation Code 7 - 18 mg/dL AO ADM SS Urea nitrogen/Creatinine [Mass ratio] 25 ratio Invalid Interpretation Code 7 - 27 ratio AO ADM SS LABORATORYOrdered By: Neha Meza on 01-08-2022 Basophil, Absolute 0.0 103/mcL Invalid Interpretation Code 0.0 - 0.2 10^3/mcL AO Workflow SS Basophils/100 WBC (Bld) 0.6 % Invalid Interpretation Code 0.0 - 2.5 % AO Workflow SS Eosinophil, Absolute 0.1 103/mcL Invalid Interpretation Code 0.0 - 0.4 10^3/mcL AO Workflow SS Eosinophils/100 WBC (Bld) 1.3 % Invalid Interpretation Code 0.0 - 7.0 % AO Workflow SS Erythrocyte distribution width (RBC) [Ratio] 14.5 % Invalid Interpretation Code 11.5 - 14.5 % AO Workflow SS Hematocrit (Bld) [Volume fraction] 35.3 % Invalid Interpretation Code 37.0 - 47.0 % AO Workflow SS Hemoglobin (Bld) [Mass/Vol] 12.0 G/dL Invalid Interpretation Code 12.0 - 16.0 G/dL AO Workflow SS Lymphocyte, Absolute 1.7 103/mcL Invalid Interpretation Code 0.8 - 3.9 10^3/mcL AO Workflow SS Lymphocytes/100 WBC (Bld) 41.3 % Invalid Interpretation Code 10.0 - 50.0 % AO Workflow SS MCH (RBC) [Entitic mass] 29.1 pg Invalid Interpretation Code 27.0 - 31.2 pg AO Workflow SS MCHC 34.0 G/dL Invalid Interpretation Code 33.0 - 37.0 G/dL AO Workflow SS MCV (RBC) [Entitic vol] 85.8 fL Invalid Interpretation Code 80.0 - 94.0 fL AO Workflow SS Monocyte, Absolute 0.5 103/mcL Invalid Interpretation Code 0.2 - 1.0 10^3/mcL AO Workflow SS Monocytes/100 WBC (Bld) 11.6 % Invalid Interpretation Code 1.7 - 13.0 % AO Workflow SS Neutrophil, Absolute 1.9 103/mcL Invalid Interpretation Code 2.9 - 6.2 10^3/mcL AO Workflow SS Neutrophils/100 WBC (Bld) 45.2 % Invalid Interpretation Code 37.0 - 80.0 % AO Workflow SS Platelet mean volume (Bld) [Entitic vol] 8.8 fL Invalid Interpretation Code 7.4 - 10.4 fL AO Workflow SS Platelets (Bld) [#/Vol] 212 103/mcL Invalid Interpretation Code 130 - 400 10^3/mcL AO Workflow SS RBC (Bld) [#/Vol] 4.12 106/mcL Invalid Interpretation Code 4.20 - 5.40 10^6/mcL AO Workflow SS WBC 4.1 103/mcL Invalid Interpretation Code 4.6 - 10.8 10^3/mcL AO Workflow SS LABORATORYOrdered By: SYSTEM SYSTEM on 01-08-2022 GFR 121 ml/min/1.73sqm Invalid Interpretation Code AO Chemistry S GFR Non- 100 ml/min/1.73sqm Invalid Interpretation Code AO Chemistry S No Panel Informationon 10-17 Culture Urine >100,000 cfu/ml Gram Positive Rods non-spore forming Sensitivity testing is not recommended for one of the following reasons: 1. Established susceptibility patterns are available or 2. Interpretative criteria are not available. [facility] Work Phone: Vital Signs Date Time Vital Sign Value Performing Clinician Natalie gonzalez 12-01-2024 18:55-0400 Body temperature 98.6 [degF] [facility] 12-01-2024 18:55-0400 Diastolic blood pressure 64 mm[Hg] [facility] 12-01-2024 18:55-0400 Heart rate 67 /min [facility] 12-01-2024 18:55-0400 Respiratory rate 18 /min [facility] 12-01-2024 18:55-0400 SaO2% (BldA) [Mass fraction] 98 % [facility] 12-01-2024 18:55-0400 Systolic blood pressure 152 mm[Hg] [facility] 12-01-2024 15:37-0400 Body height 170.18 cm [facility] 12-01-2024 15:37-0400 Body mass index (BMI) [Ratio] 26.5 kg/m2 [facility] 12-01-2024 15:37-0400 Body weight 76.91 kg [facility] 04-07-2023 13:50-0500 Body height 170.18 cm PUBLIC RELATIONS COORDINATOR-C Carmen Brannon PUBLIC RELATIONS COORDINATOR Work Phone: [facility] 04-07-2023 13:50-0500 Body mass index (BMI) [Ratio] 26.3 kg/m2 PUBLIC RELATIONS COORDINATOR-C Carmen Brannon PUBLIC RELATIONS COORDINATOR Work Phone: [facility] 04-07-2023 13:50-0500 Body weight 76.2 kg PUBLIC RELATIONS COORDINATOR-C Carmen Brannon PUBLIC RELATIONS COORDINATOR Work Phone: [facility] 04-07-2023 13:50-0500 Diastolic blood pressure 75 mm[Hg] PUBLIC RELATIONS COORDINATOR-C Carmen Brannon PUBLIC RELATIONS COORDINATOR Work Phone: [facility] 04-07-2023 13:50-0500 Respiratory rate 16 /min PUBLIC RELATIONS COORDINATOR-C Carmen Brannon PUBLIC RELATIONS COORDINATOR Work Phone: [facility] 04-07-2023 13:50-0500 Systolic blood pressure 125 mm[Hg] PUBLIC RELATIONS COORDINATOR-C Carmen Brannon PUBLIC RELATIONS COORDINATOR Work Phone: [facility] 02-25-2023 08:29-0400 Body mass index (BMI) [Ratio] 27.2 kg/m2 PUBLIC RELATIONS COORDINATOR-C Carmen Brannon PUBLIC RELATIONS COORDINATOR Work Phone: [facility] 02-25-2023 08:29-0400 Body weight 78.92 kg PUBLIC RELATIONS COORDINATOR-C Carmen Brannon PUBLIC RELATIONS COORDINATOR Work Phone: [facility] 02-25-2023 08:29-0400 Diastolic blood pressure 71 mm[Hg] PUBLIC RELATIONS COORDINATOR-C Carmen Brannon PUBLIC RELATIONS COORDINATOR Work Phone: [facility] 02-25-2023 08:29-0400 Heart rate 67 /min PUBLIC RELATIONS COORDINATOR-C Carmen Brannon PUBLIC RELATIONS COORDINATOR Work Phone: [facility] 02-25-2023 08:29-0400 Respiratory rate 18 /min PUBLIC RELATIONS COORDINATOR-C Carmen Brannon PUBLIC RELATIONS COORDINATOR Work Phone: [facility] 02-25-2023 08:29-0400 SaO2% (BldA) [Mass fraction] 100 % PUBLIC RELATIONS COORDINATOR-C Carmen Brannon PUBLIC RELATIONS COORDINATOR Work Phone: [facility] 02-25-2023 08:29-0400 Systolic blood pressure 120 mm[Hg] PUBLIC RELATIONS COORDINATOR-C Carmen Brannon PUBLIC RELATIONS COORDINATOR Work Phone: [facility] 09-05-2022 12:58-0400 Body height 170.18 cm PUBLIC RELATIONS COORDINATOR-C Carmen Brannon PUBLIC RELATIONS COORDINATOR Work Phone: [facility] 09-05-2022 12:58-0400 Body mass index (BMI) [Ratio] 26.6 kg/m2 PUBLIC RELATIONS COORDINATOR-C Carmen Brannon PUBLIC RELATIONS COORDINATOR Work Phone: [facility] 09-05-2022 12:58-0400 Body weight 77.11 kg PUBLIC RELATIONS COORDINATOR-C Carmen Brannon PUBLIC RELATIONS COORDINATOR Work Phone: [facility] 09-05-2022 12:58-0400 Diastolic blood pressure 80 mm[Hg] PUBLIC RELATIONS COORDINATOR-C Carmen Brannon PUBLIC RELATIONS COORDINATOR Work Phone: [facility] 09-05-2022 12:58-0400 Heart rate 78 /min PUBLIC RELATIONS COORDINATOR-C Carmen Brannon PUBLIC RELATIONS COORDINATOR Work Phone: [facility] 09-05-2022 12:58-0400 Respiratory rate 16 /min PUBLIC RELATIONS COORDINATOR-C Carmen Brannon PUBLIC RELATIONS COORDINATOR Work Phone: [facility] 09-05-2022 12:58-0400 Systolic blood pressure 171 mm[Hg] PUBLIC RELATIONS COORDINATOR-C Carmen Brannon PUBLIC RELATIONS COORDINATOR Work Phone: [facility] 06-03-2022 09:07-0500 Body temperature 98.9 [degF] PUBLIC RELATIONS COORDINATOR-C Carmen Brannon PUBLIC RELATIONS COORDINATOR Work Phone: [facility] 06-03-2022 09:07-0500 Heart rate 67 /min PUBLIC RELATIONS COORDINATOR-C Carmen Brannon PUBLIC RELATIONS COORDINATOR Work Phone: [facility] 06-03-2022 09:07-0500 Respiratory rate 16 /min PUBLIC RELATIONS COORDINATOR-C Carmen Brannon PUBLIC RELATIONS COORDINATOR Work Phone: [facility] 06-03-2022 09:07-0500 SaO2% (BldA) [Mass fraction] 98 % PUBLIC RELATIONS COORDINATOR-C Carmen Brannon PUBLIC RELATIONS COORDINATOR Work Phone: [facility] 04-25-2022 11:57-0500 Diastolic blood pressure 75 mm[Hg] PUBLIC RELATIONS COORDINATOR-C Carmen Brannon PUBLIC RELATIONS COORDINATOR Work Phone: [facility] Work Phone: 04-25-2022 11:57-0500 Heart rate 66 /min PUBLIC RELATIONS COORDINATOR-C Carmen Brannon PUBLIC RELATIONS COORDINATOR Work Phone: [facility] Work Phone: 04-25-2022 11:57-0500 Respiratory rate 16 /min PUBLIC RELATIONS COORDINATOR-C Carmen Brannon PUBLIC RELATIONS COORDINATOR Work Phone: [facility] Work Phone: 04-25-2022 11:57-0500 SaO2% (BldA) [Mass fraction] 95 % PUBLIC RELATIONS COORDINATOR-C Carmen Brannon PUBLIC RELATIONS COORDINATOR Work Phone: [facility] Work Phone: 04-25-2022 11:57-0500 Systolic blood pressure 132 mm[Hg] PUBLIC RELATIONS COORDINATOR-C Carmen Brannon PUBLIC RELATIONS COORDINATOR Work Phone: [facility] Work Phone: 04-25-2022 10:45-0500 Body temperature 97.8 [degF] PUBLIC RELATIONS COORDINATOR-C Carmen Brannon PUBLIC RELATIONS COORDINATOR Work Phone: [facility] Work Phone: 04-25-2022 06:34-0500 Body height 170.18 cm PUBLIC RELATIONS COORDINATOR-C Carmen Brannon PUBLIC RELATIONS COORDINATOR Work Phone: [facility] Work Phone: 04-25-2022 06:34-0500 Body mass index (BMI) [Ratio] 26.6 kg/m2 PUBLIC RELATIONS COORDINATOR-C Carmen Brannon PUBLIC RELATIONS COORDINATOR Work Phone: [facility] Work Phone: 04-25-2022 06:34-0500 Body weight 77 kg PUBLIC RELATIONS COORDINATOR-C Carmen Brannon PUBLIC RELATIONS COORDINATOR Work Phone: [facility] Work Phone: 03-05-2022 11:08-0400 Body mass index (BMI) [Ratio] 26.7 kg/m2 PUBLIC RELATIONS COORDINATOR-C Carmen Brannon PUBLIC RELATIONS COORDINATOR Work Phone: [facility] Work Phone: 03-05-2022 11:08-0400 Body temperature 98.3 [degF] PUBLIC RELATIONS COORDINATOR-C Carmen Brannon PUBLIC RELATIONS COORDINATOR Work Phone: [facility] Work Phone: 03-05-2022 11:08-0400 Body weight 77.56 kg PUBLIC RELATIONS COORDINATOR-C Carmen Brannon PUBLIC RELATIONS COORDINATOR Work Phone: [facility] Work Phone: 03-05-2022 11:08-0400 Diastolic blood pressure 76 mm[Hg] PUBLIC RELATIONS COORDINATOR-C Carmen Brannon PUBLIC RELATIONS COORDINATOR Work Phone: [facility] Work Phone: 03-05-2022 11:08-0400 Heart rate 66 /min PUBLIC RELATIONS COORDINATOR-C Carmen Brannon PUBLIC RELATIONS COORDINATOR Work Phone: [facility] Work Phone: 03-05-2022 11:08-0400 Respiratory rate 16 /min PUBLIC RELATIONS COORDINATOR-C aCrmen Brannon PUBLIC RELATIONS COORDINATOR Work Phone: [facility] Work Phone: 03-05-2022 11:08-0400 SaO2% (BldA) [Mass fraction] 97 % PUBLIC RELATIONS COORDINATOR-C Carmen Brannon PUBLIC RELATIONS COORDINATOR Work Phone: [facility] Work Phone: 03-05-2022 11:08-0400 Systolic blood pressure 178 mm[Hg] PUBLIC RELATIONS COORDINATOR-C Carmen Brannon PUBLIC RELATIONS COORDINATOR Work Phone: [facility] Work Phone: 01-18-2022 19:25-0400 Diastolic blood pressure 78 mm[Hg] [facility] Work Phone: 01-18-2022 19:25-0400 Respiratory rate 18 /min [facility] Work Phone: 01-18-2022 19:25-0400 Systolic blood pressure 152 mm[Hg] [facility] Work Phone: 01-18-2022 18:09-0400 Heart rate 64 /min [facility] Work Phone: 01-18-2022 18:09-0400 SaO2% (BldA) [Mass fraction] 99 % [facility] Work Phone: 01-18-2022 16:12-0400 Body height 170.18 cm [facility] Work Phone: 01-18-2022 16:12-0400 Body mass index (BMI) [Ratio] 25.7 kg/m2 [facility] Work Phone: 01-18-2022 16:12-0400 Body temperature 97.5 [degF] [facility] Work Phone: 01-18-2022 16:12-0400 Body weight 74.38 kg [facility] Work Phone: Encounters Encounter Date Encounter Type Care Provider Facility Start: 01-19-2025 Encounter for genera l adult medical examination without abnormal findings Mena Britton NP [facility] Start: 01-19-2025 ambulatory Mena Britton NP Fa cility:[facility] Start: 12-14-2024 ambulatory Mena Britton NP Fa cility:[facility] Start: 12-01-2024 End: 12-01-2024 Emergency department patient visit Mena Britton -Emergency Department Work Phone: Start: 11-08-2024 Non-patient / Non-visit Dr. Thelma maya MD -[facility] Work Phone: Start: 11-04-2024 End: 11-04-2024 ambulatory MENA BRITTON COMMUNITY SERVICE PATROL OFFICER-NUTRITION WORKER Facility:[facility] Start: 11-04-2024 End: 11-04-2024 Patient encounter procedure MENA BRITTON COMMUNITY SERVICE PATROL OFFICER-NUTRITION WORKER [facility] Start: 09-20-2024 End: 09-20-[address] Thelma Kwon [facility] Work Phone: Start: 09-20-2024 End: 09-20-2024 ambulatory Thelma Kwon Facility:[facility] Start: 04-28-2024 End: 04-28-2024 ambulatory Mahesh Hoyt Facility:[facility] Start: 11-26-2023 End: 11-30-2023 ambulatory LOUEDA RONIT COMMUNITY SERVICE PATROL OFFICER-NUTRITION WORKER Facility:[facility] Start: 11-26-2023 End: 11-30-2023 Outreach Lab LOUEDA RONIT COMMUNITY SERVICE PATROL OFFICER-NUTRITION WORKER [facility] Start: 08-05-2023 End: 08-05-2023 ambulatory MENA BRITTON COMMUNITY SERVICE PATROL OFFICER-NUTRITION WORKER Facility:[facility] Start: 08-05-2023 End: 08-05-2023 Patient encounter procedure MENA BRITTON COMMUNITY SERVICE PATROL OFFICER-NUTRITION WORKER [facility] Start: 07-16-2023 End: 07-16-2023 ambulatory MENA BRITTON COMMUNITY SERVICE PATROL OFFICER-NUTRITION WORKER Facility:[facility] Start: 07-16-2023 End: 07-16-2023 Patient encounter procedure MENA BRITTON COMMUNITY SERVICE PATROL OFFICER-NUTRITION WORKER [facility] Start: 06-04-2023 End: 06-04-2023 ambulatory GIANCARLO Bin JOEY Facility:[facility] Start: 06-01-2023 End: 03-15-2024 Telephone encounter Amarilys Demarco PA-C Work Phone: General Surgery Comment on above: 06/04/2023 [facility] Start: 06-01-2023 End: 06-01-2023 ambulatory AMARILYS DEMARCO Facility:[facility] Start: 04-14-2023 End: 04-14-2023 ambulatory PUBLIC RELATIONS COORDINATOR-C Carmen Brannon PUBLIC RELATIONS COORDINATOR Work Phone: [facility] Work Phone: Start: 04-14-2023 End: 04-14-2023 Patient encounter procedure PUBLIC RELATIONS COORDINATOR-C Carmen Brannon PUBLIC RELATIONS COORDINATOR Work Phone: [facility]-Radiology, [facility] Work Phone: Start: 04-07-2023 End: 04-07-2023 Patient encounter procedure PUBLIC RELATIONS COORDINATOR-C Carmen Brannon PUBLIC RELATIONS COORDINATOR Work Phone: [facility] Work Phone: Start: 02-25-2023 End: 02-25-2023 Patient encounter procedure PUBLIC RELATIONS COORDINATOR-C Carmen Brannon PUBLIC RELATIONS COORDINATOR Work Phone: [facility] Work Phone: Start: 01-02-2023 End: 01-02-2023 ambulatory MENA BRITTON [employer] SERVICE PATROL OFFICER-NUTRITION WORKER Facility:[facility] Start: 01-02-2023 End: 01-02-2023 Patient encounter procedure MENA BRITTON [employer] SERVICE PATROL OFFICER-NUTRITION WORKER [facility] Start: 12-09-2022 End: 12-13-2022 ambulatory JOYA SHARP COMMUNITY SERVICE PATROL OFFICER-NUTRITION WORKER Facility:[facility] Start: 09-17-2022 End: 09-17-2022 ambulatory PUBLIC RELATIONS COORDINATOR-C Carmen Brannon PUBLIC RELATIONS COORDINATOR Work Phone: [facility] Work Phone: Start: 09-17-2022 End: 09-17-2022 Patient encounter procedure PUBLIC RELATIONS COORDINATOR-C Carmen Brannon PUBLIC RELATIONS COORDINATOR Work Phone: [facility] Start: 09-05-2022 End: 09-05-2022 Patient encounter procedure PUBLIC RELATIONS COORDINATOR-C Carmen Brannon PUBLIC RELATIONS COORDINATOR Work Phone: [facility] Start: 09-02-2022 Non-patient / Non-visit PUBLIC RELATIONS COORDINATOR-C Bin Brannon PUBLIC RELATIONS COORDINATOR Work Phone: [facility] Start: 07-26-2022 End: 07-30-2022 Outreach Lab ANNELISE DUARTE DO [facility] Start: 06-18-2022 End: 06-22-2022 Outreach Lab MENA BRITTON COMMUNITY SERVICE PATROL OFFICER-NUTRITION WORKER [facility] Start: 06-03-2022 End: 06-03-2022 Patient encounter procedure PUBLIC RELATIONS COORDINATOR-C Carmen Brannon PUBLIC RELATIONS COORDINATOR Work Phone: [facility] Start: 04-25-2022 End: 04-25-2022 Admission to same day surgery center PUBLIC RELATIONS COORDINATOR-C Carmen Brannon PUBLIC RELATIONS COORDINATOR Work Phone: [facility]-Surgical Day [facility] Start: 04-25-2022 End: 04-25-2022 ambulatory PUBLIC RELATIONS COORDINATOR-C Carmen Brannon PUBLIC RELATIONS COORDINATOR Work Phone: [facility] Work Phone: Start: 04-24-2022 Non-patient / Non-visit PUBLIC RELATIONS COORDINATOR-C Bin Brannon PUBLIC RELATIONS COORDINATOR Work Phone: [facility] Start: 03-05-2022 End: 03-05-2022 Patient encounter procedure PUBLIC RELATIONS COORDINATOR-C Carmen Brannon NP Work Phone: [facility] Start: 01-20-2022 Registered Referred PUBLIC RELATIONS COORDINATOR-C Rasheed Brannon PUBLIC RELATIONS COORDINATOR Work Phone: [facility]-Cardiovascular Services Start: 01-18-2022 End: 01-18-2022 Emergency department patient visit [facility]-Emergency Department Start: 01-08-2022 End: 01-08-2022 Patient encounter procedure CARMEN BRANNON COMMUNITY SERVICE PATROL OFFICER-NUTRITION WORKER [facility] Start: 10-17-2021 End: 10-21-2021 Outreach Lab KELLY KIMBLE COMMUNITY SERVICE PATROL OFFICER-NUTRITION WORKER [facility] Start: 08-02-2021 End: 08-02-2021 Patient encounter procedure CARMEN BRANNON COMMUNITY SERVICE PATROL OFFICER-NUTRITION WORKER [facility] Start: 03-26-2021 End: 03-26-2021 Patient encounter procedure THELMA KWON MD [facility] Procedures Date Procedure Procedure Detail Performing Clinician Start: 12-01-2024 Plain chest X-ray Mena Britton Start: 12-01-2024 X-ray of thoracic spine, three views Mena Britton Start: 12-01-2024 Estimated creatinine clearance Mena Britton Start: 09-20-2024 Complete ultrasound of kidneys and bladder Mena Britton Start: 06-04-2023 Colonoscopy Amarilys Demarco PAJj Work Phone: Start: 04-14-2023 [place] PUBLIC RELATIONS COORDINATOR-C Carmen Brannon PUBLIC RELATIONS COORDINATOR Work Phone: Start: 09-17-2022 Computed tomography of abdomen and pelvis with contrast PUBLIC RELATIONS COORDINATOR-C Carmen Brannon PUBLIC RELATIONS COORDINATOR Work Phone: Start: 04-25-2022 Excision of mass PUBLIC RELATIONS COORDINATOR-C Carmen Brannon PUBLIC RELATIONS COORDINATOR Work Phone: Start: 01-18-2022 CT of head without contrast Start: 01-18-2022 Plain chest X-ray Start: 09-18-2017 Esophagogastroduodenoscopy THELMA MOYA MD Start: 05-11-2012 Colonoscopy THELMA KWON MD Appendectomy THELMA WARD MD Plan of Treatment Date Care Activity Detail Author Start: 09-25-2035 RSV Vaccine (1 - 1-d ose 75+ series) RSV Vaccine (1 - 1-dose 75+ series) [facility] Start: 06-04-2028 Screening for malign ant neoplasm of colon [facility] Start: 12-01-2024 [facility] Start: 12-01-2024 [facility] Start: 01-10-2024 Covid-19 Vaccine ( season) Covid-19 Vaccine ( season) [facility] Start: 01-10-2024 Influenza vaccination Influenza Vacc ine (#1) [facility] Start: 04-25-2022 Patient discharge [facility] Work Phone: Start: 01-18-2022 [facility] Work Phone: Start: 10-28-2019 Screening for malign ant neoplasm of cervix Cervical Cancer Screening [facility] Start: 10-28-2015 Screening for malign ant neoplasm of breast Mammogram Screening [facility] Start: 2010 Shingrix Vaccine (1 of 2) Elliott grix Vaccine (1 of 2) [facility] Start: 2005 Diabetes Screening Diabetes Screenin g [facility] Start: 2005 Lipid panel Lipid Screening [facility] Start: 2005 Screening for malign ant neoplasm of colon [facility] Start: 09-25-1979 Urine microalbumin profile DTaP,Tdap,Td Vaccine (1 - Tdap) [facility] Start: 1978 Anxiety Screening Anxiety Screening [facility] Start: 1978 Depression Screening Depression Scre ening [facility] Start: 1978 Hepatitis C screening Hepatitis C Sc reening [facility] Start: 1978 HIV screening HIV Screening [facility] Patient Education [facility] Work Phone: Patient referral [facility] Work Phone: Payers Date Payer Category Payer Private Health Insurance [id number] 2024 Self-pay [id number] 2018 Unknown MMO MMO SUPERMED PPO [id number] 2018-Present [phone] [address] [place] [address] PPO [id number] 2015 Unknown [id number] 2015 Unknown [id number] 1960 Unknown [id number] 1960 Unknown [id number] 2..[id number] 1960 Unknown [id number] 2..[id number] 1960 Unknown [id number] 2..[id number] 1960 Unknown [id number] 2..[id number] 1960 Unknown [id number] [id number] 27 Unknown [facility] PACKAGE PLAN [id number] Unknown [id number] 62 Unknown [id number] [id number] 62 Unknown [id number] [id number] 62 Unknown [id number] [id number] 62 Unknown [id number] 62 Social History Date Type Detail Facility Start: 12-23-2018 End: 12-01-2024 Never smoked tobacco (finding) [facility] Comment on above: no smoke exposure Start: 1960 Sex Assigned At Female A [facility] Start: 01-18-2022 End: 04-07-2023 Tobacco smoking status INIS Unknown if ever smoked [facility] Start: 04-01-2019 Non-smoker [facility] Start: 06-01-2023 Tobacco use and exposure Smoke less tobacco non-user [facility] Start: 06-01-2023 Alcoholic beverage intake Current non-drinker of alcohol (finding) [facility] Start: 06-01-2023 End: 06-04-2023 History of Social function [facility] Start: 06-01-2023 End: 06-04-2023 Tobacco use panel [facility] National Score (1-10 0), lower number is lower risk 64 [facility] Start: 1960 Sex assigned at Not on file C [facility] Sexual Orientation [facility] Start: 11-03-2018 Sex Female (finding) [facility] Medical Equipment Procedure Code Equipment Code Equipment Original Text Equipment Identifier Dates Excision, mass Plant polysaccha ride haemostatic agent, bioabsorbable [id number] FDA Start: 04-25-2022 Excision, mass Plant polysaccha ride haemostatic agent, bioabsorbable [id number] FDA Start: 04-25-2022 Goals Date Patient Goal Desired Activity /State Mental Status Date Assessment Result Facility 04-25-[address] [facility] Work Phone: 04-25-2022 Cognitive function Patient Orien tation Person;Place;Time [facility] Work Phone: 01-18-2022 Cognitive function Level Of Cons ciousness Awake;Alert;Appropriate [facility] Work Phone: Clinical Notes 10-25-2021 to 12-01-2024 Note Date & Type Note Facility 12-01-2024 Discharge summary [facility] 12-01-2024 Radiology Diagnostic study note [facility] Imaging Services [address] [place], [place] [id number] Chest 1 View (Portable) MR#: [id number] Acct: [id number] Name: THELMA VINSON Rep #: [id number] : 1960 F 64 From: Sukh Salazar MD PCP: Mena Britton Status: REG ER Study:Chest 1 View (Portable) Date of Exam: 12/01/24 Exam# [id number] Ordering Dr: Mainor Portillo MD PROCEDURE: CHEST 1 VIEW (PORTABLE) 12/01/2024 REASON FOR EXAM: CHEST PAIN TECHNIQUE: Frontal view of the chest. COMPARISON: None. FINDINGS: The heart is normal in size. The lungs are clear. No pleural effusion or pneumothorax. No acute osseous abnormalities. RAD/Chest 1 View (Portable) IMPRESSION: No Acute Findings. Reading Location: [id number] CC: Dr. Mainor Portillo MD; Mena Britton ~ Tree Surgeon: Signed [facility] 12-01-2024 Radiology Diagnostic study note [facility] Imaging Services [address] [place] [id number] Thoracic Spine 3 Views MR#: [id number] Acct: [id number] Name: THELMA VINSON Rep #: [id number] : 1960 F 64 From: Sukh Salazar MD PCP: Mena Britton Status: REG ER Study:Thoracic Spine 3 Views Date of Exam: 12/01/24 Exam# [id number] Ordering Dr: Mainor Portillo MD PROCEDURE: THORACIC SPINE 3 VIEWS 12/01/2024 REASON FOR EXAM: PAIN TECHNIQUE: THORACIC SPINE 3 VIEWS COMPARISON: None. FINDINGS: No evidence of acute fracture or dislocation. Mild discogenic degenerative changes. S shaped scoliosis. RAD/Thoracic Spine 3 Views IMPRESSION: No acute osseous abnormalities. Reading Location: [id number] CC: Dr. Mainor Potrillo MD; Mena Britton ~ Tree Surgeon: Signed [facility] 12-01-2024 Discharge summary Note Date/Time December 01, 2024 6:48pm [facility] Medical Records Department [address] [place] [address] Emergency Department Summary 12/01/24 MR#: [id number] Acct: [id number] Name: THELMA VINSON Rep #:[id number] : 1960 64 From: Mainor Portillo MD PCP: Mena Britton Status:REG ER Location: ED HPI History of Present Illness Chief Complaint: Back Narrative Narrative: 64-year-old female past medical history of hypertension presents with her daughter because of thoracic back pain that she has had between her shoulder blades since Thursday, 4 days ago. Today, she began having anterior chest pain and heaviness. She denies any fevers or chills, no cough, no nausea or vomiting, no diaphoresis. She also had left arm pain. It is described more as dull and achy. Her back pain is relatively constant, and her chest pain that began todayat around 1030 approximately 5 hours ago is relatively constant as well. No recent falls or trauma. 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 Skin cancer, basal cell Heart murmur UTI (urinary tract infection) COVID-19 Home Medications ?Medication ?Instructions ?Recorded ?Last Taken ?Type thyroid (pork) 30 mg tablet 30 mg PO DAILY 03/14/16 History ([place] Thyroid) lisinopril 20 mg tablet 20 mg PO DAILY #90 tabs 04/1012/01/24 Rx hydrochlorothiazide 25 mg tablet 25 mg PO DAILY #90 ta bs 09/29/24 12/01/24 Rx Allergy/AdvReac Type Severity Reaction Status Date / Time NSAIDS (Non-Steroidal AdvReac Other Verified 12/01/24 15:38 Anti-Inflamma Family History Mother Angina at rest Hypertension Multiple lipomas Atrial fibrillation Father Angina at rest Diabetes Heart disease CABG CVA (cerebral vascular accident) Lymphoma CAD (coronary artery disease) 14 stents between heart, carotids, kidney Atrial fibrillation Brother Diabetes Heart disease Sister Lymphoma Uterine cancer Grandmother Cervical cancer Surgical History Status post excision of lipoma History of carpal tunnel release History of appendectomy Carpal tunnel syndrome Social History Smoking Status: Never smoker alcohol intake: never substance use type: does not use caffeine: Yes (Rarely) additional social history: Does Take Aspirin As Needed Does Take Ibuprofen As Needed ROS ROS ED ROS Narrative Review of systems positive for thoracic back pain worse with some movements, andtouching a small area. No fevers or chills, no nausea or vomiting. Positive chest achiness midsternal, pinpoint. No diaphoresis. Reported left arm heaviness as well. EXAM Physical Exam Narrative Exam Narrative: Afebrile. Vital signs noted. Nontoxic-appearing. Cardiovascular examination reveals a regular rate and rhythm. Lungs are clear to auscultation bilaterally. Abdomen is soft and nontender. Positive tenderness to palpation mid thoracic back between scapula. No step-off. Positive tenderness to palpation midsternalarea between breasts, no crepitance. Full range of motion bilateral upper extremities. Ambulatory in ED. Neurological examination nonfocal and nonlateralizing. Const Vital Signs: 12/01/24 15:37 12/01/24 16:30 Temperature 98.6 F Temperature Source Oral Pulse Rate 67 Respiratory Rate 18 Blood Pressure 152/64 H Blood Pressure Mean 93 Pulse Ox 98 Oxygen Delivery Method Room Air Room Air MDM MDM MDM Narrative Medical decision making narrative: The differential diagnosis includes but not limited to thoracic compression fracture versus musculoskeletal back pain/thoracic strain versus ACS/unstable angina. History and physical does not necessarily support ACS. Comprehensive workup was pursued. She has not had a fall so I have lower suspicion for thoracic compression fracture. X-rays will be obtained of the thoracic spine torule out fracture. EKG was obtained and interpreted by myself independently as normal sinus rhythm with sinus arrhythmia at [address] changes. No STEMI. Chest x-ray in 1 view interpreted by myself independently shows no evidence of an acute process, no pneumonia or pneumothorax. I reviewed the radiology report which confirms my independent interpretation. On my individual interpretation of the thoracic spine x-rays, there is no evidence of compression fracture. I reviewedthe radiology report as well, which once again confirms my independent interpretation. In review of her laboratory work she has normal white count of 6.1, hemoglobin 13.2 with hematocrit normal at 38.0, platelet count 211. BMP is grossly unremarkable with normal sodium and potassium. Glucose 91. Initial high-sensitivity troponin is less than 6. Upon repeat examination, she feels that her chest tightness and dull achiness could have been from either the heat or inhalation of certain fumes. I did offer her analgesics for her back pain, but she declined. She has an intolerance to NSAIDs, and she was also offered Tylenol or something stronger/narcotic but she declined. As long as her second high-sensitivity troponin at 2 hours is within acceptable delta, I do feel that she can be discharged to follow-up with her primary care provider. Her second high-sensitivity troponin is 7 for an acceptable delta troponin. I feel she has been ruled out for ACS with biomarkers. Upon repeat examination, she remains resting comfortably on the cot. She is declining any prescriptions for analgesia. Return instructions were reviewed. Disposition isdischarged home in stable condition. History & Record Review Discussion w/independent historian: Patient Additional record(s) reviewed:: Prior ED visit (Last visit 2021) Lab Data Attestation: I reviewed the patient's lab results. Labs: Laboratory Results - last 24 hr 12/01/24 12/01/24 16:26 18:14 WBC 6.1 RBC 4.30 Hgb 13.2 Hct 38.0 MCV 88.4 MCH 30.7 MCHC 34.7 RDW Std Deviation 40.6 RDW Coeff of Lynn 12.5 Plt Count 211 MPV 10.2 Immature Gran % (Auto) 0.200 Neut % (Auto) 57.9 Lymph % (Auto) 31.0 Jessamine % (Auto) 9.5 Eos % (Auto) 0.7 Baso % (Auto) 0.7 Absolute Neuts (auto) 3.5 Absolute Lymphs (auto) 1.89 Nucleated RBC % 0 Sodium 138 Potassium 3.6 Chloride 102 Carbon Dioxide 23.9 Anion Gap 13 BUN 16 Creatinine 0.95 Estim Creat Clear Calc 63.96 Est GFR (MDRD) Non-Af 67 BUN/Creatinine Ratio 17.1 Glucose 91 Calcium 9.4 Troponin T High Sens < 6 Troponin T Hi Sens 2 Hr 7 Radiography Chest X-Ray - ED: 1 View, Read by ED Physician, Read by Radiologist and No AcuteDisease X-Ray: T-Spine, Read by ED Physician, Read by Radiologist, No Fracture and Normal Bony Alignment Diagnostic Testing: Clinical Impression(s) from Imaging Studies Chest X-Ray 12/01/24 16:37 IMPRESSION: No Acute Findings. Reading Location: [facility] Thoracic Spine X-Ray 12/01/24 16:37 IMPRESSION: No acute osseous abnormalities. Reading Location: [facility] Discharge Plan Triage Chief Complaint: Back ED Provider: Mainor Portillo Dx/Rx/DC Orders Clinical Impression: Thoracic back pain, Chest pain Instructions: ED Back Pain (Acute or Chronic), ED Chest Pain, Uncertain Cause, ED Pain, Acute, Uncertain Cause Prescriptions: No Action lisinopril 20 mg tablet 20 mg PO DAILY Qty: 90 3RF thyroid (pork) [[place] Thyroid] 30 MG tablet 30 mg PO DAILY hydrochlorothiazide 25 mg tablet 25 mg PO DAILY Qty: 90 3RF Primary Care Provider: Mena Britton Referrals: Mena Britton [Primary Care Provider] - 3-5 Days if not improving Activity Restrictions/Additional Instructions: Return with increasing pain, new or worsening symptoms. Follow-up with your primary care provider. Print Language: Polish Disposition Disposition: Home, Self Care What to do if you have Problems For any increased pain, shortness of breath, bleeding, nausea or vomiting, chestpain, or any unexpected problems, contact your Primary Care Provider. Call [facility] ([phone]) or report to the closest Emergency Room. Call 911 if necessary. 12/01/241847 <Electronically signed by Mainor Portillo MD> Cosigner Signature (if applicable): CC: Mena Britton ~ Signed [facility] Work Phone: 1(553) 124-776106-27-2025 Note* Exam Date Time Procedure Performing Provider Status 11/04/24 8:24 AM MA Mammo Screening B ilateral w/EDMOND Hernandez MD; Auth (Verified) [id number] ORIGINAL FROM: [address] [address] PROCEDURE FOR: THELMA VINSON [address] [place] [address] Home: PID#: [id number] Exam#: [id number] : 1960 Age: 64 TO: MENA BRITTON APRN [address] [address] Fax: NO FAX EXAMINATION: SCREENING DIGITAL BILATERAL MAMMOGRAM WITH TOMOSYNTHESIS, 11/04/2024 8:03 am TECHNIQUE: Screening mammography of the bilateral breasts was performed with tomosynthesis. 2D standard and 3D tomosynthesis combination imaging performed through both breasts in the MLO and CC projection. Computer aided detection was utilized in the interpretation of this exam. COMPARISON: 08/05/2023, 07/24/2022 HISTORY: Breast cancer screening. FINDINGS: BREAST DENSITY: There are scattered areas of fibroglandular density. There are no significant masses or calcifications. IMPRESSION: No mammographic evidence of malignancy. Continued screening with annual mammograms is recommended. [facility] risk calculations, generated with the history provided, report this patient's 10 year risk and lifetime risk for developing breast cancer at 2.8% and 6.0%, respectively. Based on this assessment tool, if the patient's calculated lifetime risk is below 20%, then the patient is considered at average risk for developing breast cancer. If the patient's calculated lifetime risk is at or above 20%, then the patient is considered high risk for developing breast cancer and may be a candidate for supplemental breast MRI screening in addition to annual mammographic screening per the [place] [employer]. BIRADS: BI-RADS: 1: Negative RECALL: 1 year screening RECALL TYPE: mammo LETTER SENT: Normal BI-RADS 1 and 2 Interpreted by: Edmond Peck MD Preliminary Report By: Edmond Peck MD Electronically signed By Edmond Peck MD Dictated Date: 11/04/2024 11:01:37 AM Prelim Date: 11/04/2024 11:05:23 AM Sign Date: 11/04/2024 11:05:23 AM Ordering Provider: MENA BRITTON Interpreted by: Edmond Peck MD Preliminary Report By: Edmond Peck MD Electronically signed By Edmond Peck MD Dictated Date: 11/04/2024 11:01:37 AM Prelim Date: 11/04/2024 11:05:23 AM Sign Date: 11/04/2024 11:05:23 AM Ordering Provider: MENA BRITTON Sulphate Tester: JOÃO LEBLANC RT(R)(CT) letter sent: Normal BI-RADS 1 and 2 Mammogram BI-RADS: 1 Negative [facility]06-11-2025 Evaluation + Plan note Future Scheduled Tests Laboratory* Thyroid Stimulating Hormone 10/19/24 * Free T4 10/19/24 * Complete Blood Count 10/19/24 * Complete Metabolic Panel 10/19/24 [facility] 07-20-2024 Note. MICRO - Microbiology PROCEDURE: Urine Culture [*1] SOURCE: Urine, Clean Catch BODY SITE: COLLECTED DATE/TIME: 11/26/2023 15:41 EDT RECEIVED DATE/TIME: 11/26/2023 18:51 EDT START DATE/TIME: 11/26/2023 18:51 EDT FREE TEXT SOURCE: FINAL REPORTS Final Report [] Verified Date/Time/Personnel: 11/28/2023 08:29 EDT No growth at 48 hours. PRELIMINARY REPORTS Preliminary Report [] Verified Date/Time/Personnel: 11/27/2023 10:39 EDT No growth to date Performing Locations *1: This test was performed at: [facility], [address] [place] [address], [facility] , [facility] (ID)06-01-2023 Telephone encounter Note* Telephone Encounter - Perla Warren - 06/01/2023 1:32 PM EST Patient called in asking to be scheduled this 06/04/2023 instead Perla Warren Assistant Infant Toddler Teacher [facility]01-22-2024 Miscellaneous Notes* Telephone Encounter - Perla Warren - 06/01/2023 1:32 PM EST Patient called in asking to be scheduled this 06/04/2023 instead Perla Warren Assistant Infant Toddler Teacher * Telephone Encounter - Perla Warren - 06/01/2023 9:11 AM EST 06/18/2023 COLON ASC Patient to do 2 day clear fluid prep with Keila Panda please place [facility] Telephone encounter Note * Telephone Encounter - Sharri Warrenanna - 06/01/2023 9:11 AM EST 06/18/2023 COLON ASC Patient to do 2 day clear fluid prep with Keila Panda please place order [facility]01-22-2024 NoteHNO ID: [id number] Author: AMARILYS DEMARCO PA-C Service: ? Author Type: Physician [employer] Shop Helper Type: Progress Notes Filed: 06/01/2023 10:49 Note Text: HISTORY AND PHYSICAL Thelma Moreno Karel 1960 REFERRING PHYSICIAN: No ref. provider found CHIEF COMPLAINT: Consult (Screening for colon cancer) HPI: The patient is a 62 year old female referred for endoscopy. Thelma notes no colon complaints currently. Patient denies any change in bowel habits, weight changes, blood in stools, black tarry stools or abdominal pain. Denies family history of colon issues. The patient notes no upper GI complaints. Thelma has undergone prior endoscopy. Most recent colonoscopy was March [address] Wisdom with 5 year follow-up recommended due to adenomatous polyp. Patient notes was also told her bowel prep was suboptimal at that time. Patient denies chest pain, shortness of breath or recent hospitalizations. Denies problems with sedation in the past. PAST MEDICAL HISTORY Diagnosis Date Dysuria Essential hypertension Hypothyroidism Multiple thyroid nodules PAST SURGICAL HISTORY Procedure Laterality Date APPENDECTOMY 1975 CARPAL TUNNEL Right 2014 COLONOSCOPY FLX DX W/COLLJ SPEC WHEN PFRMD 04/28/2008 Colonoscopy COLONOSCOPY W/BIOPSY SINGLE/MULTIPLE 04/04/2019 Current Outpatient Medications Medication Sig metoprolol succinate ER (TOPROL XL) 50 mg 24 hr tablet Take 50 mg by mouth once daily. amLODIPine (NORVASC) 10 mg tablet Take 10 mg by mouth once daily. FIBER CHOICE ORAL Take 4 capsules by mouth once daily. lisinopril (ZESTRIL, PRINIVIL) 10 mg tablet Take 10 mg by mouth once daily. hydroCHLOROthiazide (HYDRODIURIL, ESIDRIX) 25 mg tablet PUBLIC RELATIONS COORDINATOR THYROID 30 mg tablet multivitamin tablet Take 1 tablet by mouth once daily. (Patient not taking: Reported on 06/01/2023) No current facility-administered medications for this visit. ALLERGIES: Nsaids (Non-Steroidal Anti-Inflammatory Drug) PERSONAL HISTORY: Social History Tobacco Use Smoking status: Never Smokeless tobacco: Never Vaping Use Vaping Use: Never used Substance Use Topics Alcohol use: No Drug use: No FAMILY HISTORY: FAMILY HISTORY Problem Relation Age of Onset Heart Father Diabetes Father Cancer Sister Half Sister: Ovarian other (NON HODGEKIN) Sister Heart Brother Diabetes Brother Cancer Maternal Grandmother Ovarian/Uterine REVIEW OF SYMPTOMS: The review of systems data was entered by the nurse and reviewed by mn Nursing Notes: Julisa Silveira LPN 06/01/2023 8:44 AM Signed REVIEW OF SYSTEMS: General: The patient denies fatigue, denies weight loss, denies weight gain, denies feeling hot, and denies feelings of cold. Eyes: The patient denies glaucoma, denies eye injury/surgery, does not wear glasses or contacts. Ear/Nose/Throat: The patient NOTES allergies, denies hayfever, denies ear infections, and denies bloody noses. Cardiovascular: The patient denies chest pain, denies heart disease, NOTES high blood pressure,denies cardiac stent, denies prior heart attack, denies irregular heart beat, denies high cholesterol, denies poor circulation, denies heart failure, other cardiac issues, denies claudication, denies cold feet, denies peripheral arterial stent. Respiratory: The patient denies tuberculosis, denies pneumonia, denies frequent cough, denies pulmonary embolism, denies shortness of breath, and denies coughing up blood. Gastrointestinal: The patient denies difficulty swallowing, denies acid reflux, denies ulcers, denies vomiting, denies jaundice/hepatitis, denies gallbladder problems, denies black or tarry stools, denies hemorrhoids, denies bleeding from rectum, denies diverticulitis, denies constipation, denies diarrhea, denies loss of stool control, and denies hernias. Kidney/Bladder: The patient denies kidney stones, denies urine infections, and denies bloody urine. Skin: The patient NOTES a history of skin cancer, denies bleeding/changing moles, and denies a history of skin rash. Neurologic: The patient denies a history of epilepsy/convulsions, denies headaches, denies head/spinal injuries, and denies stroke/TIA. Psychiatric: The patient denies psychiatric medications, denies depression, and denies voices, denies substance abuse. Endocrine: The patient NOTES thyroid disorders, denies diabetes, and denies hormonal problems. Hematologic: The patient denies a history of bruising, denies bleeding, and denies anemia, denies blood clots. Infections: The patient denies a history of measles and mumps, denies rheumatic fever, and denies sexually transmitted diseases. Musculoskeletal: The patient denies back pain/injury, denies back problems, denies sciatica, denies knee/foot trouble, denies arthritis, or denies gout. When was patient's last Mammogram screening? 2022 Last Colonoscopy: 2019 Julisa Silveira LPN I have confirmed and edited as necessary, the PFSH and ROS obtained by (more content not included)...[facility]12-05-2023 Procedure note [facility]11-22-2023 Evaluation + Plan note Future Scheduled Tests Laboratory* Thyroid Stimulating Hormone 04/01/23 * Free T4 04/01/23 * Free T3 04/01/23 * anti-Thyroid Peroxidase 04/01/23 [facility] 08-25-2023 Note ORIGINAL EXAMINATION: XRAY VIEWS OF THE LUMBAR SPINE01/02/2023 10:40 am LUMBAR SPINE 2 or 3 VIEWS COMPARISON: None HISTORY: ORDERING SYSTEM PROVIDED HISTORY: Reason for Exam: burning in legs burning in legs. NKI/hx of prev. sx FINDINGS: Lumbar vertebrae are intact with normal height and alignment. Lumbar disc spaces are well preserved. The pedicles are intact. There is no appreciable degenerate facet arthropathy or spondylolysis. Sacrum and sacroiliac joints are normal. IMPRESSION: Normal three-view lumbar spine. Interpreted by: Calvin Darling Preliminary Report By: Calvin Darling Electronically signed By Calvin Darling Dictated Date: 01/02/2023 10:43:11 AM Prelim Date: 01/02/2023 10:43:55 AM Sign Date: 01/02/2023 10:43:55 AM Ordering Provider: MENA [facility]08-25-2023 Note ORIGINAL EXAMINATION: 3 XRAY VIEWS OF THE CERVICAL SPINE01/02/2023 10:38 am COMPARISON: None. HISTORY: ORDERING SYSTEM PROVIDED HISTORY: Reason for Exam: burning in upper arms, NKI/hx of prev sx. FINDINGS: No acute fractures, compression deformity, or visible aggressive osseous lesions. Slight anterolisthesis seen of C5 on C6. Mild multilevel degenerative changes with anterior disc osteophytes best seen at C6. Mild disc space narrowing at C6-C7. Intervertebral foraminal spaces not adequately assessed on lateral view. Mild facet arthropathy seen in the lower cervical spine. There is no prevertebral soft tissue swelling. The C1-C2 relationship is maintained. The visualized thoracic structures are unremarkable. IMPRESSION: No compression deformity or osseous abnormality. Mild multilevel degenerative changes. I have personally reviewed the images of this examination and agree with the resident's findings and interpretation. Interpreted by: Derrell Mederos MD Preliminary Report By: Rosa Seymour Electronically signed By Derrell Mederos MD Dictated Date: 01/02/2023 2:10:16 PM Prelim Date: 01/02/2023 2:41:08 PM Sign Date: 01/02/2023 2:41:08 PM Ordering Provider: [facility]08-02-2023 Note. MICRO - Microbiology PROCEDURE: Urine Culture [*1] SOURCE: Urine, Clean Catch BODY SITE: COLLECTED DATE/TIME: 12/09/2022 09:19 EDT RECEIVED DATE/TIME: 12/09/2022 14:38 EDT START DATE/TIME: 12/09/2022 14:38 EDT FREE TEXT SOURCE: FINAL REPORTS Final Report [] Verified Date/Time/Personnel: 12/10/2022 14:51 EDT <10,000 cfu/ml. No Significant growth. Sensitivity not indicated. Performing Locations *1: This test was performed at: [facility], [address] [place] [address], [id number] , [facility] (ID)10-25-2021 Evaluation + Plan note Future Scheduled Tests Laboratory* [place]inal[place] 10/25/21 * [facility] [place] Specimens[place]/09/22 Radiology* MA Mammo Screening Bilateral w/ Lupillo 06/18/22 * US Pelvis Non-OB W/Transvaginal 06/18/22 [facility] 06-17-2022 Evaluation + Plan note Future Scheduled Tests Laboratory* Urinalysis 10/25/21 * [facility] [place] ([place] Specimens) 01/09/22 [facility] Evaluation + Plan note No data available for this section [facility] Evaluation + Plan note Future Appointments Appointment Date:01/23/2022 07:30:00 AM Scheduled Provider:KEYANNA GRACIA DO Location:[facility] Appointment Type:PC Office Procedure OMT Appointment Date:02/05/2022 08:30:00 AM Scheduled Provider:CARMEN BRANNON Location:[facility] Appointment Type:PC OV Future Scheduled Tests Laboratory* Urinalysis 10/25/21 [facility] Evaluation + Plan note Future Appointments Appointment Date:07/22/2023 09:00:00 AM Scheduled Provider:MENA BRITTON Location:[facility] Appointment Type:PC Wellness Annual Diagnostic Tests Pending * Complete Metabolic Panel 07/16/23 * Thyroid Stimulating Hormone 07/16/23 * Free T4 07/16/23 Future Scheduled Tests Laboratory* Thyroid Stimulating Hormone 04/01/23 * Free T4 04/01/23 * Free T3 04/01/23 * anti-Thyroid Peroxidase 04/01/23 [facility] evaluation noteNo assessment information available [facility] Work Phone: evaluation note* Diagnosis Onset Date Resolution Status Dysesthesia chronic Personal history of skin cancer chronic Subcutaneous mass of abdominal wall chronic Subcutaneous mass of left lower extremity chronic Subcutaneous mass of left upper extremity chronic Subcutaneous mass of right lower extremity chronic Subcutaneous mass of right upper extremity chronic Dysesthesia chronic Personal history of skin cancer chronic Subcutaneous mass of left lower extremity chronic [facility] Work Phone: Evaluation note* Diagnosis Onset Date Resolution Status Dysesthesia chronic Personal history of skin cancer chronic Subcutaneous mass of left lower extremity chronic Subcutaneous mass of left upper extremity chronic Essential hypertension acute [facility] Work Phone: Evaluation note* Diagnosis Onset Date Resolution Status Essential hypertension acute Dysphagia acute Subcutaneous mass of right lower extremity chronic [facility] Work Phone: Hospital Discharge instructions No data available for this section [facility] Hospital Discharge instructions Additional Instructions Implant Used?: [facility] Work Phone: Hospital Discharge instructionsAdditional Instructions Return with increasing pain, new or worsening symptoms. Follow-up with your primary care provider.[facility] Work Phone: Progress note No data available for this section [facility] Reason for referral (narrative)No reason for referral information availableWSal[facility] Work Phone: Chief Complaint and Reason for Visit Chief Complaint HTN Chief Complaint HTN [employer] [place] Lipoma on leg EXC SOFT TISSUE MASS LEFT ANTERIOR THIGH EXC SOFT TISSUE MASS LEFT ANTERIOR THIGH Reason for Visit Dysesthesia Personal history of skin cancer Subcutaneous mass of abdominal wall Subcutaneous mass of left lower extremity Subcutaneous mass of left upper extremity Subcutaneous mass of right lower extremity Subcutaneous mass of right upper extremity Dysesthesia Personal history of skin cancer Subcutaneous mass of left lower extremity Chief Complaint POST OP CK Amb Documentation HTN (OKAY PER ENERGY BROKER) HTN, CREATININE 0.58 (ON 08/01/22) Reason for Visit Dysesthesia Personal history of skin cancer Subcutaneous mass of left lower extremity Subcutaneous mass of left upper extremity Essential hypertension Chief Complaint 3 M FU LIPOMA ON LEG AND DIFFICULTY SWALLOWING DYSPHAGIA Reason for Visit Essential hypertensi on Dysphagia Subcutaneous mass of right lower extremity Chief Complaint Admit Date RENAL MASS September 20, 2024 12:27 pm BACK December 01, 2024 3:36 pm Advance Directives No Advanced Directives Records Found Advance Directive Response Recorded Date/ Time Advance Directives No March 14, 2016 9:46am Living Will No January 18, 2022 4:39pm Power of Architect [employer] No January 4:39pm Advance Directive Response Recorded Date/ Time Name of Medical Power of Architect Marine April 18, 2022 2:19pm Advance Directives No March 14, 2016 8:46am Living Will Yes April 18 2:19pm Power of Architect Marine Yes April 18, 2022 2:19pm Advance Directive Response Recorded Date/ Time Advance Directives No March 14, 2016 9:46am Living Will Yes April 18 3:19pm Power of Architect Marine Yes April 18, 2022 3:19pm Advance Directive Response Recorded Date/ Time Advance Directives No March 14, 2016 8:46am Living Will Yes April 18 2:19pm Power of Architect Marine Yes April 18, 2022 2:19pm Advance Directive Response Recorded Date/ Time Do you have a Healthcare Power of Architect Marine? Yes December 01, 2024 4:29pm Advance Directives No March 14, 2016 9:46am Family History No Family History Records Found Relationship Condition Age at Onset Recorded Date/T dima mother Angina at rest Unknown Hypertension Unknown Multiple lipomas Unknown father Angina at rest Unknown Diabetes mellitus Unknown Cardiac disease Unknown Cerebrovascular accident (CVA) Unknown Lymphoma Unknown brother Diabetes mellitus Unknown sister Lymphoma Unknown Relationship Condition Age at Onset Recorded Date/T dima mother Angina at rest Unknown Hypertension Unknown Multiple lipomas Unknown Atrial fibrillation Unknown father Angina at rest Unknown Diabetes mellitus Unknown Cardiac disease Unknown Cerebrovascular accident (CVA) Unknown Lymphoma Unknown Coronary artery disease Unknown brother Diabetes mellitus Unknown sister Lymphoma Unknown Malignant neoplasm of uterus Unknown grandmother Malignant neoplasm of cervix Unknown Summary Purpose Additional Source Comments Care Team (unrecognized sect ion and content) Team Status: Active Member Role Status Dates Dr. Keyanna Gracia , Family Provider Active Carmen Brannon PUBLIC RELATIONS COORDINATOR, PUBLIC RELATIONS COORDINATOR-C Primary Care Provider Active Team Status: Inactive Member Role Status Dates Carmen Brannon PUBLIC RELATIONS COORDINATOR, PUBLIC RELATIONS COORDINATOR-C Primary Care Provider, Referrin g Provider Active Gloria Lorenz PUBLIC RELATIONS COORDINATOR, PUBLIC RELATIONS COORDINATOR-C Attending Provider Active Team Status: Inactive Member Role Status Dates Carmen Brannon PUBLIC RELATIONS COORDINATOR, PUBLIC RELATIONS COORDINATOR-C Primary Care Provider, Referrin g Provider Active Dr. Mahesh Hoyt MD Attending Provider Active Team Status: Active Member Role Status Dates Carmen Brannon PUBLIC RELATIONS COORDINATOR, PUBLIC RELATIONS COORDINATOR-C Primary Care Provider Active Mari Fox Attending Provider Active Team Status: Inactive Member Role Status Dates Carmen Brannon NP, PUBLIC RELATIONS COORDINATOR-C Primary Care Provider Active Dr. Mahesh Hoyt MD Attending Provider, Referring Pro vider Active Team Status: Active Member Role Status Dates Dr. Keyanna Gracia DO Family Provider Active Mena Britton Primary Care Provider Active Team Status: Inactive Member Role Status Dates Carmen Brannon PUBLIC RELATIONS COORDINATOR, PUBLIC RELATIONS COORDINATOR-C Referring Provider Active Sakina Baptiste PUBLIC RELATIONS COORDINATOR, PUBLIC RELATIONS COORDINATOR-C Attending Provider Active Mena Britton Primary Care Provider Active Team Status: Inactive Member Role Status Dates Mena Reba Primary Care Provider, Referring Pro vider Active Dr. Annelise Leos MD Attending Provider Active Team Status: Inactive Member Role Status Dates Mena Britton Primary Care Provider Active Dr. Annelise Leos MD Attending Provider, Referring Provider Active Mechanism Inspector Relationship Specialty Start Date End Date Mena Britton APRN.CNP PCP - General 06/30/22 Team Status: Active Member Role/Relationship Status Dates Menaamando Britton Primary Care Provider Active Team Status: Inactive Member Role/Relationship Status Dates Mena Jerryer Primary Care Provider Active S tart: September 20, 2024 End: September 20, 2024 Dr. Thelma Kwon MD Attending Provider Active Start: September 20, 2024 End: September 20, 2024 Dr. Thelma Kwon MD Referring Provider Active Start: September 20, 2024 End: September 20, 2024 Team Status: Inactive Member Role/Relationship Status Dates Menaamando Britton Primary Care Provider Active S tart: November 08, 2024 Dr. Thelma Kwon MD Attending Provider Active Start: November 08, 2024 Team Status: Inactive Member Role/Relationship Status Dates Mena Reba Primary Care Provider Active S tart: December 01, 2024 End: December 01, 2024 Mainor Portillo MD Referring Provider Active Star t: December 01, 2024 End: December 01, 2024 Mainor Portillo MD Emergency Provider Active Star t: December 01, 2024 End: December 01, 2024 Care Team (unrecognized sect ion and content) Care Team Personnel Name: CARMEN BRANNON APRN-NUTRITION WORKER Position: P4 Advanced Practice Nurse Member Role: Primary Care Physician Address: Address: [address] [place] [id number]- Care Team Related Persons Name: PJ VINSON Address: Home [address] [place], [place] [id number] [place] Care Team Personnel Name: MENA BRITTON COMMUNITY SERVICE PATROL OFFICER-NUTRITION WORKER Position: P4 Advanced Practice Nurse Member Role: Primary Care Physician Address: Address: [address] [place] [address]- Care Team Related Persons Name: PJ VINSON Address: Home [address] [place], [place] [id number] Goals (unrecognized section and content) Goals may be documented in a n alternate section INFORMATION SOURCE (unrecogn ized section and content) DATE CREATED AUTHOR 12/02/2023 [facility] (ID) DATE CREATED AUTHOR AUTHOR'S ORGANIZ ATION 03/17/2024 [facility] DATE CREATED AUTHOR AUTHOR'S ORGANIZ ATION 11/06/2024 [facility] DATE CREATED AUTHOR AUTHOR'S ORGANIZ ATION 01/21/2025 [facility] Source Comments (unrecognize d section and content) In the event this informatio n is protected by the Federal Confidentiality of Alcohol and Drug Abuse Patient Records regulations: The Federal rules restrict any use of the information to criminally investigate or prosecute any alcohol or drug abuse patient.[facility] Reason for Visit (unrecogniz ed section and content) Reason Comments 06/04/2023 [facility] FOR RECORDS PERTAINING TO PATIENTS WHO ARE OR HAVE BEEN ENROLLED IN A CHEMICAL DEPENDENCY/SUBSTANCEABUSE PROGRAM, SOME INFORMATION MAY BE OMITTED. This clinical summary was aggregated from multiple sources. Caution should be exercised in using it in the provision of clinical care. This summary normalizes information from multiple sources, and as a consequence, information in this document may materially change the coding, format and clinical context of patient data. In addition, data may be omitted in some cases. CLINICAL DECISIONS SHOULD BE BASED ON THE PRIMARY CLINICAL RECORDS. [facility]. provides no warranty or guarantee of the accuracy or completeness of information in this document.
[2025-02-10 12:40] LABS: Hematocrit 39.9 % (37-47); Hemoglobin 13.7 g/dL (12.0-15.0); Mean Corp Hgb Conc 34.3 g/dL (32-36); Mean Corpuscular Volume 88.9 fL (81-99); Mean Platelet Vol. 10.8 fl (6.2-12.0); Platelet Count 220 K/mm3 (150-450); RBC Distribution Width CV 12.5 % (11.6-14.6); RBC Distribution Width SD 40.9 fl (35.1-43.9); Red Blood Count 4.49 M/mm3 (4.2-5.4); White Blood Count 5.4 K/mm3 (4.4-11.0)
--- NOTE | 2025-02-10 12:50 | RAD_ITS ---
PROCEDURE: FOOT MIN 3 VIEWS 02/10/2025 REASON FOR EXAM: LEFT FOOT PAIN TECHNIQUE: Procedure Code: RADFO Modality: DX Procedure: FOOT MIN 3 VIEWS Laterality: Left foot COMPARISON: None FINDINGS: Bones: No visible fracture. No suspicious bone lesion. Joints: Mild degree of degenerative changes of the 1st metatarsophalangeal joint. Soft tissues: Soft tissues are unremarkable. Other: RAD/Foot min 3 Views IMPRESSION: Mild degree of degenerative changes of the 1st metatarsophalangeal joint. Reading Location: [id number]
[2025-02-10 13:21] LABS: AST(SGOT) 23 U/L (<=31); Alanine Aminotransfer ALT/SGPT 21 U/L (<=34); Albumin, Serum 4.4 g/dL (3.4-4.8); Alkaline Phosphatase 74 U/L (35-104); Anion Gap 11 (5-15); BUN 23 mg/dL (4-19); BUN/Creat Ratio 34.8 RATIO (10-20); Calcium,Total 9.3 mg/dL (7.6-11.0); Carbon Dioxide 25.1 mmol/L (21.0-32.0); Chloride 100 mmol/L (98-108); Globulin 2.4 g/dL (2.2-4.2); Glucose 98 mg/dL (70-99); Potassium 3.8 mmol/L (3.3-5.1)
== END | disposition home or self-care (01) ==
LOC: RAD 11:52
PROVIDERS: PCP Registered Nurse; Referring Provider Registered Nurse; Visit Provider Registered Nurse
DX: M77.42 Metatarsalgia, left foot (principal)
CPT/HCPCS: 36415; 73630; 80053; 84439; 84443; 85027